=== PATIENT | female | born 1960 | race Caucasian/White ===

== ENCOUNTER 2022-07-21 14:28 | Outpatient (CLI) | payer BC, SELFPAY ==
--- NOTE | 2022-07-21 14:40 | CRLHL7_ITS ---
For Patients: As a result of the Century Cures Act, medical imaging exams and procedure reports are released immediately into your electronic medical record. You may view this report before your referring provider. If you have questions, please contact your health care provider. BILATERAL SCREENING MAMMOGRAM WITH COMPUTER-AIDED DETECTION AND TOMOSYNTHESIS TECHNIQUE: CC and MLO views were obtained. These mammographic images have been obtained using full-field digital technique. These mammographic images were interpreted with the benefit of computer-aided detection. Breast Tomosynthesis was used in this interpretation. COMPARISON FILM: 07/16/21, 07/16/20, 06/17/19. FINDINGS: There are scattered areas of fibroglandular density IMPRESSION: There is no radiographic evidence for malignancy. ASSESSMENT: BI-RADS Category 1: Negative RECOMMENDATION: Routine screening mammogram in 1 year. A lay language report of this examination will be provided to the patient. Stoney Morales M.D. Diagnostic Radiologist [email or web address] NIRALI/Dictated by: Stoney Morales MD @ 07/22/2022 1:13:00 PM (Electronically Signed)
== END 2022-07-21 14:29 | disposition home or self-care (01) ==
LOC: MAMMO 14:29
PROVIDERS: PCP Internal Medicine; Visit Provider Internal Medicine
DX: Z12.31 Encounter for screening mammogram for malignant neoplasm of breast (principal)
CPT/HCPCS: 77063; 77067

== ENCOUNTER 2022-08-19 08:04 | Outpatient (CLI) | payer BC, SELFPAY ==
--- OUTSIDE RECORDS SUMMARY | 2022-08-19 08:07 | XMS_ITS | Encounter Summary ---
:1960 Author Organization [facility] Address [address] [place] [address] Care Team Providers Name Role Phone Unavailable Primary Care Provider Unavailable Encounter Details Date Type Department Care Team Description 03/01/2021 Orders Only [facility] Sa pippa Luis M.D. [address] [place], [place] [phone] (Wo rk) Social History Tobacco Use Types Packs/Day Years Used Date Smoking Tobacco: Former Smokeless Tobacco: Never Alcohol Use Standard Drinks/Week Comments Yes 0 (1 standard drink = 0.6 oz pure alcoho l) Sex Assigned at Date Recorded Not on file documented as of this encounter Plan of Treatment Not on filedocumented as of this encounter Visit Diagnoses Not on filedocumented in this encounter
--- OUTSIDE RECORDS SUMMARY | 2022-08-19 08:07 | XMS_ITS | Encounter Summary ---
:1960 Author Organization [facility] Address [address] [place] [address] Care Team Providers Name Role Phone Unavailable Primary Care Provider Unavailable Reason for Visit Reason Comments Rapid Heart Rate Encounter Details Date Type Department Care Team Description 02/11/2019 Emergency [place] Wade Trevino Emergency Department Mickie EASON M.D. Supraventricular [id number] [address] [place] [address] Paroxysmal (HCC) (Primary [place], [place] Blvd Dx) [address] [place], [place] [phone] (Wo rk) Social History Tobacco Use Types Packs/Day Years Used Date Smoking Tobacco: Former Smokeless Tobacco: Never Alcohol Use Standard Drinks/Week Comments Yes 0 (1 standard drink = 0.6 oz pure alcoho l) Sex Assigned at Date Recorded Not on file documented as of this encounter Last Filed Vital Signs Vital Sign Reading Time Taken Comments Blood Pressure 120/84 02/11/2019 7:00 PM CDT Pulse 84 02/11/2019 7:00 PM CDT Temperature 36.9 ??C (98.4 ??F) 02/11/2019 5:22 PM CDT Respiratory Rate 17 02/11/2019 7:00 PM CDT Oxygen Saturation 94% 02/11/2019 7:00 PM CDT Inhaled Oxygen Concentration - - Weight - - Height - - Body Mass Index - - documented in this encounter Discharge Instructions AttachmentsThe following attachments cannot be sent through Care Everywhere. Supraventricular Tachycardia Adult (Trin[place])documented in this encounter Medications at Time of Discharge Medication Sig Dispensed Refills Start Date End Date aspirin [address] tablet Take 325 mg by mouth. 0 02/14/2013 fluticasone propionate 1 spray. 0 02/17/2013 (FLONASE) 50 mcg/actuation nasal spray multivitamin tablet Take 1 tablet by mouth. 0 gabapentin Take 200 mg by mouth at 0 (for_NEURONTIN) 100 mg bedtime. capsule gabapentin (NEURONTIN) gabapentin 100 mg capsule 0 100 mg capsule 2 tablets qhs levothyroxine Take 1 tablet by mouth 0 11/12/2011 (SYNTHROID) 75 mcg daily. Pt states she tablet takes 80mg levothyroxine levothyroxine 88 mcg tablet 0 (SYNTHROID, LEVOTHROID) once daily 88 mcg tablet documented as of this encounter ED Notes Wade Trevino III, M.D. - 02/11/2019 7:14 PM CDT SUBJECTIVE CHIEF COMPLAINT/REASON FOR VISIT Rapid Heart Rate HISTORY OF PRESENT ILLNESS History provided by: Patient Rapid Heart Rate Location: Chest Quality: Tachycardia Severity: Severe Onset quality: Sudden Duration: 25 minutes Timing: Constant Progression: Unchanged Chronicity: Recurrent Context: History of PSVT Relieved by: Nothing Worsened by: Nothing Ineffective treatments: Vagal maneuvers Associated symptoms: no abdominal pain, no chest pain, no congestion, no cough, no diarrhea, no ear pain, no fatigue, no fever, no nausea, no rash, no shortness of breath, no sore throat, no vomiting and no wheezing Associated symptoms comment: None Risk factors: Hx of PSVT REVIEW OF SYSTEMS Constitutional: Negative for chills, fatigue and fever. HENT: Negative for congestion, ear pain, sore throat and trouble swallowing. Eyes: Negative. Respiratory: Negative for cough, shortness of breath and wheezing. Cardiovascular: Positive for palpitations. Negative for chest pain and leg swelling. Gastrointestinal: Negative for abdominal pain, constipation, diarrhea, nausea and vomiting. Endocrine: Negative for cold intolerance and heat intolerance. Genitourinary: Negative for dysuria, frequency, urgency, vaginal bleeding, vaginal discharge and vaginal pain. Musculoskeletal: Negative. Skin: Negative for color change and rash. Allergic/Immunologic: Negative. Neurological: Negative. Hematological: Negative for adenopathy. Does not bruise/bleed easily. Psychiatric/Behavioral: Negative for depression. OBJECTIVE Initial Vitals Temperature Pulse Rate Heart Rate Resp Rate Blood Pressure SpO2 02/11/19 1722 02/11/19 1730 02/11/19 1722 02/11/19 1722 02/11/19 1722 02/11/19 1722 36.9 ??C (!) 216 (!) 217 20 (!) 149/113 96 % Pain Score -- PHYSICAL EXAMINATION Constitutional: She appears well-developed and well-nourished. She appears distressed. HENT: Head: Normocephalic and atraumatic. Mouth/Throat: Mucous membranes are moist. Eyes: Conjunctivae and EOM are normal. Pupils are equal, round, and reactive to light. Neck: Normal range of motion. Neck supple. No JVD present. No neck adenopathy. Cardiovascular: Regular rhythm, S1 normal, S2 normal and normal heart sounds. Tachycardia present. Pulses are strong and palpable. Capillary refill: takes less than 3 seconds, Pulmonary/Chest: Effort normal and breath sounds normal. There is normal air entry. Abdominal: Soft. Bowel sounds are normal. She exhibits no distension. There is no tenderness. Musculoskeletal: Normal range of motion. Neurological: She is alert and oriented to person, place, and time. She has normal reflexes. No cranial nerve deficit. Skin: Skin is warm, dry, intact and normal color. Psychiatric: She has a normal mood and affect. Nursing note and vitals reviewed. Differential diagnoses includes but is not limited to: Psycho-Social stress, thyroid abnormalities, CHF, SVT, atrial fibrillation, ventricular tachycardia and ventricular fibrillation. This includes the life threatening complications of heart failure, V-Tach and V-Fib. ASSESSMENT/PLAN Impression and Plan After a diagnosis of SVT was made the patient was placed in the seated position. The modified REVERTwas performed successfully x1. Patient's rate returned to normal. Our plan is to have her follow up with her primary medical provider. His been several years since she has had to deal with this. Follow-up will determine whether not she needs to have a more definitive intervention in the future Critical care time less than 30 min. Final Diagnoses: as of Feb 11 1914 Tachycardia Supraventricular Paroxysmal (HCC) Wade Trevino III, M.D. 02/15/192101 Anni Guzman R.N. - 02/11/2019 5:43 PM CDT Pt presents to ED with rapid heart rate accompanied by indigestion and SOB. States she has felt the rapid heart rate previously but it usually resolves on its own. She was concerned that it lasted longer than usual and with the other symptoms. Anni Guzman R.N. 02/11/19 1744 documented in this encounter Plan of Treatment Not on filedocumented as of this encounter Procedures Procedure Name Priority Date/Time Associated Comments Diagnosis TROPONIN T, BASELINE, STAT 02/11/2019 5:49 PM Results for this 5TH GEN, P CDT procedure are i n the results section. ACTIVATED PARTIAL STAT 02/11/2019 5:49 PM Resu lts for this THROMBOPLASTIN TIME CDT procedur e are in (APTT), P the results section. PROTHROMBIN TIME (PT), STAT 02/11/2019 5:49 PM Results for this P CDT procedure are i n the results section. CBC WITH DIFFERENTIAL, STAT 02/11/2019 5:49 PM Results for this B CDT procedure are i n the results section. THYROID-STIMULATING STAT 02/11/2019 5:49 PM Re sults for this HORMONE-SENSITIVE CDT procedure are in (S-TSH) the results section. MAGNESIUM, S STAT 02/11/2019 5:49 PM Results f or this CDT procedure are i n the results section. BASIC METABOLIC PANEL, STAT 02/11/2019 5:49 PM Results for this S/P CDT procedure are i n the results section. ECG STAT 02/11/2019 5:38 PM Results f or this CDT procedure are i n the results section. ECG Routine 02/11/2019 5:22 PM Results f or this CDT procedure are i n the results section. documented in this encounter Results APTT (Activated Partial Thromboplastin Time) (02/11/2019 5:49 PM CDT) P athologist Signature APTT, P 29.5 23.7 - 36.1 02/11/2019 [facility] sec 6:31 PM CDT [facility] Specimen Anatomical Collection Method Collection Time Receive d Time (Source) Location / / Volume Laterality Blood (Blood, 02/11/2019 5:49 PM 02/12/20 19 5:51 Venous) CDT PM CDT Wade Trevino III, M.D. LAB BLOOD ADD-ON Performing Organization Address [facility] Phon e Number [address] [address] [facility] PT (Prothrombin Time) with INR (02/11/2019 5:49 PM CDT) athologist Signature Prothrombin 9.5 8.8 - 11.9 02/11/2019 [facility] Time, P sec 6:29 PM CDT [facility] INR 1.0 0.9 - 1.2 02/11/2019 [facility] 6:29 PM CDT [facility] Comment: Standard intensity warfarin therapeutic range: 2.0 to 3.0 High intensity warfarin therapeutic rang e: 2.5 to 3.5 Specimen Anatomical Collection Method Collection Time Receive d Time (Source) Location / / Volume Laterality Blood (Blood, 02/11/2019 5:49 PM 02/12/20 19 5:51 Venous) CDT PM CDT Wade Trevino III, M.D. LAB BLOOD ADD-ON Performing Organization Address [facility] Phon e Number [address] [address] [facility] Troponin T, Baseline, 5th gen (02/11/2019 5:49 PM CDT) athologist Signature Troponin T, 7 <=10 ng/L 02/11/2019 [facility] Baseline, 5th 6:13 PM CDT [facility]- gen [facility] Comment: Biotin has been identified by the [employer] as a potential interfering substance. ??Higher concentr ations of biotin may be found in multivitamins, hair/nail supple ments, and workout supplements. ??If the result does not ma [facility] clinical observations, repeat testing after patient refrains fr om the use of supplements for at least 12 hours. Specimen Anatomical Collection Method Collection Time Receive d Time (Source) Location / / Volume Laterality Blood (Blood, 02/11/2019 5:49 PM 02/12/20 19 5:51 Venous) CDT PM CDT Wade Trevino III, M.D. LAB BLOOD TROPONIN Performing Organization Address City/[facility]/ZIP Code Phon e Number [address] [address] [facility] S-TSH (Thyroid-Stimulating Hormone - Sensitive) (02/11/2019 5:49 PM CDT) athologist Signature TSH, Sensitive 2.3 0.3 - 4.2 02/11/2019 [facility] mIU/L 6:20 PM CDT [facility] Comment: Biotin has been identified by the [employer] as a potential interfering substance. ??Higher concentr ations of biotin may be found in multivitamins, hair/nail supple ments, and workout supplements. ??If the result does not ma h clinical observations, repeat testing after patient refrains fr om the use of supplements for at least 12 hours. Specimen Anatomical Collection Method Collection Time Receive d Time (Source) Location / / Volume Laterality Blood (Blood, 02/11/2019 5:49 PM 02/12/20 19 5:51 Venous) CDT PM CDT Wade Trevino III, M.D. LAB BLOOD ADD-ON Performing Organization Address [facility]/ZIP Code Phon e Number [address] [address] [facility] Magnesium (02/11/2019 5:49 PM CDT) athologist Signature Magnesium, S 2.1 1.7 - 2.3 02/11/2019 [facility] mg/dL 6:06 PM CDT [facility] Specimen Anatomical Collection Method Collection Time Receive d Time (Source) Location / / Volume Laterality Blood (Blood, 02/11/2019 5:49 PM 02/12/20 19 5:51 Venous) CDT PM CDT Wade Trevino III, M.D. LAB BLOOD ADD-ON Performing Organization Address [facility]/ZIP [facility] Phon e Number [address] [address] [facility] (ABNORMAL) BMP (Basic Metabolic Panel) (02/11/2019 5:49 PM CDT) P athologist Signature Potassium, P 3.4 (L) 3.6 - 5.2 02/11/2019 [facility] mmol/L 6:11 PM T [facility] Sodium, P 141 135 - 145 02/11/2019 [facility] mmol/L 6:11 PM [facility] Chloride, P 102 98 - 107 02/11/2019 [facility] mmol/L 6:11 PM [facility] Bicarbonate, P 22 22 - 29 02/11/2019 [facility] mmol/L 6:11 PM [facility] Anion Gap, P 17 (H) 7 - 15 02/11/2019 [facility] 6:11 PM [facility] BUN (Blood Urea 13 6 - 21 02/11/2019 [facility] Nitrogen), P mg/dL 6:11 PM [facility] Creatinine 0.83 0.59 - 02/11/2019 [facility] 1.04 mg/dL 6:11 PM [facility] eGFR-Black/Afri >90 >=60 02/11/2019 [facility] can Danish mL/min/BSA 6:11 PM [facility] Comment: ----ADDITIONAL INFORMATION---- Estimated GFR calculated using the 2009 CKD_EPI creatinine equation. eGFR Non-Black/ 79 >=60 mL/min/BSA 02/11/2019 6:11 PM [facility] Danish [facility] Comment: ----ADDITIONAL INFORMATION---- Estimated GFR calculated using the 2009 CKD_EPI creatinine equation. Calcium, Total, P 9.1 8.6 - 10.0 mg/dL 02/11/2019 6 :11 PM T [facility] Glucose, P 138 70 - 140 mg/dL 02/11/2019 6:11 PM CDT [facility] Specimen Anatomical Collection Method Collection Time Receive d Time (Source) Location / / Volume Laterality Blood (Blood, 02/11/2019 5:49 PM 02/12/20 19 5:51 Venous) CDT PM CDT Wade Trevino III, M.D. LAB BLOOD ADD-ON Performing Organization Address City/State/ZIP Code Phon e Number [facility] [id number] [address] [facility] (ABNORMAL) CBC with Differential (02/11/2019 5:49 PM CDT) [facility] Method Time Signature Hemoglobin 12.0 11.6 - 02/11/2019 [facility] 15.0 g/dL 5:57 PM CDT [facility] Hematocrit 36.5 35.5 - 02/11/2019 [facility] 44.9 % 5:57 PM CDT [facility] Erythrocytes 4.17 3.92 - 02/11/2019 [facility] 5.13 5:57 PM CDT HEALTH x10(12)/L [facility] MCV 87.5 78.2 - 02/11/2019 [facility] 97.9 fL 5:57 PM CDT [facility] RBC Distrib Width 13.5 12.2 - 02/11/2019 [facility] 16.1 % 5:57 PM CDT [facility] Platelet Count 373 (H) 157 - 371 02/11/2019 [facility] x10(9)/L 5:57 PM CDT [facility] Leukocytes 9.6 3.4 - 9.6 02/11/2019 [facility] x10(9)/L 5:57 PM CDT [facility] Neutrophils 5.29 1.56 - 02/11/2019 [facility] 6.45 5:57 PM CDT HEALTH x10(9)/L [facility] Lymphocytes 3.66 (H) 0.95 - 02/11/2019 [facility] 3.07 5:57 PM CDT HEALTH x10(9)/L [facility] Monocytes 0.45 0.26 - 02/11/2019 [facility] 0.81 5:57 PM CDT HEALTH x10(9)/L [facility] Eosinophils 0.15 0.03 - 02/11/2019 [facility] 0.48 5:57 PM CDT HEALTH x10(9)/L [facility] Basophils 0.03 0.01 - 02/11/2019 [facility] 0.08 5:57 PM CDT HEALTH x10(9)/L [facility]- [facility] Specimen Anatomical Collection Method Collection Time Receive d Time (Source) Location / / Volume Laterality Blood (Blood, 02/11/2019 5:49 PM 02/12/20 19 5:51 Venous) CDT PM CDT Wade Trevino III, M.D. LAB BLOOD ADD-ON Performing Organization Address City/State/ZIP Code Phon e Number [facility]- [id number] [address] [facility] ECG 12 Lead (02/11/2019 5:38 PM CDT) P athologist Signature Ventricular Rate 112 BPM MUSE ECG/Min [place] Interval 184 ms MUSE QRSD Interval 86 ms MUSE QT Interval 328 ms MUSE QTC Interval 447 ms MUSE P [place] 1 degrees MUSE R [place] 21 degrees MUSE T Wave [place] 12 degrees MUSE Specimen Anatomical Collection Method Collection Time Receive d Time (Source) Location / / Volume Laterality 02/11/2019 5:38 PM 9 5:41 CDT PM CDT Impressions MUSE - 02/11/2019 5:41 PM CDT Sinus tachycardia Otherwise normal ECG When compared with ECG of 11-FEB-2019 17 :22, Significant changes have occurred Narrative This result has an attachment that is no t available. Procedure Note Moises Tovar Jr., M.D. - 02/11/2019For matting of this note might be different from the original. IMPRESSION: Sinus tachycardia Otherwise normal ECG When compared with ECG of 11-FEB-2019 17 :22, Significant changes have occurred Wade Trevino III, M.D. ECG ORDERABLES Performing Organization Address City/State/ZIP Code Phon e Number MUSE MUSE NA ECG 12 Lead (Routine) (02/11/2019 5:22 PM CDT) P athologist Signature Ventricular Rate 211 BPM MUSE ECG/Min QRSD Interval 86 ms MUSE QT Interval 210 ms MUSE QTC Interval 393 ms MUSE R [place] 22 degrees MUSE T Wave [place] 165 degrees MUSE Specimen Anatomical Collection Method Collection Time Receive d Time (Source) Location / / Volume Laterality 02/11/2019 5:22 PM 9 5:28 CDT PM CDT Impressions MUSE - 02/11/2019 5:28 PM CDT Supraventricular tachycardia ST and T wave abnormality, consider infe rolateral ischemia No previous ECGs available Narrative This result has an attachment that is no t available. Procedure Note Moises Tovar Jr., M.D. - 02/11/2019For matting of this note might be different from the original. IMPRESSION: Supraventricular tachycardia ST and T wave abnormality, consider infe rolateral ischemia No previous ECGs available Wade Trevino III, M.D. ECG ORDERABLES Performing Organization Address City/State/ZIP Code Phon e Number MUSE MUSE NA documented in this encounter Visit Diagnoses Diagnosis Tachycardia Supraventricular Paroxysmal (HCC) - Primary documented in this encounter Administered Medications Inactive Administered Medications - up to 3 most recent administrations Medication Order MAR Action Action Date Dose Rate Site sodium chloride 0.9 % injection 10 mL 10 mL, intravenous, As needed, line care, Starting on Thu02/11/19 at 1737, Peripheral Intravenous Catheter and Rapid Infusion Cat heter, prior to blood sampling, post blood transfusion or post blood samplin g sodium chloride 0.9 % injection 3 mL 3 mL, intravenous, As needed, line care, Starting on Thu02/11/19 at 1737, Prior to and following infusion and between multi ple consecutive infusions: sodium chloride 0.9 % injection sodium chloride 0.9 % injection 3 mL 3 mL, intravenous, Every 12 hours scheduled, First dos e on Thu02/11/19 at 2100, Peripheral Intravenous Catheter and Rapi d Infusion Catheter, when no infusion to maintain patency documented in this encounter Active and Recently Administered Medications Times are shown in CDT. Scheduled Medication Order 02/09/2019 02/10/2019 02/11/2019 sodium chloride 0.9 % injection 3 mL 3 mL, intravenous, Every 12 hours schedu led, First dose on Thu02/11/19 at 2100, Peripheral Intravenous Catheter and Rapid Infusion Catheter, when no infusion to maintain patency PRN Medication Order 02/09/2019 02/10/2019 02/11/2019 sodium chloride 0.9 % injection 10 mL 10 mL, intravenous, As needed, line care , Starting on Thu02/11/19 at 1737, Peripheral Intravenous Catheter and Rapid Infusion Catheter, prior to blood sampling, post blood transfusion or post blood sampling sodium chloride 0.9 % injection 3 mL 3 mL, intravenous, As needed, line care, Starting on Thu02/11/19 at 1737, Prior to and following infusion and between multiple consecutive infusions: sodium chloride 0.9 % injection documented in this encounter
--- OUTSIDE RECORDS SUMMARY | 2022-08-19 08:07 | XMS_ITS | Encounter Summary ---
:1960 Author Organization [facility] Address [address] [place] [address] Care Team Providers Name Role Phone Unavailable Primary Care Provider Unavailable Reason for Visit Reason Comments Finger Injury crushing thumb right hand ye sterday morning. unable to move it well Appointment Request (Routine) - Closed Specialty Diagnoses / Procedures Referred By Contact Refer red To Contact Family Medicine Referral ID Status Reason Start Date Expiration Date Visits Requ ested Visits Authorized [id number] Closed 11/12/2020 11/12/2021 1 1 Encounter Details Date Type Department Care Team Description 11/12/2020 Office Visit Urgent Care in [place] Simon Rodriguez, Pain [place], [place] P.A.-C., P.A. (Primary Dx) [address] [phone] Social History Tobacco Use Types Packs/Day Years Used Date Smoking Tobacco: Former Smokeless Tobacco: Never Alcohol Use Standard Drinks/Week Comments Yes 0 (1 standard drink = 0.6 oz pure alcoho l) Sex Assigned at Date Recorded Not on file documented as of this encounter Last Filed Vital Signs Vital Sign Reading Time Taken Comments Blood Pressure 156/95 11/12/2020 2:02 PM PICKLE MAKER Pulse 73 11/12/2020 2:02 PM PICKLE MAKER Temperature 36.3 ??C (97.3 ??F) 11/12/2020 2:02 PM PICKLE MAKER Respiratory Rate 20 11/12/2020 2:02 PM PICKLE MAKER Oxygen Saturation 100% 11/12/2020 2:02 PM PICKLE MAKER Inhaled Oxygen Concentration - - Weight 87.6 kg (193 lb 2 oz) 11/12/2020 2:02 PM PICKLE MAKER Height 159.4 cm (5' 2.76) 11/12/2020 2:02 PM PICKLE MAKER Body Mass Index 34.48 11/12/2020 2:02 PM PICKLE MAKER documented in this encounter Patient Instructions Patient InstructionsSimon Rodriguez P.A.-C., P.A. - 11/12/2020 2:00 PM PICKLE MAKER Thank you for allowing me to participate in your care. Please take medication as prescribed. Return to the clinic/ER if symptoms worsen or fail to improve; or if they change in any manner. Please complete your health maintenance, or discuss this with your primary care provider and receiveyour annual exam if not done so already! Ice, motrin and keep splint on for the next 5-7 days. LE MAKER documented in this encounter Progress Notes Simon Rodriguez P.A.-C., P.A. - 11/12/2020 2:00 PM CST SUBJECTIVE Patient ID: Ashleigh Acevedo is a 60 y.o. female. HISTORY OF PRESENT ILLNESS A pleasant 52-year-old female presents to clinic today after she smashed her thumb around 730 yesterday morning in a door open outdoor heater. She states that it did bleed a little bit locates the discomfort located on the right thumb. She is right-handed dominant. She states that she does have range of motion present to flexion extension of the thumb but does cause discomfort locates the pain right at the distal aspect of the thumb and describes it as throbbing. No history of injury to the thumb. She has tried [id number] medication without complete resolution of her symptoms. REVIEW OF SYSTEMS See HPI Patient Active Problem List Diagnosis ??? Hypothyroidism ??? Temporomandibular Joint Disorder ??? Menopausal And Female Climacteric States ??? Osteoarthritis ??? Palpitations ??? Polyp Colon Adenomatous ??? Rhinitis Allergic ??? Myofascial Pain Syndrome CURRENT MEDICATIONS Current Outpatient Medications: ??? aspirin [address] tablet, Take 325 mg by mouth., Disp: , Rfl: ??? fluticasone propionate (FLONASE) 50 mcg/actuation nasal spray, 1 spray., Disp: , Rfl: ??? gabapentin (for_NEURONTIN) 100 mg capsule, Take 200 mg by mouth at bedtime., Disp: , Rfl: ??? gabapentin (NEURONTIN) 100 mg capsule, gabapentin 100 mg capsule 2 tablets qhs, Disp: , Rfl: ??? levothyroxine (SYNTHROID) 75 mcg tablet, Take 1 tablet by mouth daily. Pt states she takes 80mg,Disp: , Rfl: ??? levothyroxine (SYNTHROID, LEVOTHROID) 88 mcg tablet, levothyroxine 88 mcg tablet once daily, Disp: , Rfl: ??? multivitamin tablet, Take 1 tablet by mouth., Disp: , Rfl: ??? omeprazole (PriLOSEC) [address] capsule, Take 20 mg by mouth daily., Disp: , Rfl: ??? traMADoL (ULTRAM) 50 mg tablet, Take 1 tablet (50 mg total) by mouth every 6 (six) hours as needed for pain for up to 3 days Indications: acute pain., Disp: 12 tablet, Rfl: 0 ALLERGIES/CONTRAINDICATIONS Allergies Allergen Reactions ??? No Known Allergies Other (see comments) OBJECTIVE VITAL SIGNS Vitals: 11/12/20 1402 BP: (!) 156/95 BP Location: Left arm Patient Position: Sitting Cuff Size: Large Pulse: 73 Resp: 20 Temp: 36.3 ??C SpO2: 100% Weight: 87.6 kg Height: 159.4 cm PHYSICAL EXAMINATION General: Patient sitting in exam room in no apparent distress, with appropriate mood and affect. Inspection the thumb does reveal edema as well as subungunal hematoma. She does have no anatomical snuffbox discomfort palpation good range of motion the thumb discomfort is more the distal aspect of the thumb but bracing the DIP she does still have flexion and extension. Dx Thumb Right Result Date: 11/12/2020 Impression: No acute fracture. Mild to moderate polyarticular degenerative change. DIAGNOSTICS No results found for this or any previous visit (from the past 24 hour(s)). ASSESSMENT / PLAN #1 Pain Thumb Right - DX Thumb Right; Future; Expected date: 11/12/2020 Other orders - traMADoL (ULTRAM) 50 mg tablet; Take 1 tablet (50 mg total) by mouth every 6 (six) hours as neededfor pain for up to 3 days Indications: acute pain., Starting 11/12/2020, Until Jackie 11/15/2020, Normal - Td (TENIVAC, DECAVAC) Vaccine PF (7 years and older) Plan: 1. Thumb contusion which we will treat with use of tramadol for breakthrough pain after anti-inflammatory medications have been updated. Tetanus shot has been updated and also place in a thumb brace toprotect that area. Good return sooner if symptoms worsen or fail to improve. The side effects of the medication were discussed and the patient/family member showed verbal understanding. They will return to the clinic * if symptoms worsen, fail to improve or change. Health maintenance reminded to complete if not already completed. LE MAKER documented in this encounter Plan of Treatment Not on filedocumented as of this encounter Results DX Thumb Right (11/12/2020 2:30 PM PICKLE MAKER) Anatomical Region Laterality Modality Upper Extremity, Fingers, Musculoskeletal RST LOS, Right Digital Radiography Musculoskeletal ARZ LOS, Muskuloskeletal FLA LOS Specimen (Source) Anatomical Collection Method Collection Time Re ceived Time Location / / Volume Laterality 11/12/2020 2:34 PM PICKLE MAKER Impressions 11/12/2020 2:37 PM PICKLE MAKER No acute fracture. Mild to moderate polyarticular degenerative change. Narrative 11/12/2020 2:37 PM PICKLE MAKER EXAM: DX THUMB RIGHT Procedure Note Oscar Loomis M.D. - 11/12/2020Formatt ing of this note might be different from the original. EXAM: DX THUMB RIGHT IMPRESSION: No acute fracture. Mild to moderate poly articular degenerative change. Simon Rodriguez P.A.-C., P.A. [facility] PROC EDURES documented in this encounter Visit Diagnoses Diagnosis Pain Thumb Right - Primary Pain Thumb Right documented in this encounter
--- OUTSIDE RECORDS SUMMARY | 2022-08-19 08:07 | XMS_ITS | Clinical Summary ---
:1960 Author Organization [facility] Address [address] [place] [address] Care Team Providers Name Role Phone Unavailable Primary Care Provider Unavailable Source Comments Patient records contain information from all sites at [facility]. For routine questions regarding patient records, call [phone] during business hours, M-F 8:00 AM - 5:00 PM Central Time. Record requests for emergency care only can be directed to [phone] at any time.[facility] Allergies Active Allergy Reactions Severity Noted Date Comments No Known Allergies Other (see comments) 11/12/2011 Medications Medication Sig Dispensed Refills Start Date End Date Status levothyroxine Take 1 tablet by 0 11/12/2011 Active (SYNTHROID) 75 mcg mouth daily. Pt tablet states she takes 80mg gabapentin Take 200 mg by mouth 0 Active (for_NEURONTIN) 100 at bedtime. mg capsule aspirin [address] Take 325 mg by 0 02/14/2013 Active tablet mouth. fluticasone 1 spray. 0 02/17/2013 Active propionate (FLONASE) 50 mcg/actuation nasal spray gabapentin gabapentin 100 mg capsule 0 Active (NEURONTIN) 100 mg 2 tablets qhs capsule levothyroxine levothyroxine 88 mcg tablet 0 Active (SYNTHROID, once daily LEVOTHROID) 88 mcg tablet multivitamin tablet Take 1 tablet by 0 05/27/2011 Active mouth. omeprazole Take 20 mg by mouth 0 10/17/2020 Active (PriLOSEC) [address] daily. capsule Active Problems Problem Noted Date Menopausal And Female Climacteric States 11/12/2020 Temporomandibular Joint Disorder 09/10/2018 Osteoarthritis 09/10/2018 Myofascial Pain Syndrome 09/10/2018 Hypothyroidism 02/25/2014 Overview: Hypothyroidism Polyp Colon Adenomatous 04/27/2013 Overview: Overview: Colonoscopy 03/2013 polyp repeat in 5 yea rs Palpitations 12/03/2011 Rhinitis Allergic 05/27/2011 Immunizations Name Administration Dates Next Due Influenza (IM) Preservative Free 10/15/2013, 10/06/2007 Influenza TIV (IM) 08/30/2018 Influenza, Seasonal, Injectable 10/09/2011 RZV (SHINGRIX) 01/26/2020 Td Preservative Free (TENIVAC, 11/12/2020 DECAVAC) Tdap 08/12/2010 influenza vaccine quad 08/03/2017, 08/23/2016, 08/26/2015, (FLUZONE/FLUARIX) (6 months and 08/26/2014 older)(PF) Family History Medical History Relation Name Comments Hyperlipidemia Mother Hypertension Mother Relation Name Status Comments Mother Social History Tobacco Use Types Packs/Day Years Used Date Smoking Tobacco: Former Smokeless Tobacco: Never Alcohol Use Standard Drinks/Week Comments Yes 0 (1 standard drink = 0.6 oz pure alcoho l) Sex Assigned at Date Recorded Not on file Last Filed Vital Signs Vital Sign Reading Time Taken Comments Blood Pressure 156/95 11/12/2020 2:02 PM BRANCH CONTROLLER Pulse 73 11/12/2020 2:02 PM BRANCH CONTROLLER Temperature 36.3 ??C (97.3 ??F) 11/12/2020 2:02 PM BRANCH CONTROLLER Respiratory Rate 20 11/12/2020 2:02 PM BRANCH CONTROLLER Oxygen Saturation 100% 11/12/2020 2:02 PM BRANCH CONTROLLER Inhaled Oxygen Concentration - - Weight 87.6 kg (193 lb 2 oz) 11/12/2020 2:02 PM BRANCH CONTROLLER Height 159.4 cm (5' 2.76) 11/12/2020 2:02 PM BRANCH CONTROLLER Body Mass Index 34.48 11/12/2020 2:02 PM BRANCH CONTROLLER Plan of Treatment Health Maintenance Due Date Last Done Comments CT Colonography 1960 Cologuard 1960 Colonoscopy 1960 Colorectal Cancer 1960 Surveillance HIV Screening 1960 Hepatitis B Vaccines (1 of 1962 3 - 3-dose series) Hepatitis C Screening 1960 Lipid (Cholesterol) 1960 Screening Mammogram 1960 COVID-19 Vaccine (#1) 1960 Thyroid Stimulating Hormone 02/12/2020 02/11/2019 (TSH) test for thyroid function Cervical Cancer Screening 06/08/2021 06/08/2018 Depression Screening 11/30/2021 (Annual PHQ-2) Fasting Glucose for 02/11/2022 02/11/2019 Diabetes Screening Influenza Vaccine (#1) 2022 09/01/2020, 10/25/2019, 08/30/2018, Additional history exists DTaP,Tdap,and Td Vaccines 11/12/2030 11/12/2020, 07/12/2020 , (4 - Td or Tdap) 08/12/2010 Zoster Vaccines Completed 01/26/2020, 09/02/2019 Pneumococcal vaccine (0-64 Aged Out No lo nger eligible years) based on patient 's age to complete this topic Insurance Payer Benefit Plan Subscriber ID Effective Phone Address Typ e / Group Dates STATE [facility] STATE FUND [id number] 2018-Pres [address] [place] [address] [facility] [id number] 2016-Prese [phone] [id number] PPO [facility] [address] [place] [address] [place] (Home) [place] [address] [address] [employer] [address] [employer] Workers Comp Employer 11/30/1900 [phone] ([place]) [place] [address]
--- OUTSIDE RECORDS SUMMARY | 2022-08-19 08:07 | XMS_ITS | Encounter Summary ---
:1960 Author Organization [facility] Address [address] [place] [address] Care Team Providers Name Role Phone Unavailable Primary Care Provider Unavailable Encounter Details Date Type Department Care Team Description 02/19/2018 Hospital Encounter Department of Korina Rahman, Pain Hand Right Radiology in [facility] C.N..[place], [place] D.N.P. [id number] [place] [phone] Social History Tobacco Use Types Packs/Day Years Used Date Smoking Tobacco: Former Smokeless Tobacco: Never Sex Assigned at Date Recorded Not on file documented as of this encounter Medications at Time of Discharge Medication Sig Dispensed Refills Start Date End Date aspirin [address] tablet Take 325 mg by 0 013 mouth. fluticasone propionate 1 spray. 0 02/17/2013 (FLONASE) 50 mcg/actuation nasal spray gabapentin (for_NEURONTIN) Take 200 mg by mouth 0 100 mg capsule at bedtime. levothyroxine (SYNTHROID) Take 1 tablet by 0 10/30 75 mcg tablet mouth daily. Pt states she takes 80mg multivitamin tablet Take 1 tablet by 0 05/27/2011 mouth. documented as of this encounter Plan of Treatment Not on filedocumented as of this encounter Procedures Procedure Name Priority Date/Time Associated Comments Diagnosis DX HAND RIGHT 3 RAD - Routine 02/19/2018 11:10 Pain Hand Right Resu lts for this VIEWS (most inpatients AM CDT procedure a re in and all the results outpatients) section. documented in this encounter Results DX Hand Right 3 Views (02/19/2018 11:10 AM CDT) Anatomical Region Laterality Modality Upper Extremity, Hand Right Digital Radiograph y Specimen (Source) Anatomical Collection Method Collection Time Re ceived Time Location / / Volume Laterality 02/19/2018 11:21 AM CDT Impressions 02/19/2018 11:22 AM CDT IMPRESSION: Comparison: 01/19/2018. Again noted is oblique fracture involvin g the mid fifth metacarpal shaft. Slight lateral displacement of the distal fract ure fragment is noted, new or slightly progressed from the previous exam. Other montes normal alignment. Fracture line remains evident with interval developmen t of callus formation about the fracture consistent with a component of interval healing. No other evidence of fracture. No dislocation. No bony erosive or osteo lytic changes. Narrative 02/19/2018 11:22 AM CDT EXAM: DX HAND RIGHT 3 VIEWS Procedure Note Arthur Croft M.D. - 02/19/2018Formatt ing of this note might be different from the original. EXAM: DX HAND RIGHT 3 VIEWS IMPRESSION: Comparison: 01/19/2018. Again noted is oblique fracture involvin g the mid fifth metacarpal shaft. Slight lateral displacement of the distal fract ure fragment is noted, new or slightly progressed from the previous exam. Other montes normal alignment. Fracture line remains evident with interval developmen t of callus formation about the fracture consistent with a component of interval healing. No other evidence of fracture. No dislocation. No bony erosive or osteo lytic changes. Korina Rahman APRN, C.N.P., D.N.P. IMG DIAGNOSTIC IMAG ING PROCEDURES documented in this encounter Visit Diagnoses Diagnosis Pain Hand Right documented in this encounter
--- OUTSIDE RECORDS SUMMARY | 2022-08-19 08:07 | XMS_ITS | Encounter Summary ---
:1960 Author Organization [facility] Address [address] [place] [address] Care Team Providers Name Role Phone Unavailable Primary Care Provider Unavailable Reason for Visit Reason Onset Date Comments Paper Work 05/26/2018 HCPR Encounter Details Date Type Department Care Team Description 05/26/2018 Clinical Communication Department of Korina Rahman Work (HCPR ) Orthopedic Surgery JAYDEN Lambert, in [place], C.N.P., D.N.P. [address] [phone] Social History Tobacco Use Types Packs/Day Years Used Date Smoking Tobacco: Former Smokeless Tobacco: Never Sex Assigned at Date Recorded Not on file documented as of this encounter Miscellaneous Notes Telephone Encounter - Irma Foss - 05/26/2018 2:27 PM CDT HCPR is with Korina Rahman for right hand fx ( doi 01/19/18) documented in this encounter Plan of Treatment Not on filedocumented as of this encounter Visit Diagnoses Not on filedocumented in this encounter
--- OUTSIDE RECORDS SUMMARY | 2022-08-19 08:07 | XMS_ITS | Encounter Summary ---
:1960 Author Organization [facility] Address [address] [place] [address] Care Team Providers Name Role Phone Unavailable Primary Care Provider Unavailable Encounter Details Date Type Department Care Team Description 11/12/2020 Hospital Encounter Department of Simon Rodriguez [facility] [phone] Social History Tobacco Use Types Packs/Day Years Used Date Smoking Tobacco: Former Smokeless Tobacco: Never Alcohol Use Standard Drinks/Week Comments Yes 0 (1 standard drink = 0.6 oz pure alcoho l) Sex Assigned at Date Recorded Not on file documented as of this encounter Medications at Time of Discharge Medication Sig Dispensed Refills Start Date End Date aspirin [address] Take 325 mg by mouth. 0 013 tablet fluticasone propionate 1 spray. 0 02/17/2013 (FLONASE) 50 mcg/actuation nasal spray gabapentin Take 200 mg by mouth 0 (for_NEURONTIN) 100 mg at bedtime. capsule gabapentin (NEURONTIN) gabapentin 100 mg capsule 0 100 mg capsule 2 tablets qhs levothyroxine Take 1 tablet by mouth 0 11/12/2011 (SYNTHROID) 75 mcg daily. Pt states she tablet takes 80mg levothyroxine levothyroxine 88 mcg tablet 0 (SYNTHROID, LEVOTHROID) once daily 88 mcg tablet multivitamin tablet Take 1 tablet by 0 05/27/2011 mouth. omeprazole (PriLOSEC) Take 20 mg by mouth 0 10/[address] capsule daily. traMADoL (ULTRAM) 50 mg Take 1 tablet (50 mg 12 tablet 0 11/15/2020 tabletIndications: total) by mouth every Acute Pain 6 (six) hours as needed for pain for up to 3 days Indications: acute pain. documented as of this encounter Plan of Treatment Not on filedocumented as of this encounter Procedures Procedure Name Priority Date/Time Associated Comments Diagnosis DX THUMB RIGHT RAD - Routine 11/12/2020 2:30 Pain Thumb Right Resul ts for this (most inpatients PM WAITER WAITRESS procedure a re in and all the results outpatients) section. documented in this encounter Results DX Thumb Right (11/12/2020 2:30 PM WAITER WAITRESS) Anatomical Region Laterality Modality Upper Extremity, Fingers, Musculoskeletal RST LOS, Right Digital Radiography Musculoskeletal ARZ LOS, Muskuloskeletal FLA LOS Specimen (Source) Anatomical Collection Method Collection Time Re ceived Time Location / / Volume Laterality 11/12/2020 2:34 PM WAITER WAITRESS Impressions 11/12/2020 2:37 PM WAITER WAITRESS No acute fracture. Mild to moderate polyarticular degenerative change. Narrative 11/12/2020 2:37 PM WAITER WAITRESS EXAM: DX THUMB RIGHT Procedure Note Oscar Loomis M.D. - 11/12/2020Formatt ing of this note might be different from the original. EXAM: DX THUMB RIGHT IMPRESSION: No acute fracture. Mild to moderate poly articular degenerative change. Simon Rodriguez P.A.-C., P.A. IMG DIAGNOSTIC IMAGING PROC EDURES documented in this encounter Visit Diagnoses Diagnosis Pain Thumb Right documented in this encounter
--- OUTSIDE RECORDS SUMMARY | 2022-08-19 08:07 | XMS_ITS | Encounter Summary ---
:1960 Author Organization [facility] Address [address] [place] [address] Care Team Providers Name Role Phone Unavailable Primary Care Provider Unavailable Reason for Visit Reason Onset Date Comments HCPR 06/29/2018 Paper Work Encounter Details Date Type Department Care Team Description 06/29/2018 Clinical Communication Department of Korina Rahman HCPR (Paper Work ) Orthopedic Surgery JAYDEN Lambert in [place], C.N.P., D.N.P. [address] [phone] Social History Tobacco Use Types Packs/Day Years Used Date Smoking Tobacco: Former Smokeless Tobacco: Never Sex Assigned at Date Recorded Not on file documented as of this encounter Miscellaneous Notes Telephone Encounter - Irma Foss - 06/29/2018 1:53 PM CDT HCPR for [facility] NO PPD. Copy to chart. Faxed to Dwayne Douglass [phone] documented in this encounter Plan of Treatment Not on filedocumented as of this encounter Visit Diagnoses Not on filedocumented in this encounter
--- OUTSIDE RECORDS SUMMARY | 2022-08-19 08:08 | XMS_ITS | Encounter Summary ---
:1960 Author Organization [facility] Address [address] [place] [address] Care Team Providers Name Role Phone Unavailable Primary Care Provider Unavailable Reason for Visit Reason Comments Cast Check Encounter Details Date Type Department Care Team Description 02/19/2018 Office Visit Department [facility] Korina Rahman, [facility] in [place].N.PMercedes, (Prim yanet Dx) Landry HensonN.P. [address] [phone] Social History Tobacco Use Types Packs/Day Years Used Date Smoking Tobacco: Former Smokeless Tobacco: Never Sex Assigned at Date Recorded Not on file documented as of this encounter Progress Notes Korina Rahman, Rosa M CARPENTERNSofia, D.N.P. - 02/19/2018 10:30 AM CDT Is a very pleasant 57-year-old female who comes in today for a recheck of her right hand 5th MCP fracture. Patient is now 4 weeks out from casting and is here today for follow-up care. She denies any numbness or tingling distal to her injury. Physical exam general patient appears nondistressed left hand 5th MCP with minimal tenderness there is some stiffness noted. Diagnostic studies healing oblique fracture noted at the mid right 5th metacarpal shaft. Impression plan 1. Is status post 5th metacarpal fracture. Patient is cast was removed. patient is doing quite well she will have her continue with motion flexion-extension to help with the stiffness. if she is unable to fully flex her finger within the next 2 weeks of working on it will then have hercontact us and we will send her to occupational therapy. she agrees and understands that plan. she also can sue tape to help support it. documented in this encounter Plan of Treatment Not on filedocumented as of this encounter Results DX Hand Right 3 [...] No bony erosive or osteo lytic changes. Aditi Fox APRN.N.Nadir., D.N.P. IMG DIAGNOSTIC IMAG ING PROCEDURES documented in this encounter Visit Diagnoses Diagnosis Pain Hand Right - Primary Pain Hand Right documented in this encounter
--- OUTSIDE RECORDS SUMMARY | 2022-08-19 08:08 | XMS_ITS | Encounter Summary ---
:[address] [facility] Address [address] [place] [address] Care Team Providers Name Role Phone Unavailable Primary Care Provider Unavailable Reason for Referral Outpatient (Routine) - Closed Specialty Diagnoses / Procedures Referred By Contact Refer red To Contact Orthopedic Surgery Diagnoses Fracture Fifth Metacarpal Base Nondisplaced Closed Initial Right Mariia Kaye (Behzad) [facility] [place] EASON, M.P.H. [address] [place] [address] Referral ID Status Reason Start Date Expiration Date Visits Requ ested Visits Authorized [id number] Closed 01/19/2018 07/18/2018 1 1 Scheduling Instructions Schedule after imaging orders [employer] Reason for Visit Reason Comments Pain In Limb Pt states she fell on the ic e and landed on hand . Has right lateral hand pain intop fifith didgi t Encounter Details Date Type Department Care Team Description 01/19/2018 Emergency [place] Mariia Kaye [facility] Fifth Department (Cindy EASON M.D., Metacarpal Base [id number] M[facility] Nondisplaced Closed [place], [place] [address] Initial Right (Primary [id number] [place], [place] Dx) [phone] [id number] Social History Tobacco Use Types Packs/Day Years Used Date Smoking Tobacco: Former Sex Assigned at Date Recorded Not on file documented as of this encounter Last Filed Vital Signs Vital Sign Reading Time Taken Comments Blood Pressure 148/82 01/19/2018 2:29 PM [employer] Pulse 63 01/19/2018 2:29 PM [employer] Temperature 37 ??C (98.6 ??F) 01/19/2018 2:29 PM [employer] Respiratory Rate 20 01/19/2018 2:29 PM [employer] Oxygen Saturation 97% 01/19/2018 2:29 PM [employer] Inhaled Oxygen Concentration - - Weight 95.6 kg (210 lb 12.2 oz) 01/19/2018 2:31 PM [employer] Height - - Body Mass Index - - documented in this encounter Discharge Instructions AttachmentsThe following attachments cannot be sent through Care Everywhere. Boxer's Fracture (Jamaican)documented in this encounter Medications at Time of Discharge Medication Sig Dispensed Refills Start Date End Date gabapentin (for_NEURONTIN) Take 200 mg by mouth 0 100 mg capsule at bedtime. levothyroxine (SYNTHROID) Take 1 tablet by 0 10/30 75 mcg tablet mouth daily. Pt states she takes 80mg aspirin [address] tablet Take 325 mg by 0 013 mouth. fluticasone propionate 1 spray. 0 02/17/2013 (FLONASE) 50 mcg/actuation nasal spray multivitamin tablet Take 1 tablet by 0 05/27/2011 mouth. documented as of this encounter Procedure Notes Mariia Kaey III, M.D. (Skip), M.P.H. - 01/19/2018 3:25 PM CSTAssociated Order(s): SPLINT APPLICATION Procedure Splint Application Date/Time: 01/19/2018 3:28 PM Performed by: MARIIA KAYE III) Authorized by: MARIIA KAYE III) Pre-procedure details: Procedure type: application Performed by: Physician Indication: fracture Location: Hand Hand: Right hand Circulation distal to injury: capillary refill < 2 sec Movement distal to injury: normal Sensation distal to injury: normal Sedation/Anesthesia (see MAR for exact dosages): Anesthesia method: None Procedure details: Immobilization: Sling and splint Splint type: Ulnar gutter Supplies used: Ortho-Glass, cotton padding and elastic bandage Post-procedure details: Procedure completed successfully: yes Pain: Unchanged Circulation distal to injury: capillary refill < 2 sec Movement distal to injury: normal Sensation distal to injury: normal Complications: no immediate complications Mariia Kaye III, M.D. (Skip), M.P.H. 01/19/18 1529 [employer] documented in this encounter ED Notes Mariia Kaye III, M.D. (Skip), M.P.H. - 01/19/2018 2:43 PM CST SUBJECTIVE CHIEF COMPLAINT/REASON FOR VISIT Pain In Limb (Pt states she fell on the ice and landed on hand . Has right lateral hand pain intop fifith didgit ) HISTORY OF PRESENT ILLNESS Patient was walking outside with her computer when she slipped on the ice and landed on her hands beckie closed fist position. She has tenderness on her 4th and 5th digits on her right hand with movement. She has 1/10 pain at rest. There is no obvious deformity. No lacerations. No numbness or weakness. She is right handed. REVIEW OF SYSTEMS Musculoskeletal: Positive for extremity pain. Neurological: Negative for weakness and numbness. OBJECTIVE Initial Vitals [01/19/18 1429] Temperature Pulse Rate Heart Rate Resp Rate Blood Pressure SpO2 37 ??C 63 -- 20 148/82 97 % Pain Score 2 PHYSICAL EXAMINATION Neck: Normal range of motion. Neck supple. Cardiovascular: Capillary refill: takes less than 3 seconds, Musculoskeletal: She exhibits tenderness. She exhibits no deformity. Right hand: She exhibits decreased range of motion and bony tenderness. She exhibits normal capillary refill, no deformity and no laceration. Hands: Neurological: She is alert. She is not disoriented. She exhibits normal muscle tone. Skin: Skin is skin not cool. No cyanosis. Nursing note and vitals reviewed. ASSESSMENT/PLAN Impression and Plan Ddx includes fracture, dislocation, tendon rupture. Xr showed mid shaft angulated 5th MC fracture. Hand splinted and she was given a sling. F/U ortho.. Reviewed and summarized previous medical records including: Radiology images/report. Radiology results: Personally reviewed the radiology image. Radiology interpretation: Abnormal ED Course Final Diagnoses: as of Jan 19 1530 Fracture Fifth Metacarpal Base Nondisplaced Closed Initial Right Mariia Kaye III, M.D. (Skip), M.P.H. 01/19/18 1531 [employer] documented in this encounter Plan of Treatment Scheduled Referrals Name Type Priority Associated Diagnoses Order [facility] Orthopedic Surgery Outpatient Routine Fracture Fifth 1 Occur rences - Trauma hand/wrist Referral Metacarpal Base start ing 01/19/2018 surgical consult Nondisplaced Closed unti l 01/19/2021 (clinic) Initial Right documented as of this encounter Procedures Procedure Name Priority Date/Time Associated Comments Diagnosis SPLINT APPLICATION Routine 01/19/2018 3:25 Result s for this PM [employer] procedure are i n the results section. DX HAND RIGHT 3 RAD - Semiurgent 01/19/2018 2:48 Resul ts for this VIEWS (Fast; most ED PM [employer] procedure are in patients; some the results inpatients) section. documented in this encounter Results Splint Application (01/19/2018 3:25 PM [employer]) Narrative Mariia Kaye III, M.D. (Skip), M.P.H. - 01/19/2018 3:25 PM [employer] Mariia Hess) Michael EASON M.D., M.P.H. ? 01/19/2018 ??3:29 PM Splint Application Date/Time: 01/19/2018 3:28 PM Performed by: MARIIA KAYE III) Authorized by: MARIIA KAYE III) Pre-procedure details: ??Procedure type: application ?Performed by: ??Physician ??Indication: fracture ?Location: ??Hand ??Hand: ??Right hand ??Circulation distal to injury: capilla ry refill < 2 sec ?Movement distal to injury: normal ?Sensation distal to injury: normal ?? Sedation/Anesthesia (see MAR for exact d osages): ??Anesthesia method: ??None Procedure details: ??Immobilization: ??Sling and splint ??Splint type: ??Ulnar gutter ??Supplies used: ??Ortho-Glass, cotton padding and elastic bandage Post-procedure details: ??Procedure completed successfully: yes ?Pain: ??Unchanged ??Circulation distal to injury: capilla ry refill < 2 sec ?Movement distal to injury: normal ?Sensation distal to injury: normal ?Complications: no immediate complicat ions ?? Mariia Hess) Michael EASON M.D., M.P.H. PROCEDURE/MINOR SURGICAL ORDERABLES DX Hand Right 3 Views (01/19/2018 2:48 PM [employer]) Anatomical Region Laterality Modality Upper Extremity, Hand Right Digital Radiograph y Specimen (Source) Anatomical Collection Method Collection Time Re ceived Time Location / / Volume Laterality 01/19/2018 3:05 PM [employer] Impressions 01/19/2018 3:06 PM [employer] IMPRESSION: Oblique fracture involving the mid left fifth metacarpal shaft. No appreciable angulation or displacement. Surrounding soft tissue swelling. No evidence of intra-articular extension. N o bony erosive or osteolytic changes or evidence of opaque foreign body. Scatter ed minimal interphalangeal joint arthritic changes involving the right henriquez nd. Early degenerative arthritic changes triscaphe and first CMC joints. Narrative 01/19/2018 3:06 PM [employer] EXAM: DX HAND RIGHT 3 VIEWS Procedure Note Arthur Croft M.D. - 01/19/2018Formatt ing of this note might be different from the original. EXAM: DX HAND RIGHT 3 VIEWS IMPRESSION: Oblique fracture involving t he mid left fifth metacarpal shaft. No appreciable angulation or displacement. Surrounding soft tissue swelling. No evidence of intra-articular extension. N o bony erosive or osteolytic changes or evidence of opaque foreign body. Scatter ed minimal interphalangeal joint arthritic changes involving the right henriquez nd. Early degenerative arthritic changes triscaphe and first CMC joints. Mariia Kaye III, M.D. (Skip), M.P.H. IMG DIAGNOSTIC I MAGING PROCEDURES documented in this encounter Visit Diagnoses Diagnosis Fracture Fifth Metacarpal Base Nondispla ly Closed Initial Right - Primary documented in this encounter
--- OUTSIDE RECORDS SUMMARY | 2022-08-19 08:08 | XMS_ITS ---
:1960 Author Care Team Providers Name Role Phone DR. AMY HARPER Primary Care Provider [phone] DR. NICHOLAS MASTERSON Referring Provider [phone] Allergies Code Code System Name Reaction Severity Status Onset NKDA ? Medications Name Status Start Date Stop Date ? ? Fluarix Quad [id number] (PF) 60 mcg (15 mcg x 4)/0.5 mL Completed ? 09/10/2018 IM syringe gabapentin 100 mg capsule Active ? Not av ailable 2 tablets qhs levothyroxine 88 mcg tablet Active ? Not available once daily Problems Name Status Onset Date Source ? 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 Osteoarthritis Active 09/10/2018 ? Myofascial Pain Active 09/10/2018 ? Arthralgia of Temporomandibular Joint Active 09/10/2018 ? Procedures Date Name Performed by ? 04/30/2015 Other Information not avai lable 09/12/1997 Card Writer Hand Surgery Information not avai lable ? [place] Teeth Extraction Information not available 09/10/2018 XR, Orthopantogram [place] [address] [facility] [address] [place] [address] (Work Place) Results Lab Results Date Name Specimen Result Interpretation Description Value Range Status Address ? ? XR, Orthopantogram ? No observation ? ? ? [place]: [address] [facility] [place] [address] ? Oral Appliance ? No observation ? ? ? [place]: [address] Preparation* recorded. N icollet [facility] [address] [place] Past Encounters None recorded. Social History Tobacco Smoking Status Former Smoker Vaccine List Vaccine Type influenza, seasonal, injectable 08/30/2018 Plan of Care Reminders Provider Appointments None recorded. ? ? Lab None recorded. ? ? Referral None recorded. ? ? Procedures None recorded. ? ? Surgeries None recorded. ? ? Imaging None recorded. ? ? Vitals 09/24/2018 02:00PM SPLINT INSERT Height Weight BMI 5 ft 2 in 200 lbs 36.6 kg/m2 09/10/2018 12:30PM NEW PATIENT 62 Height Weight BMI 5 ft 2 in 200 lbs 36.6 kg/m2
--- OUTSIDE RECORDS SUMMARY | 2022-08-19 08:08 | XMS_ITS | Encounter Summary ---
:1960 Author Organization [facility] Address [address] [place] [address] Care Team Providers Name Role Phone Unavailable Primary Care Provider Unavailable Encounter Details Date Type Department Care Team Description 11/12/2011 Hospital Encounter HX [facility] ED Hank Thompson , DaniellaARoger [address] [place] [address] [phone] (Wo rk) Social History Tobacco Use Types Packs/Day Years Used Date Smoking Tobacco: Never Assessed Sex Assigned at Date Recorded Not on file documented as of this encounter Discharge Summaries iLsa Maharaj R.N. - 11/13/2011 4:46 AM CST ED Discharge Instructions [address] [address] Name: ASHLEIGH ACEVEDO Date of : 1960 12:00 PM Visit Date: 11/12/2011 7:38 PM Address: [address] [place] [phone] Primary Care Provider: PCP, ELSEWHERE IMPORTANT: [facility] in [place] would like to thank you for allowing us to assist you with your healthcare needs. The following includes patient education materials and informationregarding your injury/illness. Follow-Up Instructions: With: Address: When: ELSEWHERE PCP Within Tomorrow Comments: Call tomorrow to schedule further evaluation with Cardiology. Patient Education Materials: [id number] HEART PALPITATIONS Palpitations refers to the feeling that your heart is beating hard, fast or irregular. Some people describe it as pounding or skipped beats. Palpitations may occur in persons with heart disease, but can also occur in healthy persons. Heart-related causes: ?? Arrhythmia (a change from the heart's normal rhythm) ?? Disease of the heart valves [id number]-[id number] causes: ?? Certain medicines (such as asthma inhalers and decongestants) ?? Some herbal supplements, energy drinks and pills, and weight loss pills ?? Illegal stimulant drugs (such as cocaine, crank, methamphetamine, PCP) ?? Caffeine, alcohol and tobacco ?? Medical conditions such as thyroid disease, anemia, anxiety and panic disorder Sometimes the cause cannot be found. HOME CARE: 1. Avoid excess caffeine, alcohol, tobacco and any stimulant drugs. 2. Tell your doctor about any prescription or ilpg-kbu-ccozket or herbal medicines you take. FOLLOW UP with your doctor or as advised by our staff. GET PROMPT MEDICAL ATTENTION if any of the following occur together with palpitations: ?? Weakness, dizziness, light-headed or fainting ?? Chest pain or shortness of breath ?? Rapid heart rate (over 120 beats per minute, at rest) ?? Palpitations that lasts over 20 minutes ?? Weakness of an arm or leg or one side of the face Difficulty with speech or vision ?? [id number] [employer], [address] [place] [address]. All rights reserved. This information is not intended as a substitute for professional medical care. Always follow your healthcare professional's instructions. Discharge Prescriptions & Home Medications: Medication/Strength Dose Route Frequency Indications/Special Instructions/Comments Misc Prescription (Misc Prescription) Pt states she takes Premarin and Progesterone every other day. levothyroxine (Synthroid 75 mcg (0.075 mg) oral tablet) 0.075 mg Oral once a day Attention: If you have any medications at home that are not on this list, please contact your provider for clarification. Medication Reconciliation: Reconciliation is a process of identifying the most accurate list of all medications a patient is taking - including name, dosage, frequency, and route - and using this list to provide to the patient information about how to take those medications. ASHLEIGH ACEVEDO or ida has reviewed the home medications you have listed with us. Review the following instructions: You have NOT received any prescriptions and you have told us you are not currently taking any home medications You have NOT received any prescriptions. You have been provided a discharge medications list and you may CONTINUE taking your medications as previously prescribed by your regular providers. You have received the listed prescriptions and BEGIN all listed prescriptions as directed. Since you have listed no home medications, please check with your family doctor if you are taking any other medications. You have received the listed prescriptions and BEGIN all listed prescriptions as directed. Youhave been provided a discharge medications list and you may CONTINUE all home medications as previously prescribed by your regular providers. You have received the listed prescriptions and BEGIN all listed prescriptions as directed. Youhave been provided a discharge medications list. The following CHANGES have been made to your medication list; Otherwise, CONTINUE all home medications as previously prescribed by your regular provider. IMPORTANT: We examined and treated you today on an emergency basis only. This was not a substitute for, or an effort to provide, complete medical care. In most cases, you must let your doctor check youagain. Tell your doctor about any new or lasting problems. We cannot recognize and treat all injuries or illnesses in one Emergency Department visit. If you had special tests, such as EKG's or X- rays, we will review them again within 24 hours. We will call you if there are any new suggestions. Please follow the instructions above carefully. If you are a patient that is being discharged from the Emergency Department after receiving narcotics or other medications that may impair your judgment you may be a risk to yourself or others if you operate a motor vehicle. We recommend that you arrange a ride home with a responsible libertarian. I, ASHLEIGH ACEVEDO , or responsible libertarian have received this information and my questions have been answered. I have discussed any challenges I see with this plan with the nurse or physician. Patient Signature or Responsible Democrat/Relationship Date/Time Provider Signature Date/Time Medication Reconciliation: Reconciliation is a process of identifying the most accurate list of all medications a patient is taking - including name, dosage, frequency, and route - and using this list to provide to the patient information about how to take those medications. ASHLEIGH ACEVEDO or ida has reviewed the home medications you have listed with us. Review the following instructions: You have NOT received any prescriptions and you have told us you are not currently taking any home medications You have NOT received any prescriptions. You have been provided a discharge medications list and you may CONTINUE taking your medications as previously prescribed by your regular providers. You have received the listed prescriptions and BEGIN all listed prescriptions as directed. Since you have listed no home medications, please check with your family doctor if you are taking any other medications. You have received the listed prescriptions and BEGIN all listed prescriptions as directed. Youhave been provided a discharge medications list and you may CONTINUE all home medications as previously prescribed by your regular providers. You have received the listed prescriptions and BEGIN all listed prescriptions as directed. Youhave been provided a discharge medications list. The following CHANGES have been made to your medication list; Otherwise, CONTINUE all home medications as previously prescribed by your regular provider. IMPORTANT: We examined and treated you today on an emergency basis only. This was not a substitute for, or an effort to provide, complete medical care. In most cases, you must let your doctor check youagain. Tell your doctor about any new or lasting problems. We cannot recognize and treat all injuries or illnesses in one Emergency Department visit. If you had special tests, such as EKG's or X- rays, we will review them again within 24 hours. We will call you if there are any new suggestions. Please follow the instructions above carefully. If you are a patient that is being discharged from the Emergency Department after receiving narcotics or other medications that may impair your judgment you may be a risk to yourself or others if you operate a motor vehicle. We recommend that you arrange a ride home with a responsible libertarian. I, ASHLEIGH ACEVEDO , or responsible libertarian have received this information and my questions have been answered. I have discussed any challenges I see with this plan with the nurse or physician. Patient Signature or Responsible Democrat/Relationship Date/Time Provider Signature Date/Time This document has images extracted. Please consider using [employer] for all your patient education needs. Source: [employer] Document Id: [id number] ER PAINTER Lisa Maharaj, Carolyn. - 11/13/2011 4:46 AM CST ED Depart Summary [facility] Emergency Department Clinical Discharge Summary PERSON INFORMATION Name ASHLEIGH ACEVEDO Age 51 Years 1960 12:00 PM Sex Female Language PCP PCP, ELSEWHERE Marital Status N [id number] Visit Id Visit Reason Rapid heart beat; HEART RACING Specialty Enc Type Emergency Med Service Emergency Medicine Referred by Track Group [facility] ED Discharge 11/12/2011 11:00 PM Tracking Id [id number] Checkout 11/12/2011 11:00 PM Checkin 11/12/2011 7:38 PM Acuity Dispo Type * Discharged to Home or Self Care Arrival 11/12/2011 7:38 PM Reg Status LOS 000 03:22 Address: [address] [place] [phone] Comment: PROVIDER INFORMATION Provider Role Assigned Unassigned HANK THOMPSON ED Provider 11/12/2011 8:07 PM DIAGNOSIS Palpitations Comment: PATIENT EDUCATION INFORMATION Instructions: PALPITATIONS Follow up: With: Address: When: ELSEWHERE PCP Within Tomorrow Comments: Call tomorrow to schedule further evaluation with Cardiology. Source: [facility] [employer] Document Id: [id number] ER PAINTER documented in this encounter Medications at Time of Discharge Medication Sig Dispensed Refills Start Date End Date levothyroxine (SYNTHROID) Take 1 tablet by 0 10/30 75 mcg tablet mouth daily. Pt states she takes 80mg multivitamin tablet Take 1 tablet by 0 05/27/2011 mouth. documented as of this encounter Nursing Notes Lisa Maharaj R.N. - 11/13/2011 4:45 AM CST ED Pain Assessment ED Pain Assessment Entered On: 11/13/2011 4:45 BANNER PAINTER Performed On: 11/13/2011 4:45 BANNER PAINTER by LISA MAHARAJ RN Pain Assessment Pain Symptoms : No LISA MAHARAJ RN - 11/13/2011 4:45 BANNER PAINTER Source: [facility] [employer] Document Id: [id number] BANNER PAINTER!3 ER PAINTER Lisa Maharaj R.N. - 11/12/2011 7:48 PM CST ED Primary Assessment ED Primary Assessment Entered On: 11/12/2011 19:51 BANNER PAINTER Performed On: 11/12/2011 19:48 BANNER PAINTER by LISA MAHARAJ RN Reason For Visit Diagnoses(Active) Rapid heart beat Date: 11/12/2011 ; Diagnosis Type: Reason For Visit ; Confirmation: Complaint of ; Clinical Dx: Rapid heart beat ; Classification: Medical ; Clinical Service: Emergency medicine ; Code: PNED ; Probability: 0 ; Diagnosis Code: [id number] Triage Chief Complaint Description : 51 year old female admits with complaints of racing heart. Pt states she was in the middle of [place]mas program and felt heart race Has hx of same episode last May wore aholiter moniter but was negative. Denies racing heart when arriving in ER Information Given By : Patient Mode of Arrival ED : Private vehicle Track : Medical LISA MAHARAJ RN - 11/12/2011 19:48 BANNER PAINTER Pain Assessment Pain Symptoms : No LISA MAHARAJ RN - 11/12/2011 19:48 BANNER PAINTER ED Physician Notification Time ED Physician Notification Time : 11/12/2011 19:50 BANNER PAINTER LISA MAHARAJ RN - 11/12/2011 19:48 BANNER PAINTER KHADAR KHADAR Level 1 : No KHADAR Level 2 : No KHADAR Level 3 : Many LISA MAHARAJ RN - 11/12/2011 19:48 BANNER PAINTER DCP GENERIC CODE Tracking Group : [facility] ED LISA MAHARAJ RN - 11/12/2011 19:48 BANNER PAINTER Allergy Allergies (Active) NKA Estimated Onset Date: Unspecified ; Created By: LISA MAHARAJ RN; Reaction Status: Active ; Category: Drug ; Substance: NKA ; Type: Allergy ; Updated By: LISA MAHARAJ RN; Reviewed Date: 11/12/2011 19:50 BANNER PAINTER Immunizations Influenza : This year LISA MAHARAJ RN - 11/12/2011 19:48 BANNER PAINTER Respiratory Airway : Patent Respirations : Unlabored Respiratory Pattern : Regular LISA MAHARAJ RN - 11/12/2011 19:48 BANNER PAINTER Cardiovascular Heart Rhythm : Regular Skin Color : Normal for ethnicity Skin Description : Dry Skin Temperature : Warm LISA MAHARAJ RN - 11/12/2011 19:48 BANNER PAINTER Neurological Level of Consciousness : Alert Orientation : Oriented x 3 Characteristics of Speech : Appropriate for age LISA MAHARAJ RN - 11/12/2011 19:48 BANNER PAINTER ED Psychosocial Affect/Behavior : Calm Domestic Abuse Concerns : None LISA MAHARAJ RN - 11/12/2011 19:48 BANNER PAINTER Gastrointestinal Nutrition ED : Adequate LISA MAHARAJ RN - 11/12/2011 19:48 BANNER PAINTER Musculoskeletal Fall Prevention Education Provided : Yes LISA MAHARAJ RN - 11/12/2011 19:48 BANNER PAINTER Social Habits Tobacco Use/Currently Using : No Smoking Status : Former smoker LISA MAHARAJ RN - 11/12/2011 19:48 BANNER PAINTER Alcohol Use Grid Alcohol Use : Yes LISA MAHARAJ RN - 11/12/2011 19:48 BANNER PAINTER Source: [employer] Document Id: [id number] BANNER PAINTER!44 ER PAINTER documented in this encounter ED Notes Lisa Maharaj R.N. - 11/13/2011 11:00 PM CST ED Treatments and Procedures ED Treatments and Procedures Entered On: 11/13/2011 4:12 BANNER PAINTER Performed On: 11/13/2011 23:00 BANNER PAINTER by LISA MAHARAJ RN Cardiac Monitoring Monitoring Lead Business Partner : Discontinued LISA MAHARAJ RN - 11/13/2011 4:10 BANNER PAINTER Peripheral IV Peripheral IV Assess/Intervention Grid Peripheral IV #1 IV Activity : Start, Discontinue Number of Attempts : 6 Date of Insertion : 11/13/2011 BANNER PAINTER IV Site : Antecubital Laterality : Right LISA MAHARAJ RN - 11/13/2011 4:10 BANNER PAINTER Source: [employer] Document Id: [id number] BANNER PAINTER!11 ER PAINTER Lisa Maharaj R.N. - 11/13/2011 4:45 AM CST ED Disposition Summary ED Disposition Summary Entered On: 11/13/2011 4:45 BANNER PAINTER Performed On: 11/13/2011 4:45 BANNER PAINTER by LISA MAHARAJ RN ED Disposition Summary Accompanied By : Spouse LISA MAHARAJ RN - 11/13/2011 4:45 BANNER PAINTER Source: [employer] Document Id: [id number] BANNER PAINTER!3 ER PAINTER Hank Thompson, P.A.-Rosa M - 11/12/2011 8:08 PM CST Palpitations-Dysrhythmia *ED Document Contains Addenda Addendum by MARLI TELLEZ MD on 21 December 2011 1:15 BANNER PAINTER Reviewed and Rodrigo, Rodolfo Tellez MD Electronically Signed By: HANK THOMPSON On: 11/12/2011 11:23 PM Modified by and Electronically Signed by: HANK THOMPSON On: 11/12/2011 09:16 PM Modified by and Electronically Signed by: MARLI TELLEZ MD On: 12/21/2011 01:15 AM Palpitations-Dysrhythmia *ED Patient: ASHLEIGH ACEVEDO Age: 51 years Sex: Female : 1960 Author: HANK THOMPSON Attachments: None Associated Diagnosis: Palpitations Basic Information Time seen: Immediately upon arrival. History source: Patient, significant other. Arrival mode: Private vehicle. History limitation: None. Additional information:: Chief Complaint from Nursing Triage Note : Chief Complaint Description. 11/12/2011 19:48 BANNER PAINTER Chief Complaint Description 51 year old female admits with complaints of racingheart. Pt states she was in the middle of [employer] program and felt heart race Has hx of same episode last May wore [employer] moniter but was negative. Denies racing heart when arriving in ER History of Present Illness The patient presents with heart racing and palpitations. The onset was 11/12/2011 19:10:00 . The course/duration of symptoms is resolved: lasted 20 minute(s). Character of symptoms fast pounding. Thedegree at onset was moderate. The degree at present is none. Exacerbating factors consist of none. There are relieving factors including lying down, bearing down andStates symptoms usually improve and resolve with coughing or lying down.. Risk factors consist of none. Prior episodes: occasional (Thirdepisode in a year. Last was in April 2011.). Therapy today: none. Associated symptoms: chest pain (tender. Denies sharp pains or pressure.), dizziness and nausea. 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 States she was not stressed at the time though her s.o. told her it was likely due to stress.. Pt was evaluated for similar episode in April and wore a holter monitor for 2 months. States she did not have any episodes while wearing monitor. Has not followed up since.. Review of Systems Constitutional symptoms: Negative except as documented in HPI. Skin symptoms: Negative except as documented in HPI. Eye symptoms: Negative except as documented in HPI. ENMT symptoms: Negative except as documented in HPI. Respiratory symptoms: Negative except as documented in HPI. Cardiovascular symptoms: Palpitations. Gastrointestinal symptoms: Nausea (first time that she felt nauseous but thinks it's because she became nervous about it happening.), no vomiting. Genitourinary symptoms: Negative except as documented in HPI. Musculoskeletal symptoms: Negative except as documented in HPI. Neurologic symptoms: [place] light headed with this episode. Improved with lying down.. Psychiatric symptoms: Negative except as documented in HPI. Endocrine symptoms: Negative except as documented in HPI. Hematologic/Lymphatic symptoms: Negative except as documented in HPI. Allergy/immunologic symptoms: Negative except as documented in HPI. Additional review of systems information:H/o hypothyroid. Last TSH check about 1 year ago.. Health Status Allergies: . Allergic Reactions (All) NKA Medications: . Prescriptions and Home Medications levothyroxine (Synthroid 75 mcg (0.075 mg) oral tablet), 0.075 mg, 1 tab(s), PO, Daily Misc Prescription, Pt states she takes Premarin and Progesterone every other day. Past Medical/ Family/ Social History Medical history: Medical history, No active or resolved past medical history items have been selected or recorded.Hypothyroid. Surgical history: Surgical history. No active procedure history items have been selected or recorded. Family history: Family history. No family history items have been selected or recorded. Social history: Alcohol use: Occasionally, Tobacco use: Quit 25 years ago, Drug use: Denies. Physical Examination Vital signs: Vital Signs. 11/12/2011 20:09 BANNER PAINTER Apical Heart Rate 88 /min SpO2 99 % Systolic Blood Pressure 139 mmHg Diastolic Blood Pressure 83 mmHg BP Location Right upper 11/12/2011 19:45 BANNER PAINTER Temperature Core 36.5 C Apical Heart Rate 84 /min Respiratory Rate 20 /min SpO2 93 % LOW Systolic Blood Pressure 136 mmHg Diastolic Blood Pressure 88 mmHg BP Location Left upper General: Alert. no acute distress. Skin: Warm. dry. Head: Normocephalic Eye: Pupils are equal, round and reactive to light. extraocular movements are intact. Cardiovascular: Regular rate and rhythm. Normal peripheral perfusion. No edema. no Tachycardia. Respiratory: Lungs are clear to auscultation. respirations are non-labored. Chest wall: No tenderness Musculoskeletal: Normal ROM. normal strength. Gastrointestinal: Soft. Nontender. Neurological: Alert and oriented to person, place, time, and situation Psychiatric: Cooperative Medical Decision Making Documents reviewed:None available. OrdersLaunch Orders, Laboratory: DDimer (Order Processing): Stat, 11/12/2011 20:09 BANNER PAINTER, Once, Blood Thyroid Stimulating Hormone (Order Processing): Stat, 11/12/2011 20:09 BANNER PAINTER, Once, Blood Troponin T (Order Processing): Stat, 11/12/2011 20:09 BANNER PAINTER, Once, Blood CPK-mb (Order Processing): Stat, 11/12/2011 20:09 BANNER PAINTER, Once, Blood Basic Metabolic Panel (Order Processing): Stat, 11/12/2011 20:09 BANNER PAINTER, Once, Blood CBC (includes Auto Differential) (Order Processing): Stat, 11/12/2011 20:09 BANNER PAINTER, Once, Blood Patient Care: EKG (Rad) (Order Processing): 11/12/2011 20:11 BANNER PAINTER, Once Radiology: XR Chest 1 view (Order Processing): 11/12/2011 20:08 BANNER PAINTER, palpitations, Stat, Patient Bed, Once, 24Launch Orders, Radiology: CT Chest w/contrast PE Protocol - ED (Order Processing): 11/12/2011 21:05 BANNER PAINTER, heart racing. elevated ddimer. marine engineering consultant 0.89, Stat, Patient Bed, Once, 24Launch Orders. Pharmacy: ondansetron (Order Processing): 4 mg, PO, Once air sampling and monitoring:Within normal limits. Electrocardiogram:Time 11/12/2011 20:05:00, rate 86, normal sinus rhythm, no ectopy. Results review:Lab results : Lab View. 11/12/2011 20:30 BANNER PAINTER Hgb 11.7 g/dL LOW Hct 35.9 % LOW WBC 8.4 x10(9)/L RBC 4.12 x10(9)/L LOW MCV 87 fL RDW 13.1 % Platelet 295 x10(9)/L Neutro % 57.7 % Lymph % 34.6 % [place] % 5.6 % Eos % 1.9 % Baso % 0.2 % Neutro Absolute 4.84 10(9)/L Lymph Absolute 2.90 x10(9)/L [place] Absolute 0.47 x10(9)/L Eos Absolute 0.16 x10(9)/L Baso Absolute 0.02 x10(9)/L Differential? Auto D-Dimer 0.55 mg/L FEU HI Sodium Lvl 138.6 mM/L Potassium Lvl 3.1 mM/L LOW Chloride 103 mM/L CO2 24.1 mmol/L AGAP 12 mmol/L Glucose Lvl 104 mg/dL Creatinine 0.89 mg/dL EGFR >60 mL/min/1.73m2 HI EGFR >60 mL/min NA BUN 16 mg/dL BUN/Creat Ratio 17.0 Calcium Lvl 9.3 mg/dL CK-MB 3.0 ng/mL Troponin-T <0.01 ng/mL TSH 3.26 mcIU/mL Chest X-Ray:No acute disease process. Radiology results:Computed tomography, discussed with radiologist (Radiologist called and reported negative PE study.). Reexamination/ Reevaluation Resting comfortably. Denies pain or nausea. No recurrence of palpitations or heart racing. Impression and Plan Palpitations (Discharge, Emergency medicine, Medical) Discharge plan Condition: Improved, Stable. Dispositioned: To home. Patient was given the following educational materials: PALPITATIONS, PALPITATIONS. Follow up with: ELSEWHERE PCP Within Tomorrow Call tomorrow to schedule further evaluation with Cardiology.. Counseled: Patient, Family. Notes: Potassium supplement and enriched diet discussed.. Electronically Signed By: HANK THOMPSON On: 11/12/2011 11:23 PM Modified by and Electronically Signed by: HANK THOMPSON On: 11/12/2011 09:16 PM Source: [employer] Document Id: [id number] ER PAINTER Lisa Maharaj, R.N. - 11/12/2011 7:51 PM CST ED Treatments and Procedures ED Treatments and Procedures Entered On: 11/12/2011 19:52 BANNER PAINTER Performed On: 11/12/2011 19:51 BANNER PAINTER by LISA MAHARAJ herd tester Monitoring Monitoring Lead : I Monitoring Lead Business Partner : Initiated Atrial Rate : 92bpm Atrial Rhythm : Regular [place] Consistency : Consistent LISA MAHARAJ RN - 11/12/2011 19:51 BANNER PAINTER Source: [employer] Document Id: [id number] BANNER PAINTER!7 ER PAINTER documented in this encounter Miscellaneous Notes Miscellaneous - Lisa Maharaj R.N. - 11/13/2011 4:45 AM CST Valuables/Belongings Valuables/Belongings Entered On: 11/13/2011 4:45 BANNER PAINTER Performed On: 11/13/2011 4:45 BANNER PAINTER by LISA MAHARAJ RN Valuables/Belongings Belongings Sent Home With : ALL SENT WITH PATIENT LISA MAHARAJ RN - 11/13/2011 4:45 BANNER PAINTER Source: [employer] Document Id: [id number] BANNER PAINTER!3 ER PAINTER Miscellaneous - Lisa Maharaj R.N. - 11/12/2011 7:38 PM CST Facility Charge Ticket Facility Charge Ticket Entered On: 11/13/2011 4:46 BANNER PAINTER Performed On: 11/12/2011 19:38 BANNER PAINTER by LISA MAHARAJ RN Facility Charge TVL Level for Facility Charge Ticket : Level 5 Mode of Arrival ED : Private vehicle [facility] Mode of Arrival Interpreted : Standard [facility] Process Management : None [facility] Order Management : CT/MRI/Ultrasound, Xray - plain films, Lab tests 30 Minutes Critical Care : No [facility] Nursing Assessment : Triage and 3-5 nursing assessments [facility] Disposition : Discharge [facility] Total Points with Diagnosis Control : 16 [facility] Visit Level : 12217 Level 5 LISA MAHARAJ RN - 11/13/2011 4:45 BANNER PAINTER Source: [employer] Document Id: [id number] BANNER PAINTER!12 ER PAINTER documented in this encounter Plan of Treatment Not on filedocumented as of this encounter Visit Diagnoses Not on filedocumented in this encounter
--- OUTSIDE RECORDS SUMMARY | 2022-08-19 08:08 | XMS_ITS | Encounter Summary ---
:1960 Author Organization [facility] Address [address] [place] [address] Care Team Providers Name Role Phone Unavailable Primary Care Provider Unavailable Encounter Details Date Type Department Care Team Description 11/17/2011 Hospital Encounter [facility] Bran Jones M.D. Social History Tobacco Use Types Packs/Day Years [...]
--- OUTSIDE RECORDS SUMMARY | 2022-08-19 08:08 | XMS_ITS | Encounter Summary ---
:1960 Author Organization [facility] Address [address] [place] [address] Care Team Providers Name Role Phone Unavailable Primary Care Provider Unavailable Encounter Details Date Type Department Care Team Description 04/18/2011 Hospital Encounter HX [facility] Provider, [facility] Social History Tobacco Use Types Packs/Day Years Used Date Smoking Tobacco: Never Assessed Sex Assigned at Date Recorded Not on file documented as of this encounter Progress Notes Conversion, Historical Provider Ser - 04/18/2011 9:00 AM CDT [id number] Ashleigh is a 51 year old female who presents today complaining of hormones. First symptoms in early 40s did well on pills. Bothered by hot flashes. Using premarin and prog QOD Also bothered by joint pain. R shoulder 7 years ago, Bothered R knee. Hard to walk several years ago. Feels in elbows. Moves around--both shoulders, elbows, Knee. No facial rash or sores. No diarrhea, SOB, or CP. Very occasional heart palpitation. Mother w/ arthritis. Has acromegaly, tumor removed from a pituitary. On pain meds for 15 years. No other family members w/ arthritis. MD never checked pain. No menses for the 2 past years. Compliant w/ thyroid--last checked 1 y ago. Wakes up at night due to pain. Better when moving. BP 118/70 Pulse 74 Temp(Src) 98.5 ??F (36.9 ??C) (Temporal) Ht 1.588 m (5' 2.5) Wt 94.802 kg (209 lb) BMI 37.62 kg/m2 General appearance: healthy, alert, no distress and over weight Conjuctiva: NORMAL - no injection no discharge, no periorbital swelling. Ears: R TM - normal, L TM - normal Nose: normal Oropharynx: normal Neck:normal, supple and no adenopathy Lungs: normal and clear to auscultation Heart: normal and regular rate and rhythm Abdomen: no HSM, no mass Skin:a few papules consistent w/ acne. MS: R shoulder tender ant rotator cuff, full ROM, catches at times. No joint swelling or redness: TMJ, shoulder, neck, elbows, wrists, hands, knees. Lat tendon tender in L elbow. Nml gait. 1. Myalgia (729.1B) Erythrocyte sedimentation rate auto, Vitamin D Deficiency, Antinuclear antibody screen by EIA, Rheumatoid factor, Comprehensive metabolic panel, CBC with platelets differential, CRPinflammation 2. Other screening mammogram (V76.12) MAMMO SCREENING DIGITAL (BILAT) 3. Arthralgia (719.40B) Erythrocyte sedimentation rate auto, Vitamin D Deficiency, Antinuclear antibody screen by EIA, Rheumatoid factor, Comprehensive metabolic panel, CBC with platelets differential,CRP inflammation Hypothyroid--check TSH. [place] and [place]og [place]. obtain old records and will Gricelda Carnes M.D Source: [facility] Document Id: [id number] documented in this encounter Miscellaneous Notes Miscellaneous - Conversion, Historical Provider Ser - 04/18/2011 9:00 AM CDT [id number] Ashleigh Acevedo [address] [facility] [address] [facility] November 17, 2011 Dear Ashleigh Acevedo APPOINTMENT REMINDER: Our records indicates that it is time for you to be seen for your mammogram. You may call our office at [phone] or [phone] to schedule an appointment for a Mammogram. For your convenience, [facility] is now offering digital mammograms at our clinic on the first Thursday of every month. Please disregard this notice if you have already made an appointment. Sincerely, [facility] Source: [facility] Document Id: [id number] Miscellaneous - Conversion, Historical Provider Ser - 04/18/2011 9:00 AM CDT [id number] Asheligh Acevedo [address] [address] [facility] March 17, 2012 Dear Ashleigh Acevedo APPOINTMENT REMINDER: Our records indicates that it is time for you to have your annual mammogram completed. You may call our office at [phone] or [phone] to schedule an appointment for a Mammogram. For your convenience, our [facility] now offers portable digital mammograms on the first Thursdayof every month. Please disregard this notice if you have already made an appointment. Sincerely, [facility] Source: [facility] Document Id: [id number] Miscellaneous - Conversion, Historical Provider Ser - 04/18/2011 9:00 AM CDT [id number] Ashleigh Acevedo [address] [address] August 10, 2012 Dear Ashleigh Acevedo, APPOINTMENT REMINDER: Our record indicates that you are overdue for your mammogram. You may call our office at [phone] to schedule an appointment for a follow- up mammogram. Please disregard this notice if you have already made an appointment. [facility] [place] Source: [facility] Document Id: [id number] documented in this encounter Plan of Treatment Not on filedocumented as of this encounter Visit Diagnoses Not on filedocumented in this encounter
--- OUTSIDE RECORDS SUMMARY | 2022-08-19 08:08 | XMS_ITS | Encounter Summary ---
:1960 Author Organization [facility] Address [address] [place] [address] Care Team Providers Name Role Phone Unavailable Primary Care Provider Unavailable Reason for Visit Reason Comments Fracture Patient here for consult, Ri ght 5th Metacarpal fracture, DOI-01-19-, states fell on ice. Denies any pain . Outpatient (Routine) - Closed Specialty Diagnoses / Procedures Referred By Contact Refer red To Contact Orthopedic Surgery Diagnoses Fracture Fifth Metacarpal Base Nondisplaced Closed Initial Right Wai Rodriguez (Skip) [facility] [address] [place] [address] Referral ID Status Reason Start Date Expiration Date Visits Requ ested Visits Authorized [id number] Closed 01/19/2018 07/18/2018 1 1 Encounter Details Date Type Department Care Team Description 01/26/2018 Comprehensive Visit Department of Yara Rodriguez (Behzad) [facility] [address] [place] [address] Fracture Fifth Orthopedic Surgery Korina Rahman, MEDICAL CASE WORKER, C.N.P., D.N.P. [address] [place] [id number] Metacarpal Base in [place], Nondisplace d Closed [place] Initial Right [id number] [place] [address] Social History Tobacco Use Types Packs/Day Years Used Date Smoking Tobacco: Former Sex Assigned at Date Recorded Not on file documented as of this encounter Consult Notes Korina Rahman APRN, C.N.P., D.N.P. - 01/26/2018 10:30 AM CST Ashleigh is a pleasant 57-year-old who comes in today for a consultation of right hand 5th MCP fracture. This occurred on 01/19/2018 she was placed in a gutter splint in is here today for further evaluation and definitive care. She reports of minimal pain at this time. She has excellent sensation distal to the injury. Physical exam general patient appears nondistressed left hand 5th MC with tenderness to palpation inthe mid shaft area. She does have significant bruising and a moderate amount of swelling identified.She has excellent sensation distal to the injury. Diagnostic studies x-ray reviewed: IMPRESSION: Oblique fracture involving the mid right 5th metacarpal shaft. No appreciable angulation or displacement. Surrounding soft tissue swelling. No evidence of intra-articular extension. No bony erosive or osteolytic changes or evidence of opaque foreign body. Scattered minimal interphalangeal joint arthritic changes involving the right hand. Early degenerative arthritic changes triscaphe and first CMC joints. Patient has a mid shaft right 5th metacarpal fracture. After discussion with patient on treatment options at this point we did place her in a gutter cast. We will have her return in 3 weeks we will remove the cast at that time and reassess. If patient has minimal discomfort no x-rays will need to be repeated however if she continues to have some discomfort we would re-x-ray at that time. She will letus know she has any concerns or difficulties or new symptoms. 22 minutes was spent with patient of which 18 minutes was counseling and treatment are options regarding her right hand 5th metacarpal fracture. 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
--- OUTSIDE RECORDS SUMMARY | 2022-08-19 08:08 | XMS_ITS | Clinical Summary ---
:1960 Author Organization [facility] [place] [place] [address] Care Team Providers Name Role Phone Gus Alanis MD Primary Care Provider [phone] Allergies No known active allergies Medications Medication Sig Dispensed Refills Start Date End Date Status multivitamin (MVI) Take 1 tablet by 0 05/27/2011 Active tablet mouth once daily. aspirin enteric coated Take 1 tablet by 0 02/14/2013 Active (ECOTRIN) 325 mg tablet mouth once daily with a meal. Potassium 75 mg tablet Take by mouth. 0 02/14/2013 Active fluticasone, 50 mcg per 1 [place] once 1 Bottle 5 02/17/2013 Active actuation, nasal daily. (FLONASE) sprayIndications: Allergic rhinitis, cause unspecified PREMARIN 0.625 mg TAKE ONE TABLET BY 90 Tab 1 03/02/2013 Active tabletIndications: MOUTH EVERY DAY Symptomatic states associated with artificial menopause medroxyPROGESTERone Take 1 tablet by 90 tablet 0 11/28/2013 Active (PROVERA) 2.5 mg mouth once daily. tabletIndications: Symptomatic states associated with artificial menopause levothyroxine Take 1 tablet by 90 tablet 0 03/20/2014 Active (SYNTHROID) 88 mcg mouth once daily. tabletIndications: Unspecified hypothyroidism HYDROcodone-acetaminophe Take 1-2 tablets 60 tablet 0 05/30/20 15 Active n, 5-325 mg, (NORCO) per by mouth every 4 tabletIndications: hours if needed Follow-up examination, for Pain. Max following unspecified acetaminophen surgery dose: 4000mg in 24 hrs. gabapentin (NEURONTIN) Take 1 capsule by 0 5 Active 100 mg capsule mouth 2 times daily. Takes 2 capsules at night Active Problems Problem Noted Date Adenomatous colon polyp 04/27/2013 Overview: Colonoscopy 03/2013 polyp repeat in 5 yea rs Allergic rhinitis, cause unspecified 05/27/2011 Menopausal Syndrome (Hot Flashes) Unspecified hypothyroidism Immunizations Name Administration Dates Next Due Tdap 08/12/2010 Family History Medical History Relation Name Comments Psychiatric illness Brother 2 schizophreni a, bipolar Psychiatric illness Father schizphrenia Diabetes Maternal Grandfather Cancer-breast Mother Hypertension Mother Other Mother Acromegaly Cancer Paternal Grandmother brain tumor Relation Name Status Comments Brother 1 Alive schizophrenia Brother 2 Father Alive Maternal Grandfather Mother Alive acromegaly, Paternal Grandmother Social History Tobacco Use Types Packs/Day Years Used Date Former Smoker Quit: 11/30/18 87 Smokeless Tobacco: Never Used Tobacco Cessation: Counseling Given: Yes Alcohol Use Standard Drinks/Week Comments Yes 0 (1 standard drink = 0.6 oz pure alcoho l) socially Sex Assigned at Date Recorded Not on file Obstetrics History Last Filed Vital Signs Vital Sign Reading Time Taken Comments Blood Pressure 124/87 11/07/2015 9:34 AM INSTRUMENTATION SUPERVISOR 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 Pulse 73 11/07/2015 9:34 AM INSTRUMENTATION SUPERVISOR Temperature 36.7 ??C (98.1 ??F) 07/04/2015 10:19 AM CDT Respiratory Rate 18 08/13/2015 3:08 PM CDT Oxygen Saturation 97% 11/07/2015 9:34 AM INSTRUMENTATION SUPERVISOR Inhaled Oxygen Concentration - - Weight 96.4 kg (212 lb 9.6 oz) 11/07/2015 9:34 AM INSTRUMENTATION SUPERVISOR Height 158.8 cm (5' 2.5) 02/14/2013 9:37 AM CDT Body Mass Index 38.27 02/14/2013 9:37 AM CDT Plan of Treatment Health Maintenance Due Date Last Done Comments COVID-19 vaccine series (#1) 1960 Depression screening for age 12+ 1974 BMI (ht and wt on same day) for 1980 age 18+ Hepatitis C screening for age 0504/14/1980 18-79 Zoster (shingles) series for age 0504/14/2012 50+ (1 of 2) Mammogram for age 45-75 09/13/2013 09/13/2012, 08/12/2010, 07/03/2009, Additional history exists Lipids for age 45-75 02/14/2018 02/14/2013, 01/27/2012, 08/12/2010, Additional history exists Colonoscopy through age 75 04/22/2018 04/22/2013, 3 Tetanus booster 08/12/2020 08/12/2010 Pap test for age 21-65 06/08/2021 06/08/2018, 06/08/2018, 06/09/2014, Additional history exists Influenza for age 50-64 07/31/2022 Tdap Completed 08/12/2010 Results Not on filefrom Last 3 Months Insurance Payer Benefit Plan / Subscriber ID Effective Dates Phone Addre ss Type Group BLUE [employer]OSS BL[employer] OF [id number] 2016-Present [address] [place] [address] Care Teams Director Of Field Sales Relationship Specialty Start Date End Date Votel, Gus Bosch MD PCP - General 02/17/07 [address] [facility] [place] [id number]
--- OUTSIDE RECORDS SUMMARY | 2022-08-19 08:08 | XMS_ITS | Encounter Summary ---
:1960 Author Organization [facility] Address [address] [place] [address] Care Team Providers Name Role Phone Unavailable Primary Care Provider Unavailable Encounter Details Date Type Department Care Team Description 04/25/2011 Hospital Encounter [facility] Provider, [facility] Social History Tobacco Use Types Packs/Day Years Used Date Smoking Tobacco: Never Assessed Sex Assigned at Date Recorded Not on file documented as of this encounter Progress Notes Conversion, Historical Provider Ser - 04/25/2011 9:00 AM CDT [id number] Ashleigh Acevedo 51 year old present today for follow-up Reviewed labs.--mild elevation ESR and C reactive protein. Had a lump under her left arm that is now resolving. Has had lumps before. Has had routine paps and mammograms who have been normal, a few abl paps in the past. Xrays done BP 120/80 Pulse 70 Temp(Src) 98.6 ??F (37 ??C) (Temporal) Wt 93.441 kg (206 lb) 1. Knee pain (719.46D) X-ray rt shoulder 2 view, X-RAY RT KNEE 1 OR 2 VIEW * (Common), PHYSICAL THERAPY (RW/ZU) REFERRAL 2. Pain in shoulder (719.41H) X-ray rt shoulder 2 view, X-RAY RT KNEE 1 OR 2 VIEW * (Common), PHYSICAL THERAPY (RW/ZU) REFERRAL Try PT, await records. Vit D in the winter. Gricelda Carnes M.D Source: [facility] Document Id: [id number] documented in this encounter Miscellaneous Notes Miscellaneous - Conversion, Historical Provider Ser - 04/25/2011 9:00 AM CDT [id number] April 25, 2011 Ashleigh Acevedo [address] [place] [address] [facility] [id number] Dear Ms. Acevedo: I am writing to inform you the results of the xray tests did show some mild arthritis. I think physical therapy is the right next step. The results of your recent lab(s) were: Results for orders placed in visit on 04/25/11 X-RAY RT SHOULDER 2 VIEW Component Value Range IMAGECAST RESULT Value: Two views right shoulder April 25, 2011 9:45:00 AM HISTORY: PAIN IN SHOULDER,Not ,pain, COMPARISON: None. FINDINGS: Mild degenerative changes acromioclavicular joint. No acute fractures or soft tissue abnormalities. IMPRESSION: Mild AC degenerative changes. X-RAY RT KNEE 1 TO 2 VIEW Component Value Range IMAGECAST RESULT Value: Two views right knee April 25, 2011 9:50:00 AM HISTORY: KNEE PAIN,Not ,Pertinent Clinical Information: pain. Knee Views: Routine (AP and Lateral) Include standing view, COMPARISON: None. FINDINGS: Mild tricompartmental degenerative changes. No acute fractures identified. No soft tissue abnormalities. IMPRESSION: Mild tricompartmental degenerative changes. It was a pleasure to see you in the clinic. If you have any further questions or problems, please contact our office at [phone]. Sincerely, Gricelda Carnes M.D [facility] Source: [facility] Document Id: [id number] documented in this encounter Plan of Treatment Not on filedocumented as of this encounter Visit Diagnoses Not on filedocumented in this encounter
--- OUTSIDE RECORDS SUMMARY | 2022-08-19 08:08 | XMS_ITS | Encounter Summary ---
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 Source: [facility] Document Id: [id number] Miscellaneous - Conversion, Historical Provider Ser - 11/30/2010 12:00 AM COATER BRAKE LININGS [id number] 04/18/2011 - Records requested from [facility]. Source: [facility] Document Id: [id number] documented in this encounter Plan of Treatment Not on filedocumented as of this encounter Visit Diagnoses Not on filedocumented in this encounter
--- OUTSIDE RECORDS SUMMARY | 2022-08-19 08:08 | XMS_ITS | Encounter Summary ---
:[address] [facility] Address [address] [place] [address] Care Team Providers Name Role Phone Unavailable Primary Care Provider Unavailable Encounter Details Date Type Department Care Team Description 11/17/2011 Hospital Encounter HX NO MAPPING Pineda Blanchard M .D. Social History Tobacco Use Types Packs/Day Years [...] 05/27/2011 mouth. documented as of this encounter Consult Notes Pineda Blanchard M.D. - 11/17/2011 12:00 AM CST CARDCONOS IMPRESSION/REPORT/PLAN 1. Palpitations. 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 I talked to her about the use of a medication versus ablation. She was quite interested in ablation rather than taking lifelong medication. I gave her a prescription for metoprolol tartrate 25 milligrams twice a day. If she should have no further palpitations on the metoprolol and does not have side effects, then it does seem reasonable to continue with the medication. Alternatively, if she has continued tachycardia despite an increase in metoprolol dose, or does not tolerate the medication, then she should have an appointment made with the electrophysiology department for consideration of ablation. I will review an echocardiogram which is being done today. MARGIN CODE: P4 CHIEF COMPLAINT/REASON FOR VISIT Consultation requested by Dr. Rasheed for evaluation of palpitations. HISTORY OF PRESENT ILLNESS 1. Palpitations. Charlie Acevedo is a 51-year-old woman from [place] who came to the Emergency Department November 12 from her jainism in [place] complaining of rapid heart beating. She was sitting watching her children prepare for a [employer] program when she developed the sudden onset of rapid heart beating. She has had previous episodes and on one occasion her pulse was taken and heart rate was approximately 160. She attempted to do a couple of Valsalva maneuvers without success. Her was also at the jainism so she got in the back seat of his pickup truck, laid on her side, and headed for [facility] in [facility]. She converted while driving to the clinic. On arrival at the Emergency Department, she was in regular rhythm with a heart rate of 86. Electrocardiogram was unremarkable per the report. I did not review it. D-dimer was elevated and CTA was done for pulmonary emboli and it was negative. TSH was normal at 3.26. She takes Synthroid 0.075 milligrams. She gives a history of two previous episodes, one of which occurred 14 months ago. The second episode occurred in April of 2011. Neither episode was associated with exertion. Both lasted about 20 minutes and were not captured on an electrocardiogram. She has no history of cardiac disease. She has no record of a previous echocardiogram. Potassium was 3.1 on admission to the [place] [facility] November 12. CURRENT MEDICATIONS Current cardiac medications: Synthroid 0.075 mg. Premarin. Progesterone. SYSTEM REVIEW Per history of present illness. PAST MEDICAL/SURGICAL HISTORY Hypothyroidism treated with thyroxine. SOCIAL HISTORY She is accompanied by her . She has seven children of her own. Her youngest child is 14. 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 VITAL SIGNS BLOOD PRESSURE: 126/74 PULSE: 80 HEIGHT: 158 WEIGHT: 98 PHYSICAL EXAM GENERAL: Normal Body habitus. Well groomed. PSYCHIATRIC: Normal mood and affect. Oriented to person, place, and time. MUSCULOSKELETAL: Gait normal. EXTREMITIES: No clubbing or cyanosis. EYES: No xanthelasma or conjunctivitis. ENT: No oral mucosa pallor or cyanosis. HEART: Normal cardiac palpation. Normal first and second heart sounds. No murmurs, gallops, or rubs. Jugular venous pressure and pulsation normal. No lower extremity edema. VESSELS: No carotid bruits. Normal pedal pulses. LUNGS: Normal respiratory effort and air movement. Clear to auscultation. ABDOMEN: Normal sized liver and spleen. No abdominal masses or tenderness. SKIN: No stasis dermatitis or ulceration. Pineda Blanchard M.D. /nievse CC: Marley Rasheed M.D. Electronically Signed By: PINEDA BLANCHARD MD On: 12/03/2011 03:23 PM Modified by and Electronically Signed by: PINEDA BLANCHARD MD On: 12/03/2011 03:23 PM Source: [facility] MHSDOLBEYNONRADSYS Document Id: [id number] PRESIDENT SAFETY documented in this encounter Nursing Notes Charlie Neumann R.N. - 11/18/2011 10:39 AM CST echo results Patient telephoned with results of echocardiogram done yesterday. Email sent to Dr. Blanchard via [facility] that report is available for him to review. Electronically Signed By: CHARLIE NEUMANN RN On: 11/18/2011 10:40 AM Source: [facility] POWERCHART Document Id: [id number] PRESIDENT SAFETY documented in this encounter Miscellaneous Notes Miscellaneous - Charlie Neumann R.N. - 11/17/2011 11:40 AM CST Adult Flight Kitchen Manager Intake/History Adult Flight Kitchen Manager Intake/History Entered On: 11/17/2011 11:50 VICE PRESIDENT SAFETY Performed On: 11/17/2011 11:40 VICE PRESIDENT SAFETY by CHARLIE NEUMANN gas meter installer Chief Complaint : Referred from ER visit on 11-12. Had palpitations. Onset of Symptoms : 3'rd episode of tachycardia.within past year. Lasts 20 minutes Had a holter May2011. Apical Heart Rate : 80/min Systolic Blood Pressure : 126mmHg Diastolic Blood Pressure : 74mmHg NIBP Mean : 91mmHg Blood Pressure Cuff Size : Large Height : 158cm(Converted to: 5ft 2inch(es), 62.20inch(es)) Actual Weight : 98kg(Converted to: 216lb 1oz) Dosing Weight Clinic : 98.00kg Clinic BSA : 2.07 Body Mass Index : 39.26kg/m2 CHARLIE NEUMANN RN - 11/17/2011 11:40 VICE PRESIDENT SAFETY General Info Information Given By : Patient, Spouse Preferred Communication Mode : Verbal Languages : Icelandic CHARLIE NEUMANN RN - 11/17/2011 11:40 VICE PRESIDENT SAFETY Subjective Pain Symptoms : No CHARLIE NEUMANN RN - 11/17/2011 11:40 VICE PRESIDENT SAFETY Dependent Habits Tobacco Use/Currently Using : No Smoking Status : Former smoker CHARLIE NEUMANN RN - 11/17/2011 11:40 VICE PRESIDENT SAFETY Allergy Allergies (Active) NKA Estimated Onset Date: Unspecified ; Created By: ELIER MAHARAJ RN; Reaction Status: Active ; Category: Drug ; Substance: NKA ; Type: Allergy ; Updated By: ELIER MAHARAJ RN; Reviewed Date: 11/17/2011 11:40 VICE PRESIDENT SAFETY Health History I Ocular Past Medical History Grid Cataract : no Glaucoma : no CHARLIE NEUMANN RN - 11/17/2011 11:40 VICE PRESIDENT SAFETY Cardiovascular Past Medical History Grid Aortic Aneurysm : no Chest Pain/Angina : Self, after episodes of tachycardia Dizziness : Self, with nausea Fainting : no Heart Attack : no Heart Disease : no Heart Failure : no High Blood Pressure : no High Cholesterol : no Irregular Heartbeat/Palpitations : Self CHARLIE NEUMANN RN - 11/17/2011 11:40 VICE PRESIDENT SAFETY Respiratory Past Medical History Grid Asthma : no Sleep Apnea : no CHARLIE NEUMANN RN - 11/17/2011 11:40 VICE PRESIDENT SAFETY Gastrointestinal Past Medical Hx Grid Reflux Disease : Self CHARLIE NEUMANN RN - 11/17/2011 11:40 VICE PRESIDENT SAFETY Health History II Endocrine/Metabolic Past Med Hx Grid Diabetes : no Thyroid Disease : Self CHARLIE NEUMANN RN - 11/17/2011 11:40 VICE PRESIDENT SAFETY Neurological Past Medical History Grid Stroke : Grandparents CHARLIE NEUMANN RN - 11/17/2011 11:40 VICE PRESIDENT SAFETY [facility] Document Id: [id number] VICE PRESIDENT SAFETY!51 PRESIDENT SAFETY documented in this encounter Plan of Treatment Not on filedocumented as of this encounter Visit Diagnoses Not on filedocumented in this encounter
[2022-08-19 10:59] LABS: Cholesterol* 208 mg/dL (90-199); Glucose* 102 mg/dL (60-115); HDL Cholesterol* 71 mg/dL (>=50); LDL Cholesterol Calculated 124 mg/dL (<100); Triglycerides* 66 mg/dL (40-149)
== END 2022-08-19 08:05 | disposition home or self-care (01) ==
PROVIDERS: PCP Internal Medicine; Visit Provider Internal Medicine
DX: Z01.419 Encounter for gynecological examination (general) (routine) without abnormal findings (principal); R53.83 Other fatigue; E03.9 Hypothyroidism, unspecified; E78.5 Hyperlipidemia, unspecified; Z13.1 Encounter for screening for diabetes mellitus
CPT/HCPCS: 80061; 82728; 82947; 84443

== ENCOUNTER 2023-06-25 10:01 | Outpatient (CLI) | payer BC, SELFPAY ==
--- NOTE | 2023-06-25 08:43 | W.ANESCHARGE ---
Anesthesia Charges Start Date/Time Anesthesia Start Date: 06/25/23 Anesthesia Start Time: 10:38 Stop Date/Time Anesthesia Stop Date: 06/25/23 Anesthesia Stop Time: 11:30
--- NOTE | 2023-06-25 11:31 | W.ANESCHARGE ---
Anesthesia Charges Start Date/Time Anesthesia Start Date: 06/25/23 Anesthesia Start Time: 10:38 Stop Date/Time Anesthesia Stop Date: 06/25/23 Anesthesia Stop Time: 11:30
== END 2023-06-25 10:02 | disposition home or self-care (01) ==
LOC: OP CLINIC 10:02
PROVIDERS: PCP Internal Medicine; Visit Provider Surgery
DX: Z86.010 Personal history of colon polyps (principal); Z12.11 Encounter for screening for malignant neoplasm of colon; K63.5 Polyp of colon
CPT/HCPCS: 45385; 811; 88305; J2704

== ENCOUNTER 2023-09-01 11:51 | Outpatient (CLI) | payer BC, SELFPAY | END 2023-09-01 11:52 | disposition home or self-care (01) | PROVIDERS: PCP Internal Medicine; Visit Provider Internal Medicine | DX: Z00.00 Encounter for general adult medical examination without abnormal findings (principal); E03.9 Hypothyroidism, unspecified; E66.9 Obesity, unspecified; E78.5 Hyperlipidemia, unspecified | CPT/HCPCS: 80061; 84443 ==

== ENCOUNTER 2023-09-21 12:51 | Outpatient (CLI) | payer BC, SELFPAY ==
--- NOTE | 2023-09-21 13:40 | CRLHL7_ITS ---
For Patients: As a result of the Cures Act, medical imaging exams and procedure reports are released immediately into your electronic medical record. You may view this report before your referring provider. If you have questions, please contact your health care provider. BILATERAL SCREENING MAMMOGRAM WITH COMPUTER-AIDED DETECTION AND TOMOSYNTHESIS TECHNIQUE: CC and MLO views were obtained. These mammographic images have been obtained using full-field digital technique. These mammographic images were interpreted with the benefit of computer-aided detection. Breast Tomosynthesis was used in this interpretation. COMPARISON FILM: 07/21/22, 07/16/21, 07/16/20. FINDINGS: There are scattered areas of fibroglandular density IMPRESSION: There is no radiographic evidence for malignancy. ASSESSMENT: BI-RADS Category 1: Negative RECOMMENDATION: Routine screening mammogram in 1 year. A lay language report of this examination will be provided to the patient. Stoney Morales M.D. Diagnostic Radiologist [email or web address] VALERIO/oral R: 09/22/2023: Transcribed: 1:40 p.m. NIRALI/Dictated by: Stoney Morales MD @ 09/22/2023 12:29:00 PM (Electronically Signed)
== END 2023-09-21 12:52 | disposition home or self-care (01) ==
LOC: MAMMO 12:53
PROVIDERS: PCP Internal Medicine; Visit Provider Internal Medicine
DX: Z12.31 Encounter for screening mammogram for malignant neoplasm of breast (principal)
CPT/HCPCS: 77063; 77067

== ENCOUNTER 2024-04-30 13:54 | Emergency (ER) | payer OTHER, SELFPAY ==
[2024-04-30 14:05] VITALS: BP 145/80; PULSE 68; RESP 18; TEMP 36.7; O2SAT 96; BMI 36.6
--- NOTE | 2024-04-30 14:16 | CRLHL7_ITS ---
For Patients: As a result of the Century Cures Act, medical imaging exams and procedure reports are released immediately into your electronic medical record. You may view this report before your referring provider. If you have questions, please contact your health care provider. CLINICAL HISTORY: Swelling right lower extremity TECHNIQUE: A compression venous ultrasound exam was performed of the right lower extremity using johns-scale imaging, color Doppler and spectral Doppler analysis. FINDINGS: Sonographic imaging of the right lower extremity demonstrates normal compressibility and color Doppler venous blood flow within the common femoral vein, deep femoral vein, and the proximal greater saphenous vein. Within the thigh, the femoral vein is patent and compressible. At a lower level, the popliteal and posterior tibial veins also show normal compressibility and color Doppler venous blood flow. Limited imaging of the contralateral groin demonstrates a normal spectral waveform and color Doppler venous blood flow within the left common femoral vein. A 4.4 x 4.1 x 0.9 centimeter complex fluid collection in the right posterior calf [id number]; rule out dissecting popliteal cyst. IMPRESSION: Normal venous ultrasound exam. No evidence of deep vein thrombosis within the right lower extremity. Rule out popliteal cyst with dissection into the upper calf Dictated by Leonardo Espinal MD @ 04/30/2024 4:04:55 PM (Electronically Signed)
--- OUTSIDE RECORDS SUMMARY | 2024-04-30 15:48 | XMS_ITS | Clinical Summary ---
Author Organization [facility] Address [place], [place] [address] Care Team Providers Care Matte Cutter Name Role Phone VotelGus MD Primary Care Provider + Allergies No known active allergies Medications Medication Sig Dispensed Refills Start Date End Date Status multivitamin (MVI) tablet Take 1 tablet by mouth once daily. 0 05/27/2011 Active aspirin enteric coated (ECOTRIN) 325 mg tablet Take 1 tablet by mouth once daily with a meal. 0 02/14/2013 Active Potassium 75 mg tablet Take by mouth. 0 02/14/2013 Active fluticasone, 50 mcg per actuation, nasal (FLONASE) sprayIndications:All ergic rhinitis, cause unspecified 1 Abell once daily. 1 Bottle 5 02/17/2013 Active PREMARIN 0.625 mg tabletIndications:Sy mptomatic states associated with artificial menopause TAKE ONE TABLET BY MOUTH EVERY DAY 90 Tab 1 03/02/2013 Active medroxyPROGESTERone (PROVERA) 2.5 mg tabletIndications:Sy mptomatic states associated with artificial menopause Take 1 tablet by mouth once daily. 90 tablet 0 11/28/2013 Active levothyroxine (SYNTHROID) 88 mcg tabletIndications:Un specified hypothyroidism Take 1 tablet by mouth once daily. 90 tablet 0 03/20/2014 Active HYDROcodone-acetamin ophen, 5-325 mg, (NORCO) per tabletIndications:Fo llow-up examination, following unspecified surgery Take 1-2 tablets by mouth every 4 hours if needed for Pain. Max acetaminophen dose: 4000mg in 24 hrs. 60 tablet 0 05/30/2015 Active gabapentin (NEURONTIN) 100 mg capsule Take 1 capsule by mouth 2 times daily. Takes 2 capsules at night 0 07/04/2015 Active Active Problems Problem Noted Date Diagnosed Date Adenomatous colon polyp 04/27/2013 Overview: Colonoscopy 03/2013 polyp repeat in 5 years Allergic rhinitis, cause unspecified 05/27/2011 Menopausal Syndrome (Hot Flashes) Unspecified hypothyroidism Immunizations Name Administration Dates Next Due Tdap 08/12/2010 Family History Medical History Relation Name Comments Psychiatric illness Brother 2 schizoph bernabe, bipolar Psychiatric illness Father schizphr enia Diabetes Maternal Grandfather Cancer-breast Mother Hypertension Mother Other Mother Acromegaly Cancer Paternal Grandmother brain t umor Relation Name Status Comments Brother 1 Alive schizophrenia Brother 2 Father Alive Maternal Grandfather Mother Alive acromegaly, Paternal Grandmother Social History Tobacco Use Types Packs/Day Years Used Date Smoking Tobacco: Former Cigarettes Q uit: 11/30/1986 Smokeless Tobacco: Never Tobacco Cessation:Counseling Given: Yes Alcohol Use Standard Drinks/Week Comments Yes 0 (1 standard drink = 0.6 oz pur e alcohol) socially Sex and Gender Information Value Date Recorded Sex Assigned at Not on file Gender Identity Not on file Sexual Orientation Not on file Obstetrics History Last Filed Vital Signs Vital Sign Reading Time Taken Comments Blood Pressure 124/87 11/07/2015 9:34 AM KELP GATHERER tow er Pulse 73 11/07/2015 9:34 AM KELP GATHERER Temperature 36.7 ??C (98.1 ??F) 07/04/2015 10:19 AM C DT Respiratory Rate 18 08/13/2015 3:08 PM CDT Oxygen Saturation 97% 11/07/2015 9:34 AM KELP GATHERER Inhaled Oxygen Concentration - - Weight 96.4 kg (212 lb 9.6 oz) 11/07/2015 9:34 A M KELP GATHERER Height 158.8 cm (5' 2.5) 02/14/2013 9:37 AM CDT Body Mass Index 38.27 02/14/2013 9:37 AM CDT Plan of Treatment Health Maintenance Due Date Last Done Comments Depression screening for age 12+ 1974 HIV for age 15-65 1977 BMI (ht and wt on same day) for age 18+ 1980 Hepatitis C screening for age 18-79 1980 Zoster (shingles) series for age 50+ (1 of 2) 2012 Mammogram for age 45-75 09/13/2013 09/13/20 12, 08/12/2010, 07/03/2009, Additional history exists Lipids for age 45-75 02/14/2018 02/14/2013, 01/27/2012, 08/12/2010, Additional history exists Colonoscopy through age 75 04/22/2018 04/22/2013, Tetanus booster 08/12/2020 08/12/2010 COVID-19 vaccine series ( season) 2023 Influenza for age 50-64 07/31/2024 Pap test for age 21-65 09/01/2026 3, 09/01/2023, 06/08/2018, Additional history exists Tdap Completed 08/12/2010 Pneumococcal series for age 6-64 Aged Out No longer eligible based on patient's age to complete this topic Procedures Procedure Name Priority Date/Time Associated Diagnosis Comments HPV THIN PREP Routine 09/01/2023 8:30 AM CDT LIPID PANEL W REFLEX MEASURED LDL Routine 02/14/2013 9:21 AM CDT Routine physical examination XR MAMMO BILAT SCREEN FFDM (IA) Routine 09/13/2012 2:53 PM CDT Other screening mammogram from Last 3 Months or Most Recently Relevant to Health Maintenance Results * HPV HIGH RISK (09/01/2023 8:30 AM CDT) TYPE 16 Negative Negative 09/04/2023 1:16 PM CDT [facility] TYPE 18 Negative Negative 09/04/2023 1:16 PM CDT [facility] OTHER HIGH RISK TYPES Negative Negative 09/04/2023 1:16 PM CDT [facility] Other (Cervical) 09/01/2023 8:30 AM CDT 09/01/2023 5:21 PM CDT Narrative [facility] - 09/04/2023 1:16 PM CDT HPV types 16, 18, 31, 33, 35, 39, 45, 51, 52, 56, 58, 59, 66 and 68 DNA were undetectable or below the pre-set threshold. Methodology: Zayda Cruzito 4800 HPV Test Alie Maya MD MICROBIOLOGY [facility] [address] [place] [address], * (ABNORMAL) LIPID PANEL W REFLEX MEASURED LDL (02/14/2013 9:21 AM CDT) CHOLESTEROL,TOTAL 209(H) 100 - 199 mg/dL 02/14/2013 9:47 AM CDT [facility] TRIGLYCERIDES 76 <150 mg/dL 02/14/2013 9:47 AM CDT [facility] HDL CHOLESTEROL 68 >40 mg/dL 3 9:47 AM CDT [facility] NON-HDL CHOLESTEROL 141 <145 mg/dl 02/14/2013 9:47 AM T [facility] CHOL/HDL RATIO 3.07 <4.50 02/14/2013 9:47 AM T [facility] LDL CHOLESTEROL 126 <=130 mg/dL 02/14/2013 9:47 AM T [facility] PATIENT STATUS FASTING 02/14/2013 9:47 AM T [facility] Blood specimen (specimen) BLOOD SPECIMEN / Unknown 02/14/2013 9:21 AM CDT 02/14/2013 9:21 AM CDT Gus Alanis MD CHEMISTRY Performing Organization Address City/[facility]/ZIP Co de Phone Number [facility] [address] [place] [address] * XR MAMMO BILAT SCREEN FFDM (09/13/2012 2:53 PM CDT) Anatomical Region Laterality Modality BREASTS, Breast Left, Breast Right Bilateral Mammography Impressions 09/14/2012 12:15 PM CDT ??There is no radiographic evidence for malignancy. ??Recommend annual mammograms. A lay language report of this examination will be provided to the patient. MAMMOGRAM ASSESSMENT: ??ACR 1 Negative Narrative 09/14/2012 12:15 PM CDT XR MAMMO BILAT SCREEN FFDM [G0202.0] CLINICAL HISTORY: ??This is an asymptomatic 52 y.o. patient. INDICATION FOR EXAM: Mammogram Screening. TECHNIQUE: CC & MLO views were obtained. ??This digital study was evaluated with the assistance of Computer-Aided Detection. ?? COMPARISON FILM: Yes 08/12/10 [facility] 07/03/09 [facility] FINDINGS: ??Mammographically, the breast tissue has scattered fibroglandular densities (approximately 25% - 50% glandular). ??There are no dominant masses, suspicious micro calcifications or areas of architectural distortion. Procedure Note Rl Samuels MD - 09/14/2012 XR MAMMO BILAT SCREEN FFDM [G0202.0] CLINICAL HISTORY: This is an asymptomatic 52 y.o. patient. INDICATION FOR EXAM: Mammogram Screening. TECHNIQUE: CC & MLO views were obtained. This digital study was evaluatedwith the assistance of Computer-Aided Detection. COMPARISON FILM: Yes 08/12/10 [facility] 07/03/09 [facility] FINDINGS: Mammographically, the breast tissue has scatteredfibroglandular densities (approximately 25% - 50% glandular). There areno dominant masses, suspicious micro calcifications or areas ofarchitectural distortion. IMPRESSION: There is no radiographic evidence for malignancy. Recommendannual mammograms. A lay language report of this examination will be provided to the patient. MAMMOGRAM ASSESSMENT: ACR 1 Negative Gus Alanis MD MAMMO from Last 3 Months or Most Recently Relevant to Health Maintenance Care Teams Matte Cutter Relationship Specialty Start Date End Date Gus Alanis MD [address] [place] [address] PCP - General 02/17/07
--- OUTSIDE RECORDS SUMMARY | 2024-04-30 15:48 | XMS_ITS | Clinical Summary ---
Author Organization [facility] Address [address] [place] [address] Care Team Providers Care Admissions Officer Name Role Phone Unavailable Primary Care Provider Unavailabl e Source Comments Patient records contain information from all sites at [facility]. For routine questions regarding patient records, call [phone] during business hours, M-F 8:00 AM - 5:00 PM Central Time. Record requests for emergency care only can be directed to [phone] at any time.[facility] Allergies Active Allergy Reactions Criticality Noted Date Comments No Known Allergies Other (see comments) 011 Medications Medication Sig Dispensed Refills Start Date End Date Status levothyroxine (SYNTHROID) 75 mcg tablet Take 1 tablet by mouth daily. Pt states she takes 80mg 11/12/2011 Active gabapentin (for_NEURONTIN) 100 mg capsule Take 200 mg by mouth at bedtime. Active aspirin [address] tablet Take 325 mg by mouth. 02/14/2013 Act ismael fluticasone propionate (FLONASE) 50 mcg/actuation nasal spray 1 spray. 02/17/2013 Active gabapentin (NEURONTIN) 100 mg capsule gabapentin 100 mg capsule 2 tablets qhs Active levothyroxine (SYNTHROID, LEVOTHROID) 88 mcg tablet levothyroxine 88 mcg tablet once daily Active multivitamin tablet Take 1 tablet by mouth. 05/27/2011 Active omeprazole (PriLOSEC) [address] capsule Take 20 mg by mouth daily. 10/17/202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 Osteoarthritis 09/10/2018 Myofascial Pain Syndrome 09/10/2018 Hypothyroidism 02/25/2014 Overview: Hypothyroidism Polyp Colon Adenomatous 04/27/2013 Overview: Overview: Colonoscopy 03/2013 polyp repeat in 5 years Palpitations 12/03/2011 Rhinitis Allergic 05/27/2011 Immunizations Name Administration Dates Next Due Influenza (IM) Preservative Free 10/15/2013,05/2007 Influenza TIV (IM) 08/30/2018 Influenza, Seasonal, Injectable 10/09/2011 RZV (SHINGRIX) 01/26/2020 Td Preservative Free (TENIVA C, DECAVAC) 11/12/2020 Tdap 08/12/2010 influenza vaccine quad (FLUZONE/FLUARIX) (6 months and older)(PF) 08/03/2017,08/23/2016,08/26/2015,2013 Family History Medical History Relation Name Comments Hyperlipidemia Mother Hypertension Mother Relation Name Status Comments Mother Social History Tobacco Use Types Packs/Day Years Used Date Smoking Tobacco: Former Smokeless Tobacco: Never Alcohol Use Standard Drinks/Week Comments Yes 0 (1 standard drink = 0.6 oz pur e alcohol) Nutrition Answer Date Recorded Nutrition: EVOO Fat Source Unknown 01/31 Nutrition: Servings of Fruits/Vegetables per Day Not on file 01/31/2021 Dental Answer Date Recorded Dental: Regular Dentist Unknown 02/01/20 21 Sex and Gender Information Value Date Recorded Sex Assigned at Not on file Gender Identity Not on file Sexual Orientation Not on file Last Filed Vital Signs Vital Sign Reading Time Taken Comments Blood Pressure 156/95 11/12/2020 2:02 PM TRAFFIC LAW ATTORNEY Pulse 73 11/12/2020 2:02 PM TRAFFIC LAW ATTORNEY Temperature 36.3 ??C (97.3 ??F) 11/12/2020 2:02 PM CS T Respiratory Rate 20 11/12/2020 2:02 PM TRAFFIC LAW ATTORNEY Oxygen Saturation 100% 11/12/2020 2:02 PM TRAFFIC LAW ATTORNEY Inhaled Oxygen Concentration - - Weight 93.4 kg (205 lb 14.6 oz) 024 10:06 AM TRAFFIC LAW ATTORNEY Height 159 cm (5' 2.6) 12/23/2023 10:0 6 AM TRAFFIC LAW ATTORNEY Body Mass Index 36.95 12/23/2023 10:06 AM TRAFFIC LAW ATTORNEY Plan of Treatment Health Maintenance Due Date Last Done Comments CT Colonography 1962 Cologuard 1962 Colonoscopy 1962 Colorectal Cancer Surveillance 1962 HIV Screening 1962 Hepatitis C Screening 1962 Lipid (Cholesterol) Screening 1962 Mammogram 1962 Thyroid Stimulating Hormone (TSH) test for thyroid function 02/12/2020 02/11/2019 Fasting Glucose for Diabetes Screening 02/11/2022 02/11/2019 COVID-19 Vaccine (2022-24 season) 2023 Influenza Vaccine (#1) 2023 0, 10/25/2019, 08/30/2018, Additional history exists Depression Screening (Annual PHQ-2) 11/30/2023 Cervical Cancer Screening 09/01/2026 09/01/2023, 08/2018 DTaP,Tdap,and Td Vaccines (4 - Td or Tdap) 11/12/2030 11/12/2020, 07/12/2020, 08/12/2010 Zoster Vaccines Completed 01/26/2020, 09/02/2019 Pneumococcal vaccine (0-64 years) Aged Out No longer eligible based on patient's age to complete this topic Procedures Procedure Name Priority Date/Time Associated Diagnosis Comments BASIC METABOLIC PANEL, S/P STAT 02/11/2019 5:49 PM CDT THYROID-STIMULATING HORMONE-SENSITIVE (S-TSH) STAT 02/11/2019 5:49 PM CDT from Last 3 Months or Most Recently Relevant to Health Maintenance Results * S-TSH (Thyroid-Stimulating Hormone - Sensitive) (02/11/2019 5:49 PM CDT) TSH, Sensitive 2.3 0.3 - 4.2 mIU/L 02/11/2019 6:20 PM CDT [facility] [employer] [facility] Comment: Biotin has been identified by the public health doctor as a potential interfering substance. ??Higher concentrations of biotin may be found in multivitamins, hair/nail supplements, and workout supplements. ??If the result does not match clinical observations, repeat testing after patient refrains from the use of supplements for at least 12 hours. Blood (Blood, Venous) 02/11/2019 5:49 PM CDT 02/11/2019 5:51 PM CDT Wade Trevino III, M.D. LAB BLOOD ADD-ON [facility] [address] [id number] * (ABNORMAL) BMP (Basic Metabolic Panel) (02/11/2019 5:49 PM CDT) Potassium, P 3.4(L) 3.6 - 5.2 mmol/L 02/11/2019 6:11 PM CDT [facility] Sodium, P 141 135 - 145 mmol/L 02/11/2019 6:11 PM CDT [facility] Chloride, P 102 98 - 107 mmol/L 02/11/2019 6:11 PM CDT [facility] Bicarbonate, P 22 22 - 29 mmol/L 02/11/2019 6:11 PM CDT [facility] Anion Gap, P 17(H) 7 - 15 02/11/2019 6:11 PM CDT [facility] BUN (Blood Urea Nitrogen), P 13 6 - 21 mg/dL 02/11/2019 6:11 PM CDT [facility] Creatinine 0.83 0.59 - 1.04 mg/dL 02/11/2019 6:11 PM CDT [facility] eGFR-Black/Afri can [place] Citizen >90 >=60 mL/min/BSA 02/11/2019 6:11 PM CDT [facility] Comment: ----ADDITIONAL INFORMATION---- Estimated GFR calculated using the 2009 CKD_EPI creatinine equation. eGFR Non-Black/Afric an [place] Citizen 79 >=60 mL/min/BSA 02/11/2019 6:11 PM CDT [facility] Comment: ----ADDITIONAL INFORMATION---- Estimated GFR calculated using the 2009 CKD_EPI creatinine equation. Calcium, Total, P 9.1 8.6 - 10.0 mg/dL 02/11/2019 6:11 PM CDT [facility] Glucose, P 138 70 - 140 mg/dL 02/11/2019 6:11 PM CDT [facility] Blood (Blood, Venous) 02/11/2019 5:49 PM CDT 02/11/2019 5:51 PM CDT Wade Trevino III, M.D. LAB BLOOD ADD-ON [facility] [address] [place] [address], [facility] from Last 3 Months or Most Recently Relevant to Health Maintenance [employer] [address] [phone]
--- OUTSIDE RECORDS SUMMARY | 2024-04-30 15:48 | XMS_ITS | Data Portability ---
Author Organization [place] [facility] Address [address] [place] [address] Care Team Providers Care Formula Clerk Name Role Phone LILIAN HARPER Primary Care Provider NICHOLAS MASTERSON Referring Provider Assessment Encounter Date Assessment Date Assessment LastModified by Organization Details LastModified Time 09/10/2018 09/10/2018 I spent a considerable amount of time discussing the diagnoses, treatment options, risks and benefits of various treatment options, prognosis and the need for compliance. I also reviewed patients systemic health history, social and personal history and current medications and the complete documentation of the same is available for review in the patient's electronic health record. Based on the evaluation today, I do consider patient's symptoms to be consistent for a Temporomandibular joint disorder diagnosis with restricted translation of the right side TMJ. Contributing factors identified and discussed include oral parafunctional habits, postural factors. A panoramic radiograph was obtained in the office today and finding on the radiograph was discussed with the patient. This screening imaging revealed Right-side TMJ advanced osteoarthritic changes and Left-side TMJ WNL. Overall, the dento-alveolar tissue appeared WNL. I reviewed some self care strategies with the patient today. This included the use of moist-heat therapy on a regular basis, eating a soft diet and chewing bilaterally simultaneously. the technique in keeping the jaw relaxed at all times with the teeth apart and tongue resting on the roof of the mouth was demonstrated and discussed. Patient was also educated on the significance of compliance to self-care today. I recommended evaluation and treatment with a physical therapist to improve pain-free range of motion and function. Physical therapy strategies of exercises and modalities and the value of those were discussed with the patient. Iontophoresis with 4mg/ml dexamethasone twice a week for three weeks is recommended in the painful joint to address inflammatory pain. Fabrication of a Maxillary viho-eezlrldbls-sej l appliance to address patient's diagnoses would be considered as a part of the treatment plan. The goals with the use of an intra-oral appliance was discussed with the patient today. Given the risk for chronicity and recurrent need for medication management in acute pain flare-ups, I consider the above outlined interdisciplinary treatments medically necessary. I recommended NSAID intake of Ibuprofen 600 mg TID for 10 days concurrent to beginnning care with PT and splint therapy. Total visit time 60 minutes. I spent 45 minutes on counselling and co-ordination of care. Not available 09/10/2018 17:02:14 09/24/2018 09/24/2018 The oral-applian ce fit and occlusion was adjusted today. The risks and benefits of using the appliance was reviewed with the patient. The patient was asked to not use the splint unless it is routinely checked by a dentist specialist. Splint care instructions were reviewed with the patient. Not available 09/27/2018 10:27:06 Plan of Treatment Reminders Order Date Submit Date Provider Last Modified By Organization Details Last Modified Time Details Appointments None recorded. Lab None recorded. Referral physical therapist referral 2017 018 [email or web address] [place], [address], [place], [place], [address], 8 09:02:48 Procedures None recorded. Surgeries None recorded. Imaging XR, orthopantog vince 2017 018 [email or web address] Edgar, [address], [place], [place], [address], 8 09:02:48 Medication Orders None recorded. Patient TargetsNo targets recorded. Patient Instructions Encounter Date Encounter Id Patient Instructions Last Modified By Organization Details Last Modified Time 09/10/2018 [id number] oral appliance preparation* Not available 09/10/2018 17:01:01 Self Care for TMD Not availabl e 09/10/2018 17:01:01 Reason for Referral Physical Therapist Referral for Articular disc disorder of temporomandibular joint Referring Physician: Mariah Jones, Pain Management, [phone] Encounter Date: 09/10/2018 Results Created Date Observation Date Name Description Value Unit Range Abnormal Flag LastModifiedBy Organization Detail LastModifiedTime 09/10/20 18 XR, ortho panto gram No observ ation record ed. Not Available 09/23/2018 16:29:19 Result Notes None recorded. 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 Medical Equipment None Reported. Allergies No known drug allergies Medications Name Sig Start Date Stop Date Status Note LastModified by Organization Details LastModified Time levothyroxin e 88 mcg tablet once daily active Not Available Not Available No t Available gabapentin 100 mg capsule 2 tablets qhs active Not Available Not Available No t Available Fluarix Quad [id number] (PF) 60 mcg (15 mcg x 4)/0.5 mL IM syringe 09/10 completed Not Available Not Available Not Available Vitals Date Recorded Body height Body mass index (BMI) Body weight Provider Name and Address Organization Details Last Updated DateTime 09/10/2018 157.48 cm 36.6 kg/m2 04509.47 g Lizz Rivera [facility] 09/10/2018 13:40:05 Date Recorded Body height Body mass index (BMI) Body weight Provider Name and Address Organization Details Last Updated DateTime 09/24/2018 157.48 cm 36.6 kg/m2 58703.47 g Lizz Rivera [facility] 09/24/2018 15:06:58 Social History Question Answer Notes LastModified by Organizat ion Details LastModified Time Tobacco Smoking Status Former Smoker Lizz Rivera [facility] 09/10/2018 13:31:42 What Is Your Level Of Alcohol Consumption? Occasional Information not available 09/10/2018 Auto Related Injury? No Information not available 09/10/2018 What Is Your Level Of Caffeine Consumption? Moderate Information not available 09/10/2018 Are You Currently Employed? Yes Information not available 09/10/2018 Currently No Information not available 09/10/2018 What Type Of Diet Are You Following? REGULAR Information not available 09/10/2018 Do You Reside In Or Have You Traveled To An Area Where Ebola Virus Transmission Is Active? 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 (0=no Pain, 10=pain As Bad As You Can Imagine) 8 Information not available 09/10/2018 What Number Best Describes How, During The Past Week, Pain Has Interfered With Your Enjoyment Of Life? (0=does Not Interfere, 10= Completely Interferes) 6 Information not available 09/10/2018 What Number Best Describes How, During The Past Week, Pain Has Interfered With Your General Activity? (0=does Not Interfere, 10=completely Interferes) 5 Information not available 09/10/2018 How Did Primary Problem Begin? Eating Information not available 09/10/2018 What Was The Date Of Your Most Recent Tobacco Screening? 09/24/2018 Information not available 06/23/2019 How Many Children Do You Have? 7 Information not available 09/10/2018 Relationship Status Information not available 09/10/2018 General Stress Level Low Information not available 09/24/2018 Do You Use Any Illicit Or Recreational Drugs? No Information not available 09/10/2018 How Many Years Have You Smoked Tobacco? 5 Information not available 09/10/2018 Work Related Injury? No Information not available 09/10/2018 Sex: Female Functional Status Question Answer Note LastModified by Organizat ion Details LastModified Time What is your exercise level? Occasional Information not available 09/10/2018 Mental Status None recorded. Family History Relationship Description Onset Age of this Age Resolved Age Notes Mother Family history of cancer Breast Mother Arthritis Medical History Condition Response Coronary Artery Disease N Other N Gout N MRSA N Head Trauma/Injury N Lung Disease N Glaucoma N Depression N COPD N Pneumonia N Pacemaker N Obstructive Sleep Apnea N Anxiety Disorder N Muscle, Joint, or Bone Problems N Autoimmune disease N Vision or Eye Problems N Arthritis N Acid Reflux (GERD) N Cancer N Stroke N Back Injury N High Cholesterol N Liver Disease N Organ Transplant N Rheumatoid Arthritis N Headaches N Fibromyalgia N Kidney Disease N Allergies/Hayfever N Post traumatic stress disorder (PTSD) N Parkinson's Disease N Migraines N Brain Tumors N Anemia N Multiple Sclerosis N Heart Attack ([place]) N Stomach Ulcers N Diabetes N Bleeding Disorder N Seizures/Epilepsy N Tuberculosis N AIDS/HIV N Dementia N Asthma N Substance Abuse N Vertigo N Sleep Disorder N Hepatitis N Neuropathy N Heart Disease N Pulmonary Embolism N Hypertension N Osteoporosis N Gynecological HistoryNo gynecological history recorded. Obstetrics History GPAL:G 0 P 0 0 0 0 Immunizations Vaccine Type Date Status Provider Name and Address Organization Details Recorded Time Influenza, seasonal, injectable 08/30/2018 completed JANIE Fish [facility] 09/10/2018 13:31:54 Past Encounters Encounter ID Performer Location Encounter Start Date Encounter Closed Date Diagnosis/Indication Diagnosis SNOMED-CT Code [id number] [place] [place] [address] 09/10/2018 12:59:35 09/13/2018 09:02:47 Arthralgia of temporomandibular joint 56671936 Articular disc disorder of temporomandibular joint 41834757 Myofascial pain 01093948 9 Osteoarthritis [id number] [place] [address] 09/24/2018 14:57:52 09/24/2018 15:22:00 Myofascial pain 016159877 Arthralgia of temporomandibular joint 21353584 Articular disc disorder of temporomandibular joint 52261984 Health Concerns Section Related Observation LastModified by Organization Detai ls LastModified Time None Recorded Concern Status LastModified by Organization Details LastModified Time None Recorded Advance Directives Directive None Recorded Payers Encounter Date Sequence Insurance Name Policy Number Policy Ramos Covered Member ID Ramos Member ID Guarantor Name 09/24/2018 1 [facility] [id number] Ashleigh Acevedo [id number] Ashleigh Acevedo 09/10/2018 1 [facility] [id number] Ashleigh Acevedo [id number] Ashleigh Sens Notes Date Note Type Note Provider Name and Address Organization Details Recorded Time 09/10/2018 text/html HPI Notes: Cesar early reports jaw pain on the right-side , which startedyear ago. The pain is located in the inside her right ear region. Patient reports the severity of pain as 0-8 on a scale of 0-10 and describes the quality of the pain assharp. The pain is recurrent. Associated symptoms include history of locking, bite changes, limited mouth opening, jaw joint noises, ear pain. Contextual factors include trauma (patient locked her jaw about 1 year ago), stress, muscle tension. Aggravating factors include chewing / eating, biting down and using her teeth to open something, opening mouth wide, yawning, active jaw movement . Patient has tried softer foods, self adjustment, avoids chewing gum, OTC medication (Ibuprofen), heat therapy to alleviate symptoms, which has not been effective. Past treatment includes ENT consult / evaluation, DDS consult . JANIE Parrish DDS [facility] 09/10/2018 17:03:12 09/24/2018 text/html HPI Notes: Cesar nt presents today for insertion of a maxillary stabilization oral appliance. They note no changes in symptoms which are documented in the patient history of present illness. (S)he describes compliance with home self care as previously recommended. Patient had 1 PT appointment so far. JANIE [facility] 09/27/2018 10:27:27 OBGyn Episode No OBEpisode recorded.
--- OUTSIDE RECORDS SUMMARY | 2024-04-30 15:48 | XMS_ITS ---
Author Organization [facility] Address [address] [place] [address] Care Team Providers Care Wiping Rag Washer Name Role Phone Unavailable Unavailable Unavailable Surgery Details Not on file Complications Check Surgery Details section. Procedure Estimated Blood Loss Check Surgery Details section. Procedure Findings Check Surgery Details section. Procedure Specimens Taken Check Surgery Details section.
--- OUTSIDE RECORDS SUMMARY | 2024-04-30 15:48 | XMS_ITS | Referral Summary ---
Author Organization [facility] Address [address] [place] [address] Care Team Providers Care Project Analyst Name Role Phone Unavailable Primary Care Provider Unavailabl e Source Comments Patient records contain information from all sites at [facility]. For routine questions regarding patient records, call [phone] during business hours, M-F 8:00 AM - 5:00 PM Central Time. Record requests for emergency care only can be directed to [phone] at any time.[facility] Allergies Active Allergy Reactions Criticality Noted Date [...] quad (FLUZONE/FLUARIX) (6 months and older)(PF) 08/03/2017,08/23/2016,08/26/2015,2013 Social History Tobacco Use Types Packs/Day Years [...] Comments Blood Pressure 156/95 11/12/2020 2:02 PM GUITAR MAKER Pulse 73 11/12/2020 2:02 PM GUITAR MAKER Temperature 36.3 ??C (97.3 ??F) 11/12/2020 2:02 PM CS T Respiratory Rate 20 11/12/2020 2:02 PM GUITAR MAKER Oxygen Saturation 100% 11/12/2020 2:02 PM GUITAR MAKER Inhaled Oxygen Concentration - - Weight 93.4 kg (205 lb 14.6 oz) 024 10:06 AM GUITAR MAKER Height 159 cm (5' 2.6) 12/23/2023 10:0 6 AM GUITAR MAKER Body Mass Index 36.95 12/23/2023 10:06 AM GUITAR MAKER Plan of Treatment Not on file Procedures Procedure Name Priority Date/Time Associated Diagnosis Comments BASIC METABOLIC PANEL, S/P STAT 02/11/2019 5:49 PM CDT THYROID-STIMULATING HORMONE-SENSITIVE (S-TSH) STAT 02/11/2019 5:49 PM CDT from Last 3 Months or Most Recently Relevant to Health Maintenance Results * S-TSH (Thyroid-Stimulating Hormone - Sensitive) (02/11/2019 5:49 PM CDT) TSH, Sensitive 2.3 0.3 - 4.2 mIU/L 02/11/2019 6:20 PM CDT [facility] Comment: Biotin has been identified by the drawer in plain loom as a potential interfering substance. ??Higher concentrations of biotin may be found in multivitamins, hair/nail supplements, and workout supplements. ??If the result does not match clinical observations, repeat testing after patient refrains from the use of supplements for at least 12 hours. Blood (Blood, Venous) 02/11/2019 5:49 PM CDT 02/11/2019 5:51 PM CDT Wade Trevino III, M.D. LAB BLOOD ADD-ON Performing Organization Address City/State/[facility] Co de Phone Number [facility] [address] [place] [address], [facility] * (ABNORMAL) BMP (Basic Metabolic Panel) (02/11/2019 5:49 PM CDT) Potassium, P 3.4(L) 3.6 - 5.2 mmol/L 02/11/2019 6:11 PM CDT [facility] Sodium, P 141 135 - 145 mmol/L 02/11/2019 6:11 PM CDT [facility] Chloride, P 102 98 - 107 mmol/L 02/11/2019 6:11 PM CDT [facility] Bicarbonate, P 22 22 - 29 mmol/L 02/11/2019 6:11 PM CDT [facility] Anion Gap, P 17(H) 7 - 15 02/11/2019 6:11 PM CDT [facility] BUN (Blood Urea Nitrogen), P 13 6 - 21 mg/dL 02/11/2019 6:11 PM CDT [facility] Creatinine 0.83 0.59 - 1.04 mg/dL 02/11/2019 6:11 PM CDT [facility] eGFR-Black/Afri can Lithuanian >90 >=60 mL/min/BSA 02/11/2019 6:11 PM CDT [facility] Comment: ----ADDITIONAL INFORMATION---- Estimated GFR calculated using the 2009 CKD_EPI creatinine equation. eGFR Non-Black/Afric an Lithuanian 79 >=60 mL/min/BSA 02/11/2019 6:11 PM CDT [facility] Comment: ----ADDITIONAL INFORMATION---- Estimated GFR calculated using the 2009 CKD_EPI creatinine equation. Calcium, Total, P 9.1 8.6 - 10.0 mg/dL 02/11/2019 6:11 PM CDT [facility] Glucose, P 138 70 - 140 mg/dL 02/11/2019 6:11 PM CDT [facility] Blood (Blood, Venous) 02/11/2019 5:49 PM CDT 02/11/2019 5:51 PM CDT Wade Trevino III, M.D. LAB BLOOD ADD-ON [facility] [address] [address], [facility] from Last 3 Months or Most Recently Relevant to Health Maintenance
--- NOTE | 2024-04-30 16:42 | ED_ITS ---
HPI - Extremity Injury (Lower) General Date Seen: 04/30/24 Chief Complaint: Extremity Pain/Injury, Lower Stated Complaint: R leg pain Time Seen by Provider: 04/30/24 13:57 Source: patient and family Mode of arrival: ambulatory Limitations: no limitations History of Present Illness HPI Narrative: Patient is a very nice 64-year-old female presents here with right calf discomfort fullness and swelling. She has had this now for 2 days, she does remember injuring herself for stepping off. She has no past history of DVTs pulmonary emboli or other issues, she has no history of being anticoagulated, she did talk to her daughter who is a pharmacist in her other doctor who is RN who told her to get her butt to the emergency room to be seen. Denies any numbness tingling weakness, there is no knee swelling. Related Data Home Medications ?Medication ?Instructions ?Recorded ?Confirmed aspirin 325 mg tablet 325 mg PO QDAY 08/19/22 04/30/24 multivitamin 1 tab PO QAM 08/19/22 04/30/24 ferrous sulfate 325 mg (65 mg 325 mg PO 2XW 09/01/23 04/30/24 iron) tablet (Feosol) Previous Rx's ?Medication ?Instructions ?Recorded levothyroxine 88 mcg tablet 88 mcg PO DAILY #90 tabs 09/03/23 gabapentin 100 mg capsule 200 mg (2 x 100 mg) PO .HS #180 12/31/23 caps Allergies Allergy/AdvReac Type Severity Reaction Status Date / Time No Known Drug Allergies Allergy Verified 09/01/23 07:45 Review of Systems Status of ROS: Reports: 10 or more systems reviewed and unremarkable except as noted in History and below PFSH PFS Surgical History History of tubal ligation ?Z98.51 - Tubal ligation status (ICD-10) History of hernia repair ?Z98.890 - Other specified postprocedural states (ICD-10) ?Z87.19 - Personal history of other diseases of the digestive system (ICD-10) Social History What is your current living situation?: declined to answer Problems where you live: declined to answer In the past 12 months, utilities in danger of being shut off: declined to answer In past 12 months, lack of transportation kept you from medical appts, meetings, work, or getting things needed for daily living: no In the past 12 mos, have been you worried that your food would run out before you had money to buy more?: declined to answer In the past 12 mos, the food you bought just didn't last and you didn't have money to buy more?: declined to answer Smoking Status: Former smoker How often do you have a drink containing alcohol: never AUDIT-C Alcohol total score: 0 Non-prescribed substance use: denies use How often does anyone, including family, friends and others, physically hurt you : decline to answer How often does anyone, including family, friends and others, insult or talk down to you: decline to answer How often does anyone, including family, friends and others, threaten you with harm: decline to answer How often does anyone, including family, friends and others, scream or curse at you: decline to answer Little interest or pleasure in doing things: not at all Feeling down, depressed, or hopeless: not at all Exam Narrative: Exam Narrative: On examination she is in no apparent distress he is pleasant alert, examination shows the fit healthy female with an elevated BMI her chest is good air entry bilaterally no wheezing crackles noted heart sounds are normal. Her right calf is a little bit more swollen than the left, with the upper calf being more sore, her knee has good range of motion. Her popliteal pop fossa feels a little bit full also. DP and posterior tibial pulses are normal her sensations normal she is able to bear weight walk, her range of motion is from 0 through to 100? of her right knee. Const: Vital Signs, click to edit/add: Vital Signs - 24 hr 04/30/24 14:05 Temperature 98.1 F Pulse Rate [Pulse Oximeter] 68 Respiratory Rate 18 Blood Pressure [Ri ght Upper Arm] 145/80 H Pulse Oximetry 96 Oxygen Delivery Me thod Room Air Course Vital Signs Vital signs: Initial Vital Signs Temperature 98.1 F 04/30/24 14:05 Temperature Source Temporal Artery Scan 04/30/24 14:05 Pulse Rate 68 04/30/24 14:05 Respiratory Rate 18 04/30/24 14:05 Blood Pressure 145/80 H 04/30/24 14:05 Blood Pressure Mean 101 04/30/24 14:05 Blood Pressure Position Sitting 04/30/24 14:05 Pulse Oximetry 96 04/30/24 14:05 Oxygen Delivery Method Room Air 04/30/24 14:05 Vital Signs Temperature 98.1 F 04/30/24 14:05 Pulse Rate 68 04/30/24 14:05 Respiratory Rate 18 04/30/24 14:05 Blood Pressure 145/80 H 04/30/24 14:05 Pulse Oximetry 96 04/30/24 14:05 Oxygen Delivery Method Room Air 04/30/24 14:05 Temperature 98.1 F 04/30/24 14:05 Pulse Rate 68 04/30/24 14:05 Respiratory Rate 18 04/30/24 14:05 Blood Pressure 145/80 H 04/30/24 14:05 Pulse Oximetry 96 04/30/24 14:05 Oxygen Delivery Method Room Air 04/30/24 14:05 MDM - Extremity Injury (Lower) MDM Narrative Medical decision making narrative: DVT versus Vega cyst verses a soleus or gastrocnemius tear, verses an Achilles rupture versus sciatica, or acute order arterial occlusion. I do think this is likely either a DVT or possible Vega cyst. Medical Records Attestation: I reviewed the patient's medical records. Imaging Data Right leg ultrasound: Radiologist's impression: Patient: CHARLIE CRUZ Facility:?[facility] Patient ID:?[id number] Site Patient ID:?[id number]. Site :?[id number] Study:?US-Extremity Right lower leg venous-04/30/2024 3:17:24 PM Ordering Physician:Chace Forte Final Report: CLINICAL HISTORY: Swelling right lower extremity TECHNIQUE: A compression venous ultrasound exam was performed of the right lower extremity using johns-scale imaging, color Doppler and spectral Doppler analysis. FINDINGS: Sonographic imaging of the right lower extremity demonstrates normal compre ssibility and color Doppler venous blood flow within the common femoral vein, deep femoral vein, and the proximal greater saphenous vein. Within the thigh, the femoral vein is patent and compressible. At a lower level, the popliteal and posterior tibial veins also show normal compressibility and color Doppler venous blood flow. Limited imaging of the contralateral groin demonstrates a normal spectral waveform and color Doppler venous blood flow within the left common femoral vein. A 4.4 x 4.1 x 0.9 centimeter complex fluid collection in the right posterior calf [id number]; rule out dissecting popliteal cyst. IMPRESSION: Normal venous ultrasound exam. No evidence of deep vein thrombosis within the right lower extremity. Rule out popliteal cyst with dissection into the upper calf Dictated by Leonardo Espinal MD @ 04/30/2024 4:04:55 PM (Electronic Signature) Discharge Plan Discharge Clinical Impression: Vega's cyst, ruptured Patient Disposition: Home w/ Parent or Adult Condition: Stable Additional Instructions: Home rest nonweightbearing, follow up with Orthopedics, I would recommend use of Tylenol and or ibuprofen for discomfort ice, return as needed Please teach crutch care to them. She has her own crutches at home Activity Level: Light activity Prescriptions: No Action aspirin 325 mg tablet 325 mg PO QDAY multivitamin Tablet 1 tab PO QAM ferrous sulfate [Feosol] 325 mg (65 mg iron) tablet 325 mg PO 2XW levothyroxine 88 mcg tablet 88 mcg PO DAILY Qty: 90 3RF gabapentin 100 mg capsule 200 mg PO .HS Qty: 180 2RF Follow Up/Referrals: Alie Maya MD [Primary Care Provider] - Wayne Chong MD [Staff Physician] - Stand Alone Forms: [employer] (P) Info Instructions
== END 2024-04-30 16:45 | disposition home or self-care (01) ==
PROVIDERS: Emergency Provider Family Medicine; PCP Internal Medicine
DX: M66.0 Rupture of popliteal cyst (principal)
CPT/HCPCS: 93971; 99283

== ENCOUNTER 2024-05-06 08:38 | Outpatient (RCR) | payer OTHER, SELFPAY | END 2024-09-03 23:59 | disposition home or self-care (01) | PROVIDERS: PCP Internal Medicine; Visit Provider Physician Assistant Surgical | DX: M62.89 Other specified disorders of muscle (principal); M66.0 Rupture of popliteal cyst; Z51.89 Encounter for other specified aftercare | CPT/HCPCS: 97110; 97140; 97162 ==

== ENCOUNTER 2024-09-23 14:40 | Outpatient (CLI) | payer OTHER, SELFPAY ==
--- OUTSIDE RECORDS SUMMARY | 2024-09-23 14:42 | XMS_ITS | Clinical Summary ---
Author Organization [facility] Address [place], [place] [address] Care Team Providers Care Monitor Worker Name Role Phone VotelGus MD Primary Care [...] (FLONASE) sprayIndications:All ergic rhinitis, cause unspecified 1 [place] once daily. 1 Bottle 5 02/17/2013 Active [...] Date Diagnosed Date Adenomatous colon polyp 04/27/2013 Overview (04/27/2013): Colonoscopy 03/2013 polyp repeat in 5 years [...] Comments Blood Pressure 124/87 11/07/2015 9:34 AM BUFFING MACHINE TENDER tow er Pulse 73 11/07/2015 9:34 AM BUFFING MACHINE TENDER Temperature 36.7 ??C (98.1 ??F) 07/04/2015 10:19 AM C DT Respiratory Rate 18 08/13/2015 3:08 PM CDT Oxygen Saturation 97% 11/07/2015 9:34 AM BUFFING MACHINE TENDER Inhaled Oxygen Concentration - - Weight 96.4 kg (212 lb 9.6 oz) 11/07/2015 9:34 A M BUFFING MACHINE TENDER Height 158.8 cm (5' 2.5) 02/14/2013 9:37 [...] 08/12/2020 08/12/2010 COVID-19 vaccine series ( season) 2024 Influenza for age 50-64 07/31/2024 Pap test for age 21-65 09/01/2026 3, 09/01/2023, 06/08/2018, Additional history exists Tdap Completed 08/12/2010 Pneumococcal series for age 6-64 Aged Out No longer eligible based on patient's age to complete this topic Procedures Procedure Name Priority Date/Time Associated Diagnosis Comments HPV HIGH RISK Routine 09/01/2023 8:30 AM CDT LIPID PANEL W REFLEX MEASURED LDL Routine 02/14/2013 9:21 AM CDT Routine physical examination XR MAMMO BILAT SCREEN FFDM (IA) Routine 09/13/2012 2:53 PM CDT Other screening mammogram from Last 3 Months or Most Recently Relevant to Health Maintenance Results * HPV HIGH RISK (09/01/2023 8:30 AM CDT) TYPE 16 Negative Negative 09/04/2023 1:16 PM CDT [facility] TYPE 18 Negative Negative 09/04/2023 1:16 PM CDT [facility] OTHER HIGH RISK TYPES Negative Negative 09/04/2023 1:16 PM CDT [facility] Other (Cervical) 09/01/2023 8:30 AM CDT 09/01/2023 5:21 PM CDT Narrative [facility] - 09/04/2023 1:16 PM CDT HPV types 16, 18, 31, 33, 35, 39, 45, 51, 52, 56, 58, 59, 66 and 68 DNA were undetectable or below the pre-set threshold. Methodology: Zayda Cruzito 4800 HPV Test Alie Maya MD MICROBIOLOGY Performing Organization Address City/[facility]/ZIP Co de Phone Number [facility] [address] [place] [address], * (ABNORMAL) LIPID PANEL W REFLEX MEASURED [...] Gus Alanis MD CHEMISTRY Performing Organization Address City/[facility]/ZIP Co de Phone Number [facility] [address] [place] [address] * XR MAMMO BILAT SCREEN FFDM (09/13/2012 [...] Recently Relevant to Health Maintenance Care Teams Monitor Worker Relationship Specialty Start Date End Date StephenteGus webber MD [address] [place] [address] [facility] - General 02/17/07
--- OUTSIDE RECORDS SUMMARY | 2024-09-23 14:42 | XMS_ITS | Referral Summary ---
Author Organization [facility] Address [address] [place] [address] Care Team Providers Care Reel Film Inspector Name Role Phone Unavailable Primary Care Provider Unavailabl e Source Comments Patient records contain information from all sites at [facility]. For routine questions regarding patient records, call [phone] during business hours, M-F 8:00 AM - 5:00 PM Central Time. Record requests for emergency care only can be directed to [phone] at any time.[facility] Allergies Active Allergy Reactions Criticality Noted Date Comments No Known Allergies Other (see comments) 011 Medications levothyroxine (SYNTHROID) 75 mcg tablet Take 1 tablet by mouth daily. Pt states she takes 80mg 1 Active gabapentin (for_NEURONTIN ) 100 mg capsule Take 200 mg by mouth at bedtime. Active aspirin [address] tablet Take 325 mg by mouth. 3 Active fluticasone propionate (FLONASE) 50 mcg/actuation nasal spray 1 spray. 3 Active gabapentin (NEURONTIN) 100 mg capsule gabapentin 100 mg capsule 2 tablets qhs Active levothyroxine (SYNTHROID, LEVOTHROID) 88 mcg tablet levothyroxine 88 mcg tablet once daily Active multivitamin tablet Take 1 tablet by mouth. 1 Active omeprazole (PriLOSEC) [address] capsule Take 20 mg by mouth daily. 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 Osteoarthritis 09/10/2018 Myofascial Pain Syndrome 09/10/2018 Hypothyroidism 02/25/2014 Overview (11/12/2020): Hypothyroidism Polyp Colon Adenomatous 04/27/2013 Overview (11/12/2020): Overview: Colonoscopy 03/2013 polyp repeat in 5 years Palpitations 12/03/2011 Rhinitis Allergic 05/27/2011 Immunizations Name Administration Dates Next Due Influenza TIV (IM) 08/30/2018 Influenza, Seasonal, Injectable 10/09/2011 RZV (SHINGRIX) 01/26/2020 Td Preservative Free (TENIVA C, DECAVAC) 11/12/2020 Tdap 08/12/2010 influenza trivalent vaccine (6 months and older)(PF) 10/15/2013,10/06/2007 influenza vaccine quad (FLUZONE/FLUARIX) (6 months and [...] Recorded Dental: Regular Dentist Unknown 02/01/20 21 Comments No Sex and Gender Information Value Date Recorded Sex Assigned at Not on file Legal Sex Female 10:25 AM TOASTER ELEMENT REPAIRER Gender Identity Not on file Sexual Orientation Not on file Last Filed Vital Signs Vital Sign Reading Time Taken Comments Blood Pressure 156/95 11/12/2020 2:02 PM TOASTER ELEMENT REPAIRER Pulse 73 11/12/2020 2:02 PM TOASTER ELEMENT REPAIRER Temperature 36.3 ??C (97.3 ??F) 11/12/2020 2:02 PM CS T Respiratory Rate 20 11/12/2020 2:02 PM TOASTER ELEMENT REPAIRER Oxygen Saturation 100% 11/12/2020 2:02 PM TOASTER ELEMENT REPAIRER Inhaled Oxygen Concentration - - Weight 93.4 kg (205 lb 14.6 oz) 024 10:06 AM TOASTER ELEMENT REPAIRER Height 159 cm (5' 2.6) 12/23/2023 10:0 6 AM TOASTER ELEMENT REPAIRER Body Mass Index 36.95 12/23/2023 10:06 AM TOASTER ELEMENT REPAIRER Plan of Treatment Not on file Procedures [...] - 4.2 mIU/L 02/11/2019 6:20 PM CDT [facility] Comment: Biotin has been identified by the armature winder repair helper as a potential interfering substance. ??Higher concentrations of biotin may be found in multivitamins, hair/nail supplements, and workout supplements. ??If the result does not match clinical observations, repeat testing after patient refrains from the use of supplements for at least 12 hours. Blood (Blood, Venous) 02/11/2019 5:49 PM CDT 02/11/2019 5:51 PM CDT Wade Trevino III, M.D. LAB BLOOD ADD-ON Final Result [facility] [address] [id number] * (ABNORMAL) BMP (Basic Metabolic Panel) (02/11/2019 5:49 PM CDT) Pathologist [facility] Potassium, P 3.4(L) 3.6 - 5.2 mmol/L 02/11/2019 6:11 PM CDT [facility] Sodium, P 141 135 - 145 mmol/L 02/11/2019 6:11 PM CDT [facility] Chloride, P 102 98 - 107 mmol/L 02/11/2019 6:11 PM CDT [facility] Bicarbonate, P 22 22 - 29 mmol/L 02/11/2019 6:11 PM CDT [facility] Anion Gap, P 17(H) 7 - 15 02/11/2019 6:11 PM CDT [facility] BUN (Blood Urea Nitrogen), P 13 6 - 21 mg/dL 02/11/2019 6:11 PM CDT [facility] Creatinine 0.83 0.59 - 1.04 mg/dL 02/11/2019 6:11 PM CDT [facility] eGFR-Black/Afri can Monegasque >90 >=60 mL/min/BSA 02/11/2019 6:11 PM CDT [facility] Comment: ----ADDITIONAL INFORMATION---- Estimated GFR calculated using the 2009 CKD_EPI creatinine equation. eGFR Non-Black/Afric an Monegasque 79 >=60 mL/min/BSA 02/11/2019 6:11 PM CDT [facility] Comment: ----ADDITIONAL INFORMATION---- Estimated GFR calculated using the 2009 CKD_EPI creatinine equation. Calcium, Total, P 9.1 8.6 - 10.0 mg/dL 02/11/2019 6:11 PM CDT [facility] Glucose, P 138 70 - 140 mg/dL 02/11/2019 6:11 PM CDT [facility] Blood (Blood, Venous) 02/11/2019 5:49 PM CDT 02/11/2019 5:51 PM CDT us Wade Trevino III, M.D. LAB BLOOD ADD-ON Final Result [facility] [address] [id number], [facility] from Last 3 Months or Most Recently Relevant to Health Maintenance Insurance [facility]
--- OUTSIDE RECORDS SUMMARY | 2024-09-23 14:42 | XMS_ITS | Clinical Summary ---
Author Organization [facility] Address [address] [place] [address] Care Team Providers Care Procedures Tech Name Role Phone Unavailable Primary Care Provider Unavailabl e Source Comments Patient records contain information from all sites at [facility]. For routine questions regarding patient records, call [phone] during business hours, M-F 8:00 AM - 5:00 PM Central Time. Record requests for emergency care only can be directed to [phone] at any time.[facility] Allergies Active Allergy Reactions Criticality Noted [...] on file Legal Sex Female 10:25 AM DRAW OPERATOR Gender Identity Not on file Sexual Orientation Not on file Last Filed Vital Signs Vital Sign Reading Time Taken Comments Blood Pressure 156/95 11/12/2020 2:02 PM DRAW OPERATOR Pulse 73 11/12/2020 2:02 PM DRAW OPERATOR Temperature 36.3 ??C (97.3 ??F) 11/12/2020 2:02 PM CS T Respiratory Rate 20 11/12/2020 2:02 PM DRAW OPERATOR Oxygen Saturation 100% 11/12/2020 2:02 PM DRAW OPERATOR Inhaled Oxygen Concentration - - Weight 93.4 kg (205 lb 14.6 oz) 024 10:06 AM DRAW OPERATOR Height 159 cm (5' 2.6) 12/23/2023 10:0 6 AM DRAW OPERATOR Body Mass Index 36.95 12/23/2023 10:06 AM DRAW OPERATOR Plan of Treatment Health Maintenance Due Date Last Done Comments CT Colonography 1962 Cologuard 1962 Colonoscopy 1962 Colorectal Cancer Surveillance 1962 HIV Screening 1962 Hepatitis C Screening 1962 Lipid (Cholesterol) Screening 1962 Mammogram 1962 Thyroid Stimulating Hormone (TSH) test for thyroid function 02/12/2020 02/11/2019 Fasting Glucose for Diabetes Screening 02/11/2022 02/11/2019 Depression Screening (Annual PHQ-2) 11/30/2023 COVID-19 Vaccine ( season) 2024 Influenza Vaccine (#1) 2024 , 10/25/2019, 08/30/2018, Additional history exists Cervical Cancer Screening 09/01/2026 09/01/2023, 08/2018 DTaP,Tdap,and [...] - 4.2 mIU/L 02/11/2019 6:20 PM CDT [facility] Comment: Biotin has been identified by the order manager as a potential interfering substance. ??Higher concentrations of biotin may be found in multivitamins, hair/nail supplements, and workout supplements. ??If the result does not match clinical observations, repeat testing after patient refrains from the use of supplements for at least 12 hours. Blood (Blood, Venous) 02/11/2019 5:49 PM CDT 02/11/2019 5:51 PM CDT us Wade Trevino III, M.D. LAB BLOOD ADD-ON Final Result [facility] [address] * (ABNORMAL) BMP (Basic Metabolic Panel) (02/11/2019 5:49 PM CDT) Potassium, P 3.4(L) 3.6 - 5.2 mmol/L 02/11/2019 6:11 PM CDT [facility] Sodium, P 141 135 - 145 mmol/L 02/11/2019 6:11 PM CDT [facility] Chloride, P 102 98 - 107 mmol/L 02/11/2019 6:11 PM CDT [facility] Bicarbonate, P 22 22 - 29 mmol/L 02/11/2019 6:11 PM CDT [facility] Anion Gap, P 17(H) 7 - 15 02/11/2019 6:11 PM CDT [facility] BUN (Blood Urea Nitrogen), P 13 6 - 21 mg/dL 02/11/2019 6:11 PM CDT [facility] Creatinine 0.83 0.59 - 1.04 mg/dL 02/11/2019 6:11 PM CDT [facility] eGFR-Black/Afri can [place] >90 >=60 mL/min/BSA 02/11/2019 6:11 PM CDT [facility] Comment: ----ADDITIONAL INFORMATION---- Estimated GFR calculated using the 2009 CKD_EPI creatinine equation. eGFR Non-Black/Afric an [place] 79 >=60 mL/min/BSA 02/11/2019 6:11 PM CDT [facility] Comment: ----ADDITIONAL INFORMATION---- Estimated GFR calculated using the 2009 CKD_EPI creatinine equation. Calcium, Total, P 9.1 8.6 - 10.0 mg/dL 02/11/2019 6:11 PM CDT [facility] Glucose, P 138 70 - 140 mg/dL 02/11/2019 6:11 PM CDT [facility] Blood (Blood, Venous) 02/11/2019 5:49 PM CDT 02/11/2019 5:51 PM CDT us Wade Trevino III, M.D. LAB BLOOD ADD-ON Final Result [facility] [address] [place] [address], [facility] from Last 3 Months or Most Recently Relevant to Health Maintenance Insurance [facility]
--- OUTSIDE RECORDS SUMMARY | 2024-09-23 14:42 | XMS_ITS ---
Author Organization [facility] Address [address] [place] [address] Care Team Providers Care Cigar Head Puncher Name Role Phone Unavailable Unavailable Unavailable Surgery Details Not on file Complications Check Surgery Details section. Procedure Estimated Blood Loss Check Surgery Details section. Procedure Findings Check Surgery Details section. Procedure Specimens Taken Check Surgery Details section.
--- OUTSIDE RECORDS SUMMARY | 2024-09-23 14:42 | XMS_ITS | Data Portability ---
Author Organization [place] [facility] Address [address] [address] Care Team Providers Care Communications Station Manager Name Role Phone LILIAN HARPER Primary Care Provider NICHOLAS MASTERSON Referring Provider [phone] Assessment Encounter Date Assessment Date Assessment LastModified [...] address inflammatory pain. Fabrication of a Maxillary gcdi-[id number]-fmu l appliance to address patient's diagnoses would [...] physical therapist referral 2017 018 [address] [place], [address], [place], [address], 8 09:02:48 Procedures None recorded. Surgeries None recorded. Imaging XR, orthopantog vince 2017 018 [address] [place], [address], [place], [place], [address], 8 09:02:48 Medication Orders None recorded. Patient TargetsNo targets recorded. Patient Instructions Encounter Date Encounter Id Patient Instructions Last Modified By Organization Details Last Modified Time 09/10/2018 [id number] oral appliance preparation* Not available 09/10/2018 17:01:01 Self Care for TMD Not availabl e 09/10/2018 17:01:01 Reason for Referral Physical Therapist Referral for Articular disc disorder of temporomandibular joint Referring Physician: Mariah Jones, Pain Management, Encounter Date: 09/10/2018 Results Created Date Observation Date Name Description Value Unit Range Abnormal Flag Note LastModifiedBy Organization Detail LastModifiedTime 09/10/20 18 XR, ortho panto gram No observ ation record ed. Not Available 2017 16:29:19 Result Notes None recorded. Problems Name Problem SNOMED Code Status Onset Date Resolution Date Notes Provider Name and Address Organization Details Recorded Time Arthralgia of temporomandibu lar joint 23469125 Active 2017 [facility] 8 17:00:20 Myofascial pain 710306201 Active 2017 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 8 17:01:47 Problem Notes None recorded. Procedures Surgical History Date Name Laterality Status Provider Name and Address Organization Details Recorded Time 8 [facility] 09/27/2018 10:26:58 5 Other [facility] 09/10/2018 13:31:47 7 Material Control Manager Surgery completed Lizz Rivera [facility] 09/10/2018 13:31:47 [place] Teeth Extraction [facility] 09/10/2018 [...] Not Available No t Available Fluarix Quad [id number] (PF) 60 mcg (15 mcg x 4)/0.5 mL IM syringe 09/10 completed Not Available Not Available Not Available Vitals Date Recorded Body height Body mass index (BMI) Body weight Provider Name and Address Organization Details Last Updated DateTime 09/10/2018 157.48 cm 36.6 kg/m2 86955.47 g Lizz Rivera [facility] 09/10/2018 13:40:05 Date Recorded Body height Body mass index (BMI) Body weight Provider Name and Address Organization Details Last Updated DateTime 09/24/2018 157.48 cm 36.6 kg/m2 54439.47 g Lizz Rivera [facility] 09/24/2018 15:06:58 Social History Question Answer Notes LastModified by Organizat ion Details LastModified Time Tobacco Smoking Status Former Smoker Lizz Rivera [facility] [...] Injury? No Information not available 09/10/2018 Sex: Unknown Functional Status Question Answer Note LastModified by Organizat ion Details LastModified Time What is your exercise level? Occasional Information not available 09/10/2018 Mental Status None recorded. Family History Relationship Description Onset Age of this Age Resolved Age Notes LastModified by Organization Details LastModified Time Mother Family history of malignant neoplasm Breast jstreeter Not available 2017 15:01:24 Mother Arthritis jstreeter Not availab le 09/10/2018 13:41:20 Medical History Condition Response Coronary Artery Disease N Other N Gout N MRSA N Head Trauma/Injury N Glaucoma N Lung Disease N Depression N COPD N Pneumonia N Pacemaker N Obstructive Sleep Apnea N Anxiety Disorder N Muscle, Joint, or Bone Problems N Autoimmune disease N Vision or Eye Problems N Arthritis N Acid Reflux (GERD) N Cancer N Stroke N Back Injury N High Cholesterol N Liver Disease N Organ Transplant N Rheumatoid Arthritis N Fibromyalgia N Headaches N Kidney Disease N Allergies/Hayfever N Parkinson's Disease N Post traumatic stress disorder (PTSD) N Migraines N Brain Tumors N Anemia N Multiple Sclerosis N Heart Attack (SD) N Stomach Ulcers N Diabetes N Bleeding Disorder N Seizures/Epilepsy N Tuberculosis N AIDS/HIV N Dementia N Asthma N Substance Abuse N Vertigo N Sleep Disorder N Hepatitis N Heart Disease N Neuropathy N Pulmonary Embolism N Hypertension N Osteoporosis N Gynecological HistoryNo gynecological history recorded. Obstetrics History GPAL:G 0 P 0 0 0 0 Immunizations Vaccine Type Date Status Provider Name and Address Organization Details Recorded Time Influenza, split virus, trivalent, preservative 08/30/2018 completed JANIE Fish - [facility] 09/10/2018 13:31:54 Past Encounters Encounter ID Performer Location Encounter Start Date Encounter Closed Date Diagnosis/Indication Diagnosis SNOMED-CT Code Diagnosis ICD10 Code [id number] Ansley Reza DDS [facility] [address] [place] [id number] 09/10/2018 12:59:35 09/13/2018 09:02:47 Arthralgia of temporomandibular joint 11012150 M26.621 Articular disc disorder of temporomandibular joint 71838982 M26.631 Myofascial pain 49400345 9 M79.11 Osteoarthritis 316655665 M19.90 [id number] Ansley Reza MAISHAS Susana alvarado [address] [place] [id number] 09/24/2018 14:57:52 09/24/2018 15:22:00 Myofascial pain 615635293 M79.11 Arthralgia of temporomandibular joint 27245572 M26.621 Articular disc disorder of temporomandibular joint 98714283 M26.631 Health Concerns Section Related Observation LastModified by Organization Detai ls LastModified Time None Recorded Concern Status LastModified by Organization Details LastModified Time None Recorded Advance Directives Directive None Recorded Payers Encounter Date Sequence Insurance Name Policy Number Policy Ramos Covered Member ID Ramos Member ID Guarantor Name 09/10/2018 1 [id number] [id number] Ashleigh Acevedo [id number] Ashleigh Acevedo 09/24/2018 1 [id number] Ashleigh Acevedo [id number] Ashleigh Acevedo Notes Date Note Type Note Provider Name [...] evaluation, DDS consult . JANIE Parrish DDS - [facility] 09/10/2018 17:03:12 09/24/2018 text/html HPI Notes: Cesar early presents today for insertion of a maxillary stabilization oral appliance. They note no changes in symptoms which are documented in the patient history of present illness. (S)he describes compliance with home self care as previously recommended. Patient had 1 PT appointment so far. JANIE Parrish DDS [facility] 09/27/2018 10:27:27 OBGyn Episode No OBEpisode recorded.
--- NOTE | 2024-09-23 15:00 | CRLHL7_ITS ---
For Patients: As a result of the Century Cures Act, medical imaging exams and procedure reports are released immediately into your electronic medical record. You may view this report before your referring provider. If you have questions, please contact your health care provider. BILATERAL SCREENING MAMMOGRAM WITH COMPUTER-AIDED DETECTION AND TOMOSYNTHESIS TECHNIQUE: CC and MLO views were obtained. These mammographic images have been obtained using full-field digital technique. These mammographic images were interpreted with the benefit of computer-aided detection. Breast Tomosynthesis was used in this interpretation. COMPARISON FILM: 09/21/23, 07/21/22, 07/16/21. FINDINGS: There are scattered areas of fibroglandular density. IMPRESSION: There is no radiographic evidence for malignancy. ASSESSMENT: BI-RADS Category 1: Negative RECOMMENDATION: Routine screening mammogram in 1 year. A lay language report of this examination will be provided to the patient. Stoney Morales M.D. Diagnostic Radiologist [email or web address] SP/Dictated by: Stoney Morales MD @ 09/26/2024 8:54:00 AM (Electronically Signed)
== END 2024-09-23 14:41 | disposition home or self-care (01) ==
LOC: MAMMO 14:40
PROVIDERS: PCP Internal Medicine; Visit Provider Internal Medicine
DX: Z12.31 Encounter for screening mammogram for malignant neoplasm of breast (principal)
CPT/HCPCS: 77063; 77067

== ENCOUNTER 2024-10-11 08:11 | Outpatient (CLI) | payer OTHER, SELFPAY ==
--- OUTSIDE RECORDS SUMMARY | 2024-10-11 08:21 | XMS_ITS | Clinical Summary ---
Author Organization [facility] Address [address] [place] [address] Care Team Providers Care Brick Catcher Name Role Phone Unavailable Primary Care Provider Unavailabl e Source Comments Patient records contain information from all sites at [facility]. For routine questions regarding patient records, call [phone] during business hours, M-F 8:00 AM - 5:00 PM Central Time. Record requests for emergency care only can be directed to [phone] at any time.[facility] Allergies Active Allergy Reactions Criticality Noted [...] on file Legal Sex Female 10:25 AM MOLDING LINE OPERATOR Gender Identity Not on file Sexual Orientation Not on file Last Filed Vital Signs Vital Sign Reading Time Taken Comments Blood Pressure 156/95 11/12/2020 2:02 PM MOLDING LINE OPERATOR Pulse 73 11/12/2020 2:02 PM MOLDING LINE OPERATOR Temperature 36.3 ??C (97.3 ??F) 11/12/2020 2:02 PM MOLDING LINE OPERATOR Respiratory Rate 20 11/12/2020 2:02 PM MOLDING LINE OPERATOR Oxygen Saturation 100% 11/12/2020 2:02 PM MOLDING LINE OPERATOR Inhaled Oxygen Concentration - - Weight 93.4 kg (205 lb 14.6 oz) 024 10:06 AM MOLDING LINE OPERATOR Height 159 cm (5' 2.6) 12/23/2023 10:0 6 AM MOLDING LINE OPERATOR Body Mass Index 36.95 12/23/2023 10:06 AM MOLDING LINE OPERATOR Plan of Treatment Health Maintenance Due [...] ( season) 2024 Influenza Vaccine (#1) 2024 0, 10/25/2019, 08/30/2018, Additional history exists Cervical/Vaginal Cancer Screening 09/01/2026 09/01/2023, 06/08/2018 DTaP,Tdap,and Td Vaccines (4 - Td or Tdap) 11/12/2030 11/12/2020, 07/12/2020, 08/12/2010 Zoster Vaccines Completed 01/26/2020, 09/02/2019 IPV Vaccines Aged Out No longer eligi ble based on patient's age to complete this topic Pneumococcal vaccine (0-64 years) Aged Out No [...] - 4.2 mIU/L 02/11/2019 6:[address] [facility] Comment: Biotin has been identified by the trim line worker as a potential interfering substance. ??Higher concentrations of biotin may be found in multivitamins, hair/nail supplements, and workout supplements. ??If the result does not match clinical observations, repeat testing after patient refrains from the use of supplements for at least 12 hours. Blood (Blood, Venous) 02/11/2019 5:49 PM CDT 02/11/2019 5:51 PM CDT us Wade Trevino III, M.D. LAB BLOOD ADD-ON Final Result [facility] [address] [place] [address], [facility] * (ABNORMAL) BMP (Basic Metabolic Panel) (02/11/2019 5:49 PM CDT) Potassium, P 3.4(L) 3.6 - 5.2 mmol/L 02/11/2019 6:[address] [facility] Sodium, P 141 135 - 145 mmol/L 02/11/2019 6:[address] [facility] Chloride, P 102 98 - 107 mmol/L 02/11/2019 6:[address] [facility] Bicarbonate, P 22 22 - 29 mmol/L 02/11/2019 6:[address] [facility] Anion Gap, P 17(H) 7 - 15 02/11/2019 6:[address] [facility] BUN (Blood Urea Nitrogen), P 13 6 - 21 mg/dL 02/11/2019 6:[address] [facility] Creatinine 0.83 0.59 - 1.04 mg/dL 02/11/2019 6:[address] [facility] eGFR-Black/Afri can [place]er >90 >=60 mL/min/BSA 02/11/2019 6:[address] [facility] Comment: ----ADDITIONAL INFORMATION---- Estimated GFR calculated using the 2009 CKD_EPI creatinine equation. eGFR Non-Black/Afric an [place]er 79 >=60 mL/min/BSA 02/11/2019 6:[address] [facility] Comment: ----ADDITIONAL INFORMATION---- Estimated GFR calculated using the 2009 CKD_EPI creatinine equation. Calcium, Total, P 9.1 8.6 - 10.0 mg/dL 02/11/2019 6:[address] [facility] Glucose, P 138 70 - 140 mg/dL 02/11/2019 6:[address] [facility] Blood (Blood, Venous) 02/11/2019 5:49 PM CDT 02/11/2019 5:51 PM CDT Wade Trevino III, M.D. LAB BLOOD ADD-ON Final Result Performing Organization Address City/State/[facility] Co de Phone Number [facility] [address] [place] [address], [facility] from Last 3 Months or Most Recently Relevant to Health Maintenance Insurance [facility] [employer]
--- OUTSIDE RECORDS SUMMARY | 2024-10-11 08:21 | XMS_ITS ---
Author Organization [facility] Address [address] [place] [address] Care Team Providers Care Concrete Boom Pump Operator Name Role Phone Unavailable Unavailable Unavailable Surgery Details Not on file Complications Check Surgery Details section. Procedure Estimated Blood Loss Check Surgery Details section. Procedure Findings Check Surgery Details section. Procedure Specimens Taken Check Surgery Details section.
--- OUTSIDE RECORDS SUMMARY | 2024-10-11 08:21 | XMS_ITS | Referral Summary ---
Author Organization [facility] Address [address] [place] [address] Care Team Providers Care Teacher Tutor Name Role Phone Unavailable Primary Care Provider Unavailabl e Source Comments Patient records contain information from all sites at [facility]. For routine questions regarding patient records, call [phone] during business hours, M-F 8:00 AM - 5:00 PM Central Time. 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 Gender Identity Not on file Sexual Orientation Not on file Last Filed Vital Signs Vital Sign Reading Time Taken Comments Blood Pressure 156/95 11/12/2020 2:02 PM FIRMWARE ENGINEER Pulse 73 11/12/2020 2:02 PM FIRMWARE ENGINEER Temperature 36.3 ??C (97.3 ??F) 11/12/2020 2:02 PM CS T Respiratory Rate 20 11/12/2020 2:02 PM FIRMWARE ENGINEER Oxygen Saturation 100% 11/12/2020 2:02 PM FIRMWARE ENGINEER Inhaled Oxygen Concentration - - Weight 93.4 kg (205 lb 14.6 oz) 024 10:06 AM FIRMWARE ENGINEER Height 159 cm (5' 2.6) 12/23/2023 10:0 6 AM FIRMWARE ENGINEER Body Mass Index 36.95 12/23/2023 10:06 AM FIRMWARE ENGINEER Plan of Treatment Not on file Procedures [...] - 4.2 mIU/L 02/11/2019 6:20 PM CDT [facility] Comment: Biotin has been identified by the nuclear fuel enrichment technician as a potential interfering substance. ??Higher concentrations of biotin may be found in multivitamins, hair/nail supplements, and workout supplements. ??If the result does not match clinical observations, repeat testing after patient refrains from the use of supplements for at least 12 hours. Blood (Blood, Venous) 02/11/2019 5:49 PM CDT 02/11/2019 5:51 PM CDT Wade Trevino III, M.D. LAB BLOOD ADD-ON Final Result [facility] [address] [id number] * (ABNORMAL) BMP (Basic Metabolic Panel) (02/11/2019 5:49 PM CDT) Pathologist [facility] Potassium, P 3.4(L) 3.6 - 5.2 mmol/L 02/11/2019 6:11 PM CDT [facility] Sodium, P 141 135 - 145 mmol/L 02/11/2019 6:11 PM CDT [facility] Chloride, P 102 98 - 107 mmol/L 02/11/2019 6:11 PM CDT [facility] Bicarbonate, P 22 22 - 29 mmol/L 02/11/2019 6:11 PM CDT [facility] Anion Gap, P 17(H) 7 - 15 02/11/2019 6:11 PM CDT [facility] BUN (Blood Urea Nitrogen), P 13 6 - 21 mg/dL 02/11/2019 6:11 PM CDT [facility] Creatinine 0.83 0.59 - 1.04 mg/dL 02/11/2019 6:11 PM CDT [facility] eGFR-Black/Afri can [place]ger >90 >=60 mL/min/BSA 02/11/2019 6:11 PM CDT [facility] Comment: ----ADDITIONAL INFORMATION---- Estimated GFR calculated using the 2009 CKD_EPI creatinine equation. eGFR Non-Black/Afric an [place] 79 >=60 mL/min/BSA 02/11/2019 6:11 PM CDT [facility] Comment: ----ADDITIONAL INFORMATION---- Estimated GFR calculated using the 2009 CKD_EPI creatinine equation. Calcium, Total, P 9.1 8.6 - 10.0 mg/dL 02/11/2019 6:11 PM CDT [facility] Glucose, P 138 70 - 140 mg/dL 02/11/2019 6:11 PM CDT [facility] Blood (Blood, Venous) 02/11/2019 5:49 PM CDT 02/11/2019 5:51 PM CDT us Wade Trevino III, M.D. LAB BLOOD ADD-ON Final Result [facility] [address] [id number], [facility] from Last 3 Months or Most Recently Relevant to Health Maintenance Insurance [facility]
--- OUTSIDE RECORDS SUMMARY | 2024-10-11 08:21 | XMS_ITS | Clinical Summary ---
Author Organization [employer] [facility] Address [place], [place] [address] Care Team Providers Care Spot Facer Name Role Phone VotelGus MD Primary Care [...] (FLONASE) sprayIndications:All ergic rhinitis, cause unspecified 1 [place] once daily. 1 Bottle 5 02/17/2013 Active [...] Comments Blood Pressure 124/87 11/07/2015 9:34 AM [employer]OM[employer]BILE [employer] COUNSELOR tow er Pulse 73 11/07/2015 9:34 AM [employer] COUNSELOR Temperature 36.7 ??C (98.1 ??F) 07/04/2015 10:19 AM C DT Respiratory Rate 18 08/13/2015 3:08 PM CDT Oxygen Saturation 97% 11/07/2015 9:34 AM [employer] COUNSELOR Inhaled Oxygen Concentration - - Weight 96.4 kg (212 lb 9.6 oz) 11/07/2015 9:34 A M [employer] COUNSELOR Height 158.8 cm (5' 2.5) 02/14/2013 9:37 [...] 16 Negative Negative 09/04/2023 1:16 PM CDT [facility] [employer] [facility] TYPE 18 Negative Negative 09/04/2023 1:16 PM CDT [facility] OTHER HIGH RISK TYPES Negative Negative 09/04/2023 1:16 PM CDT [facility] Other (Cervical) 09/01/2023 8:30 AM CDT 09/01/2023 5:21 PM CDT Narrative [facility] - 09/04/2023 1:16 PM CDT HPV types 16, 18, 31, 33, 35, 39, 45, 51, 52, 56, 58, 59, 66 and 68 DNA were undetectable or below the pre-set threshold. Methodology: Zayda Cruzito 4800 HPV Test Alie Maya MD MICROBIOLOGY Performing Organization Address City/[facility]/ZIP Co de Phone Number [facility]ORY [address] [place] [address], * (ABNORMAL) LIPID PANEL W REFLEX MEASURED LDL (02/14/2013 9:21 AM CDT) CHOLESTEROL,TOTAL 209(H) 100 - 199 mg/dL 02/14/2013 9:47 AM CDT [facility] TRIGLYCERIDES 76 <150 mg/dL 02/14/2013 9:47 AM CDT [facility] HDL CHOLESTEROL 68 >40 mg/dL 3 9:47 AM CDT [facility] NON-HDL CHOLESTEROL 141 <145 mg/dl 02/14/2013 9:47 AM T [facility] CHOL/HDL RATIO 3.07 <4.50 02/14/2013 9:47 AM T [facility] LDL CHOLESTEROL 126 <=130 mg/dL 02/14/2013 9:47 AM T [facility] PATIENT STATUS FASTING 02/14/2013 9:47 AM T [facility] Blood specimen (specimen) BLOOD SPECIMEN / Unknown 02/14/2013 9:21 AM CDT 02/14/2013 9:21 AM CDT Gus Alanis MD CHEMISTRY Performing Organization Address City/[facility]/ZIP Co de Phone Number [facility] [address] [place] [address] * XR MAMMO BILAT SCREEN FFDM (09/13/2012 [...] Computer-Aided Detection. ?? COMPARISON FILM: Yes 08/12/10 [facility] 07/03/09 [facility] FINDINGS: ??Mammographically, the breast [...] of Computer-Aided Detection. COMPARISON FILM: Yes 08/12/10 [facility] 07/03/09 [facility] FINDINGS: Mammographically, the breast [...] Recently Relevant to Health Maintenance Care Teams Spot Facer Relationship Specialty Start Date End Date StephenteGus webber MD [address] [place] [address] [facility] - General 02/17/07
== END 2024-10-11 08:12 | disposition home or self-care (01) ==
PROVIDERS: PCP Internal Medicine; Visit Provider Internal Medicine
DX: Z00.00 Encounter for general adult medical examination without abnormal findings (principal); E03.9 Hypothyroidism, unspecified; E78.5 Hyperlipidemia, unspecified
CPT/HCPCS: 80061; 84443

== ENCOUNTER 2025-09-04 08:14 | Emergency (ER) | payer BC, SELFPAY ==
[2025-09-04 08:17] VITALS: BP 146/85; PULSE 72; RESP 16; TEMP 36.8; O2SAT 97; BMI 36.6
--- OUTSIDE RECORDS SUMMARY | 2025-09-04 08:18 | XMS_ITS | Clinical Summary ---
Author Organization [facility] Address [address] [place] [address] Care Team Providers Care Soda Fountain Clerk Name Role Phone Unavailable Primary Care Provider Unavailabl e Source Comments Patient records contain information from all sites at [facility]. For routine questions regarding patient records, call [phone] during business hours, M-F 8:00 AM - 5:00 PM Central Time. Record requests for emergency care only can be directed to [phone] at any time.[facility] Allergies Active Allergy Reactions Criticality Noted Date [...] years Palpitations 12/03/2011 Rhinitis Allergic 05/27/2011 Immunizations Immunization Administration Dates Next Due Influenza TIV (IM) 08/30/2018 Influenza, Seasonal, Injectable 10/09/2011 RZV (SHINGRIX) 01/26/2020 Td Preservative Free (TENIVA C, DECAVAC) 11/12/2020 Tdap 08/12/2010 influenza trivalent vaccine (6 months and older)(PF) 10/15/2013,10/06/2007 influenza vaccine quad (FLUZONE/FLUARIX) (6 months and older)(PF) 08/03/2017,08/23/2016,08/26/2015,2013 Family History Medical History Relation Name Comments Hyperlipidemia (high cholesterol) Mother Hypertension Mother Relation Name Status Comments Mother Social History Tobacco Use Types Packs/Day Years Used Date Smoking Tobacco: Former Smokeless Tobacco: Never Alcohol Use Standard Drinks/Week Comments Yes 0 (1 standard drink = 0.6 oz pur e alcohol) Comments No Sex and Gender Information Value Date Recorded Sex Assigned at Not on file Legal Sex Female 10:25 AM PAVER Gender Identity Not on file Sexual Orientation Not on file Last Filed Vital Signs Vital Sign Reading Time Taken Comments Blood Pressure 156/95 11/12/2020 2:02 PM PAVER Pulse 73 11/12/2020 2:02 PM PAVER Temperature 36.3 C (97.3 F) 11/12/2020 2:02 PM PAVER Respiratory Rate 20 11/12/2020 2:02 PM PAVER Oxygen Saturation 100% 11/12/2020 2:02 PM PAVER Inhaled Oxygen Concentration - - Weight 93.4 kg (205 lb 14.6 oz) 024 10:06 AM PAVER Height 159 cm (5' 2.6) 12/23/2023 10:0 6 AM PAVER Body Mass Index 36.95 12/23/2023 10:06 AM PAVER Plan of Treatment Health Maintenance Due Date Last Done Comments CT Colonography 1962 Cologuard 1962 Colonoscopy 1962 Colorectal Cancer Surveillance 1962 HIV Screening 1962 Hepatitis C Screening 1962 Lipid (Cholesterol) Screening 1962 Mammogram 1962 Pneumococcal vaccine (50+ years) (1 of 1 - PCV) 2012 Thyroid Stimulating Hormone (TSH) test for thyroid function 02/12/2020 02/11/2019 Fasting Glucose for Diabetes Screening 02/11/2022 02/11/2019 Depression Screening (Annual PHQ-2) 11/30/2024 COVID-19 Vaccine ( - 2024- season) 2025 Influenza Vaccine (#1) 2025 , 10/25/2019, 08/30/2018, Additional history exists Cervical/Vaginal Cancer [...] - 4.2 mIU/L 02/11/2019 6:20 PM CDT [facility] Comment: Biotin has been identified by the management specialist as a potential interfering substance. Higher concentrations of biotin may be found in multivitamins, hair/nail supplements, and workout supplements. If the result does not match clinical observations, repeat testing after patient refrains from the use of supplements for at least 12 hours. Blood (Blood, Venous) 02/11/2019 5:49 PM CDT 02/11/2019 5:51 PM CDT us Wade Trevino III, M.D. LAB BLOOD ADD-ON Final Result [facility] [address] [address] * (ABNORMAL) BMP (Basic Metabolic Panel) (02/11/2019 5:49 PM CDT) Potassium, P 3.4(L) 3.6 - 5.2 mmol/L 02/11/2019 6:11 PM CDT [facility] Sodium, P 141 135 - 145 mmol/L 02/11/2019 6:11 PM CDT [facility] Chloride, P 102 98 - 107 mmol/L 02/11/2019 6:11 PM CDT [facility] Bicarbonate, P 22 22 - 29 mmol/L 02/11/2019 6:11 PM CDT [facility] Anion Gap, P 17(H) 7 - 15 02/11/2019 6:11 PM CDT [facility] BUN (Blood Urea Nitrogen), P 13 6 - 21 mg/dL 02/11/2019 6:11 PM CDT [facility] Creatinine 0.83 0.59 - 1.04 mg/dL 02/11/2019 6:11 PM CDT [facility] eGFR-Black/Afri can South Korean >90 >=60 mL/min/BSA 02/11/2019 6:11 PM CDT [facility] Comment: ----ADDITIONAL INFORMATION---- Estimated GFR calculated using the 2009 CKD_EPI creatinine equation. eGFR Non-Black/Afric an South Korean 79 >=60 mL/min/BSA 02/11/2019 6:11 PM CDT [facility] Comment: ----ADDITIONAL INFORMATION---- Estimated GFR calculated using the 2009 CKD_EPI creatinine equation. Calcium, Total, P 9.1 8.6 - 10.0 mg/dL 02/11/2019 6:11 PM CDT [facility] Glucose, P 138 70 - 140 mg/dL 02/11/2019 6:11 PM CDT [facility] Blood (Blood, Venous) 02/11/2019 5:49 PM CDT 02/11/2019 5:51 PM CDT us Wade Trevino III, M.D. LAB BLOOD ADD-ON Final Result Performing Organization Address City/State/[facility] Co de Phone Number [facility] [address] [place] [address], [facility] from Last 3 Months or Most Recently Relevant to Health Maintenance Insurance [facility]
--- OUTSIDE RECORDS SUMMARY | 2025-09-04 08:18 | XMS_ITS | Clinical Summary ---
Author Organization [employer] [facility] Address [address] [place] [id number] Care Team Providers Care Helpdesk Specialist Name Role Phone Votel, Gus Bosch MD Primary Care Provider + Allergies No known active allergies Medications multivitamin (MVI) tablet Take 1 tablet by mouth once daily. 0 05/27/20 11 Active aspirin enteric coated (ECOTRIN) 325 mg tablet Take 1 tablet by mouth once daily with a meal. 0 02/15/20 13 Active Potassium 75 mg tablet Take by mouth. 0 02/15/20 13 Active fluticasone, 50 mcg per actuation, nasal (FLONASE) sprayIndications:A llergic rhinitis, cause unspecified 1 [place] once daily. 1 Bottle 5 02/18/20 13 Active PREMARIN 0.625 mg tabletIndications: Symptomatic states associated with artificial menopause TAKE ONE TABLET BY MOUTH EVERY DAY 90 Tab 1 03/02/20 13 Active medroxyPROGESTERon e (PROVERA) 2.5 mg tabletIndications: Symptomatic states associated with artificial menopause Take 1 tablet by mouth once daily. 90 tablet 0 11/28/20 13 Active levothyroxine (SYNTHROID) 88 mcg tabletIndications: Unspecified hypothyroidism Take 1 tablet by mouth once daily. 90 tablet 0 03/20/20 14 Active HYDROcodone-acetam inophen, 5-325 mg, (NORCO) per tabletIndications: Follow-up examination, following unspecified surgery Take 1-2 tablets by mouth every 4 hours if needed for Pain. Max acetaminophen dose: 4000mg in 24 hrs. 60 tablet 0 05/30/20 15 Active gabapentin (NEURONTIN) 100 mg capsule Take 1 capsule by mouth 2 times daily. 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 Gender Identity Not on file Sexual Orientation Not on file 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 file Not on file Not on file Obstetrics History Last Filed Vital Signs Vital Sign Reading Time Taken Comments Blood Pressure 124/87 11/07/2015 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 Pulse 73 11/07/2015 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 Temperature 36.7 C (98.1 F) 07/04/2015 10:19 AM CDT Respiratory Rate 18 08/13/2015 3:08 PM CDT Oxygen Saturation 97% 11/07/2015 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 Inhaled Oxygen Concentration - - Weight 96.4 kg (212 lb 9.6 oz) 11/07/2015 9:34 A M BOTTLE LINE WORKER Height 158.8 cm (5' 2.5) 02/14/2013 9:37 AM CDT Body Mass Index 38.27 02/14/2013 9:37 AM CDT Plan of Treatment Health Maintenance Due Date Last Done Comments Depression screening for age 12+ 1974 HIV for age 15-65 1977 BMI (ht and wt on same day) for age 18+ 1980 Hepatitis C screening for age 18-79 1980 Pneumococcal series for age 50+ (1 of 1 - PCV) 2012 Zoster (shingles) series for age 50+ (1 of 2) 2012 Mammogram for age 45-75 09/13/2013 09/13/20 12, 08/12/2010, 07/03/2009, Additional history exists Lipids for age 45-75 02/14/2018 02/14/2013, 01/27/2012, 08/12/2010, Additional history exists Colonoscopy through age 75 04/22/2018 04/22/2013, Tetanus booster 08/12/2020 08/12/2010 COVID-19 vaccine series ( - 2023- season) 2025 Influenza Vaccine (#1) 2025 Pap test for age 21-65 09/01/2026 3, 09/01/2023, 06/08/2018, Additional history exists RSV vaccine for adults or (1 - 1-dose 75+ series) 2037 Hepatitis B series for 19+ Aged Out N o longer eligible based on patient's age to [...] 16 Negative Negative 09/04/2023 1:16 PM CDT [facility] TYPE 18 Negative Negative 09/04/2023 1:16 PM CDT [facility] OTHER HIGH RISK TYPES Negative Negative 09/04/2023 1:16 PM CDT [facility] Other (Cervical) 09/01/2023 8:30 AM CDT 09/01/2023 5:21 PM CDT Narrative [facility] - 09/04/2023 1:16 PM CDT HPV types 16, 18, 31, 33, 35, 39, 45, 51, 52, 56, 58, 59, 66 and 68 DNA were undetectable or below the pre-set threshold. Methodology: Zayda Cruzito 4800 HPV Test us Alie Maya MD MICROBIOLOGY Final Resu lt [facility] [address] [place] [address], * (ABNORMAL) LIPID PANEL W REFLEX MEASURED LDL (02/14/2013 9:21 AM CDT) CHOLESTEROL,TOTAL 209(H) 100 - 199 mg/dL 02/14/2013 9:47 AM T [facility] TRIGLYCERIDES 76 <150 mg/dL 02/14/2013 9:47 AM T [facility] HDL CHOLESTEROL 68 >40 mg/dL 3 9:47 AM T [facility] NON-HDL CHOLESTEROL 141 <145 mg/dl 02/14/2013 9:47 AM T [facility] CHOL/HDL RATIO 3.07 <4.50 02/14/2013 9:47 AM T [facility] LDL CHOLESTEROL 126 <=130 mg/dL 02/14/2013 9:47 AM T [facility] PATIENT STATUS FASTING 02/14/2013 9:47 AM CDT [facility] Blood specimen (specimen) BLOOD SPECIMEN / Unknown 02/14/2013 9:21 AM CDT 02/14/2013 9:21 AM CDT us Gus Alanis MD CHEMISTRY Final Re sult [facility] [address] [place] [address] * XR MAMMO BILAT SCREEN FFDM (09/13/2012 2:53 PM CDT) Anatomical Region Laterality Modality BREASTS, Breast Left, Breast Right Bilateral Mammography Impressions 09/14/2012 12:15 PM CDT There is no radiographic evidence for malignancy. Recommend annual mammograms. A lay language report of this examination will be provided to the patient. MAMMOGRAM ASSESSMENT: ACR 1 Negative Narrative 09/14/2012 12:15 PM CDT XR MAMMO BILAT SCREEN FFDM [G0202.0] CLINICAL HISTORY: This is an asymptomatic 52 y.o. patient. INDICATION FOR EXAM: Mammogram Screening. TECHNIQUE: CC & MLO views were obtained. This digital study was evaluated with the assistance of Computer-Aided Detection. COMPARISON FILM: Yes 08/12/10 [facility] 07/03/09 [facility] FINDINGS: Mammographically, the breast tissue has scattered fibroglandular densities (approximately 25% - 50% glandular). There are no dominant masses, suspicious micro calcifications or areas of architectural distortion. Procedure Note Rl Samuels MD - 09/14/2012 XR MAMMO BILAT SCREEN FFDM [G0202.0] CLINICAL HISTORY: This is an asymptomatic 52 y.o. patient. INDICATION FOR EXAM: Mammogram Screening. TECHNIQUE: CC & MLO views were obtained. This digital study was evaluatedwith the assistance of Computer-Aided Detection. COMPARISON FILM: Yes 08/12/10 [facility] 07/03/09 [facility] FINDINGS: Mammographically, the breast tissue has scatteredfibroglandular densities (approximately 25% - 50% glandular). There areno dominant masses, suspicious micro calcifications or areas ofarchitectural distortion. IMPRESSION: There is no radiographic evidence for malignancy. Recommendannual mammograms. A lay language report of this examination will be provided to the patient. MAMMOGRAM ASSESSMENT: ACR 1 Negative us Gus Alanis MD MAMMO Final Re sult from Last 3 Months or Most Recently Relevant to Health Maintenance Insurance [facility] Care Teams Helpdesk Specialist Relationship Specialty Start Date End Date Votel, Gus Bosch MD [address] [place] [address] PCP - General 02/17/07
--- NOTE | 2025-09-04 08:26 | CRLHL7_ITS ---
For Patients: As a result of the Century Cures Act, medical imaging exams and procedure reports are released immediately into your electronic medical record. You may view this report before your referring provider. If you have questions, please contact your health care provider. Indication: Fall, pain Technique: Three views right foot Comparison: None Findings/Impression: Status post 1st tarsometatarsal fixation with screw and plate and screw fixation. Status post either prior fracture or osteotomy with screw fixation of the distal 5th metatarsal. No clear acute foot fracture. Please see ankle report for comments about the acute medial malleolar fracture. Hammertoe deformities of the 2nd through 5th digits noted. Dorsal midfoot osteophytes. Soft tissue swelling at the level of the ankle. Dictated by Richard Delacruz MD @ 09/04/2025 10:10:05 AM (Electronically Signed)
--- NOTE | 2025-09-04 09:33 | ED_ITS ---
HPI - General Adult General Date Seen: 09/04/25 Chief complaint: Extremity Pain/Injury, Lower Stated complaint: R ankle and heel injury from fall Time Seen by Provider: 09/04/25 09:25 History of Present Illness HPI narrative: Very pleasant 65-year-old female presenting to the ER this morning with her . She has a past medical history of previous right foot surgery, elevated BMI, hypothyroidism. She injured her right ankle yesterday at about 4:00 p.m.. She was doing laundry. She had thrown her blankets sheets down the steps to the laundry room. As she was coming down the steps she saw that the combat her head not quite gone all the way to the bottom so she tried to kick it to get down the steps so that she had enough to step on it. When she kicked it her foot got caught in the comforter and then she fell. She tried to fall backwards on the steps rather than forward onto her face. She thinks she got her right foot caught underneath her body and she forcefully plantar flex her ankle. She started having pain in that right ankle immediately. She had to crawl on her knees to get back up the steps and then used a chair and her left leg to get around. She started icing her ankle because it got bruised and swollen yesterday and has been taking Tylenol. She was able to sleep last night but this morning it was more painful (but less swollen after icing). She was not really able to bear weight again so decided to come here to the ER to get checked out. She is not having any pain in her knee. No other injury from the fall. No hip pain. She did not hit her head. No left lower extremity injury. Related Data Home Medications ?Medication ?Instructions ?Recorded ?Confirmed aspirin 325 mg tablet 325 mg PO QDAY 08/19/2205/24 multivitamin 1 tab PO QAM 08/19/22 ferrous sulfate 325 mg (65 mg 325 mg PO 2XW 09/01/23 1 iron) tablet (Feosol) Previous Rx's ?Medication ?Instructions ?Recorded gabapentin 100 mg capsule 200 mg (2 x 100 mg) PO .HS # 180 10/11/24 caps levothyroxine 88 mcg tablet 88 mcg PO DAILY #90 tabs 1 12/11/23 Allergies Allergy/AdvReac Type Severity Reaction Status Date / Time No Known Drug Allergies Allergy Verified 09/04/25 08:25 [facility] Surgical History History of tubal ligation ?Z98.51 - Tubal ligation status (ICD-10) History of hernia repair ?Z98.890 - Other specified postprocedural states (ICD-10) ?Z87.19 - Personal history of other diseases of the digestive system (ICD-10) Social History What is your current living situation?: declined to answer Problems where you live: declined to answer In the past 12 months, utilities in danger of being shut off: declined to answer In past 12 months, lack of transportation kept you from medical appts, meetings, work, or getting things needed for daily living: no In the past 12 mos, have been you worried that your food would run out before you had money to buy more?: declined to answer In the past 12 mos, the food you bought just didn't last and you didn't have money to buy more?: declined to answer Smoking Status: Former smoker Do you use any of these nicotine containing products: None Second hand tobacco smoke exposure: No How often do you have a drink containing alcohol: never AUDIT-C Alcohol total score: 0 Non-prescribed substance use: denies use How often does anyone, including family, friends and others, physically hurt you : decline to answer How often does anyone, including family, friends and others, insult or talk down to you: decline to answer How often does anyone, including family, friends and others, threaten you with harm: decline to answer How often does anyone, including family, friends and others, scream or curse at you: decline to answer Health Related Social Needs: unsheltered homelessness (Z59.02) Exam Narrative: Exam Narrative: Constitutional: Appears well-developed and well-nourished. Active. Non-toxic appearing. Very polite. attentively at her side HENT: Head: Atraumatic. No signs of injury. Nose: No nasal discharge. Mouth/Throat: Mucous membranes are moist. No trismus. Mucous membranes moist. Eyes: Conjunctivae normal and EOM are normal. Pupils are equal, round, and reactive to light. Right eye exhibits no discharge. Left eye exhibits no discharge. No icterus. Neck: Normal range of motion. Neck supple. No adenopathy. No stridor. Cardiovascular: Normal rate and regular rhythm. No murmur heard. No murmurs, rubs, or gallops. Brisk capillary refill. strong symmetric DP artery pulses. Pulmonary/Chest: Effort normal. No stridor. No respiratory distress. Musculoskeletal: Normal except for her right ankle- range of motion. No edema. No tenderness. No deformity. Right lower extremity: Hip, thigh, quad, hamstring are normal. Knee normal. No tenderness over the proximal fibula or tibia. Normal range of motion the knee. No tenderness over the tibial spine, gastrocs, Achilles. She does have ecchymosis and swelling of the lateral and medial malleoli of the right ankle. She is more tender over the medial malleolus and is not really tender over the lateral malleolus. No definite bony crepitus or deformity. No tenderness of the calcaneus. Mild tenderness of the midfoot, proximal to the lateral malleolus. Forefoot and toes nontender. Intact distal sensory function to light touch on the sole of the foot and the dorsal 1st webspace. Normal distal cap refill. Normal toe wiggling. Ankle plantar flexion and dorsiflexion are limited by pain but she is able to move it about 10-20 degrees. Neurological: Alert. Normal strength. No cranial nerve deficit or sensory deficit. Coordination normal. GCS eye subscore is 4. GCS verbal subscore is 5. GCS motor subscore is 6. Skin: Skin is warm. No rash noted. Const: Vital Signs, click to edit/add: Vital Signs - 24 hr 09/04/25 08:17 Temperature 98.2 F Pulse Rate [Pulse Oximeter] 72 Respiratory Rate 16 Blood Pressure [Ri ght Upper Arm] 146/85 H Pulse Oximetry 97 Oxygen Delivery Me thod Room Air Course Vital Signs Vital signs: Initial Vital Signs Temperature 98.2 F 09/04/25 08:17 Temperature Source Temporal Artery Scan 09/04/25 08:17 Pulse Rate 72 09/04/25 08:17 Respiratory Rate 16 09/04/25 08:17 Blood Pressure 146/85 H 09/04/25 08:17 Blood Pressure Mean 105 09/04/25 08:17 Blood Pressure Position Sitting 09/04/25 08:17 Pulse Oximetry 97 09/04/25 08:17 Oxygen Delivery Method Room Air 09/04/25 08:17 Vital Signs Temperature 98.2 F 09/04/25 08:17 Pulse Rate 72 09/04/25 08:17 Respiratory Rate 16 09/04/25 08:17 Blood Pressure 146/85 H 09/04/25 08:17 Pulse Oximetry 97 09/04/25 08:17 Oxygen Delivery Method Room Air 09/04/25 08:17 Temperature 98.2 F 09/04/25 08:17 Pulse Rate 72 09/04/25 08:17 Respiratory Rate 16 09/04/25 08:17 Blood Pressure 146/85 H 09/04/25 08:17 Pulse Oximetry 97 09/04/25 08:17 Oxygen Delivery Method Room Air 09/04/25 08:17 Medications Administered Medications: Discontinued Medications Generic Name Dose Route Start Last Admin Trade Name Uyen PRN Reason Stop Dose Admin Ibuprofen 600 mg 09/04/25 09:45 09/04/25 10:05 Ibuprofen 200 Mg Tablet PO 09/04/25 09:46 600 mg ONCE ONE Administration Medical Decision Making MDM Narrative Medical decision making narrative: Very pleasant 65-year-old female presenting to the ER today with swelling, bruising, pain affecting her right ankle after she had a trip and fall yesterday at about 4:00 p.m. while going to her steps. On clinical exam she has significant swelling and bruising of the ankle over the medial and lateral malleoli and also some pain in the midfoot. X-rays of her foot and ankle were obtained and show evidence for a a nondisplaced fracture through the medial malleolus. She is neurovascularly intact. Pain is controlled with OTC medications. Discussed with our orthopedic team. They recommend that she is safe to go home in a controlled ankle motion boot, nonweightbearing on crutches. Follow up in Ortho Clinic within the next couple of days. Per my discussion with the orthopedic Emily, Alecia, and royer Arnold, they anticipate the patient will likely need surgery because this is an unstable fracture. For her part, the patient referred to try to let the fracture will non operatively. She was contacted while she was here in the ER by Orthopedics to arrange her ER follow- up visit. Precautions for return to the ER reviewed. Questions answered. Imaging Data XR foot: Attestation: I have reviewed the pertinent imaging results. Radiologist's impression: Findings/Impression: Status post 1st tarsometatarsal fixation with screw and plate and screw fixation. Status post either prior fracture or osteotomy with screw fixation of the distal 5th metatarsal. No clear acute foot fracture. Please see ankle report for comments about the acute medial malleolar fracture. Hammertoe deformities of the 2nd through 5th digits noted. Dorsal midfoot osteophytes. Soft tissue swelling at the level of the ankle. XR R ankle: Attestation: I have reviewed the pertinent imaging results. Radiologist's impression: Findings/Impression: Bones: There is an acute oblique medial malleolar fracture without significant displacement on these views. First metatarsal plate and screws, please see foot report for additional comments. Joint spaces: No dislocation. Soft tissues: Diffuse soft tissue swelling. Well-formed enthesopathic spurring at the distal Achilles tendon. Discharge Plan Discharge Clinical Impression: Ankle fracture, right Patient Disposition: Home, Self-Care Condition: Stable Instructions: Ankle Fracture (DC) Additional Instructions: As we discussed, your x-ray show that you have a broken bone in your ankle (the bottom end of your tibia bone on the inside of your ankle). Please wear the ankle boot whenever you are up and around and use crutches to keep weight off of your right foot for the next few days. To manage pain continue to use Tylenol or ibuprofen if needed. Use an ice pack for 20 minutes every 2-3 hours to help reduce swelling. Please follow-up with the [facility] within the next 2-3 days for a recheck. You should receive a phone call from the orthopedic clinic to schedule your ER follow-up. If you do not receive a call, or if you need to reschedule your appointment you can call the Ortho Clinic at [phone] Please come back to the ER right away if you have any symptoms such as worsening or severe uncontrolled pain, new numbness or tingling in your foot, pallor or discoloration of your foot, or any other concerns. Prescriptions: No Action aspirin 325 mg tablet 325 mg PO QDAY multivitamin Tablet 1 tab PO QAM ferrous sulfate [Feosol] 325 mg (65 mg iron) tablet 325 mg PO 2XW gabapentin 100 mg capsule 200 mg PO .HS Qty: 180 3RF levothyroxine 88 mcg tablet 88 mcg PO DAILY Qty: 90 3RF Follow Up/Referrals: Alie Maya MD [Primary Care Provider, Internal Medicine] Stand Alone Forms: [employer] Info Instructions
--- NOTE | 2025-09-04 09:39 | CRLHL7_ITS ---
For Patients: As a result of the Century Cures Act, medical imaging exams and procedure reports are released immediately into your electronic medical record. You may view this report before your referring provider. If you have questions, please contact your health care provider. Indication: Pain after fall Technique: Three views right ankle Comparison: None Findings/Impression: Bones: There is an acute oblique medial malleolar fracture without significant displacement on these views. First metatarsal plate and screws, please see foot report for additional comments. Joint spaces: No dislocation. Soft tissues: Diffuse soft tissue swelling. Well-formed enthesopathic spurring at the distal Achilles tendon. Dictated by Richard Delacruz MD @ 09/04/2025 10:07:48 AM (Electronically Signed)
[2025-09-04] MEDS: IBUPROFEN 200 MG TABLET 600 MG PO (10:05)
== END 2025-09-04 11:28 | disposition home or self-care (01) ==
PROVIDERS: Emergency Provider Emergency Medicine; PCP Internal Medicine
DX: S82.51XA Displaced fracture of medial malleolus of right tibia, initial encounter for closed fracture (principal); W10.9XXA Fall (on) (from) unspecified stairs and steps, initial encounter
CPT/HCPCS: 73610; 73630; 99282; 99283; 99284; A9270

== ENCOUNTER 2025-09-13 06:58 | Day surgery (SDC) | payer BC, SELFPAY ==
[2025-09-13] VITALS (16 sets, daily range): BP systolic 116–158; BP diastolic 62–104; PULSE 50–70; RESP 12–18; TEMP 36–36.7; O2SAT 95–100; BMI 42.0
--- NOTE | 2025-09-13 08:14 | P.ORPRC_ITS ---
Procedure Note Date of procedure: 09/13/25 Procedure: PREOPERATIVE DIAGNOSES: 1. Right medial malleolus ankle fracture, closed, displaced POSTOPERATIVE DIAGNOSES: 1. Right medial malleolus ankle fracture, closed, displaced NAME OF OPERATION: 1. Right medial malleolus ankle fracture open reduction internal fixation SURGEON: Allan Maynard MD SUPERVISOR FUNCTIONAL TESTING: Catalina Figueroa P.A.-C.; An licensed nursing assistant was critical for this case to aid in patient positioning, leg manipulation, tissue retraction, closure, and splint application. ANESTHESIA: Spinal plus adductor canal block. EBL: 5 mL IMPLANTS: 4.0 mm partially-threaded cannulated screws x2 TOURNIQUET: 41 minutes at 250 mmHg INDICATIONS: The patient is a pleasant 65-year-old female who sustained a right ankle injury in the recent past with difficulty bearing weight. Workup included x-rays, which revealed a displaced medial malleolus ankle fracture. Given the displacement of this fracture, surgery was recommended to improve alignment and allow for healing in a more anatomic position. Prior to surgery, the risks and benefits of the procedure were discussed with the patient, all questions were answered, and informed consent was obtained. FINDINGS: Closed, displaced, medial malleolus fracture. Intact syndesmosis. PROCEDURE: Patient seen preoperatively and operative site was marked. A regional nerve block was performed by anesthesia staff. The patient was then brought to the operating room and spinal anesthesia was administered. Patient was then placed into the supine position on the OR table. The operative extremity was prepped and draped in the usual sterile fashion. IV Ancef was administered for prophylaxis. A surgical time-out was performed confirming patient identity, surgical site, and surgical procedure. The operative extremity was exsanguinated, and the tourniquet inflated. A longitudinal incision was made overlying the medial malleolar fracture. Blunt dissection was utilized to dissect through the subcutaneous tissues. Neurovascular structures were identified and protected throughout the course of procedure. The fracture was identified and cleared of interposed periosteum and fracture hematoma. The fracture was reduced and held in place with a pointed reduction clamp. Two guidewires for the 4.0 mm cannulated screws were then drilled in a retrograde fashion across the fracture. Fluoroscopic imaging confirmed anatomic reduction of the fracture and good placement of the guidewire. The guidewires were then overdrilled and partially-threaded 4.0 mm cannulated screws were secured into position. Guidewires were then removed. Fluoroscopic imaging confirmed anatomic reduction with good compression and good placement of the screws. After confirming appropriate reduction and positioning of the screws using fluoroscopic imaging, an external rotation stress was placed on the ankle to test for syndesmosis stability. Syndesmosis was confirmed to be stable with no widening of the syndesmosis or medial clear space. At this stage, the surgical wound was thoroughly irrigated with normal saline, and the tourniquet was released . Total tourniquet time was 41 minutes. Hemostasis was achieved electrocautery. The fascia was closed with #0 Vicryl [id number] interrupted stitches. Skin incision was closed with 2-0 Vicryl inverted interrupted subcutaneous stitches followed by running 2-0 Stratafix subcuticular stitch and Dermabond. Sterile dressings and a well-padded short- leg splint were applied. The patient was awoken from anesthesia and transferred to the PACU in stable condition. PLAN: 1. Ice and elevation of operative extremity for pain and swelling. 2. Tylenol and oxycodone as needed for pain. 3. Toe-touch weight-bearing operative extremity. 4. Keep splint clean and dry. 5. Follow up in Orthopedic Clinic in 10-14 days for wound check and splint removal. 6. Will initiate formal physical therapy in approximately 2 weeks.
--- NOTE | 2025-09-13 08:14 | W.PM.H&PU ---
History & Physical Update History & Physical Update H&P Reviewed and patient assessed: No changes noted
[2025-09-13] MEDS: SODIUM CHLORIDE 0.9 % (FLUSH) 10 ML SYRINGE IVF (08:30)
[2025-09-13] MEDS: LACTATED RINGERS 1000 ML 1,000 ML 100 ML IV (08:30)
[2025-09-13] MEDS: MIDAZOLAM HCL 1 MG/ML inj IVP (08:32)
--- NOTE | 2025-09-13 08:45 | W.PM.NB ---
Nerve Block Nerve Block Time Seen by Provider: 08:30 Date Seen: 09/13/25 Type of block requested by surgeon for post-operative analgesia: adductor canal Side: right Time out performed: Yes Verification of patient name: Yes Verification of date of : Yes Site marking: site marked Name of person performing procedure: Damaris Landry Assistants, if any: Rashel Reaves Continuous monitoring Was continuous monitoring of O2 sat, B/P, conveyor monitor, recorded every 15 minutes?: Yes Procedure Checklist: sterile prep, needles and gloves Ultrasound guided. Images saved: Yes Medications given in 5ml increments after negative aspiration: Ropivicaine %: 0.5 mL: 15 Needle gauge: 20 Patient tolerated procedure well: Yes Block Charges Block Charge (with Pro Fee): Femoral Nerve Use of Ultrasound Machine for Block: Yes- US Guidance/pain block
--- NOTE | 2025-09-13 08:50 | SUR.PREOP ---
TIME?OUT:?0830 PT/RN/MDA?VERIFICATION?OF?SURGICAL?SITE,?PROCEDURE,?AND?CONSENT OBTAINED?PRIOR?TO?INVASIVE?PROCEDURE.
--- NOTE | 2025-09-13 09:00 | CRLHL7_ITS ---
For Patients: As a result of the Century Cures Act, medical imaging exams and procedure reports are released immediately into your electronic medical record. You may view this report before your referring provider. If you have questions, please contact your health care provider. Indication: Right ankle ORIF Technique: Procedural fluoroscopy. Three images saved. Fluoro time: 38 seconds Comparison: None. Findings/Impression: Images show minimally less ORIF. Dictated by Isaac Sen MD @ 09/14/2025 11:32:17 AM (Electronically Signed)
[2025-09-13] MEDS: BUPIVACAINE 0.5 %/EPI 1:200K 30 ML INJECTION (10:10)
--- NOTE | 2025-09-13 10:44 | P.ANES_ITS ---
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
--- NOTE | 2025-09-13 10:44 | W.ANESCHARGE ---
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
== END 2025-09-13 12:55 | disposition home or self-care (01) ==
LOC: OR 06:59
PROVIDERS: PCP Internal Medicine; Visit Provider Orthopaedic Surgery
PROC: (CPT 27766; principal; 2025-09-13 09:00)
DX: S82.51XA Displaced fracture of medial malleolus of right tibia, initial encounter for closed fracture (principal); G89.18 Other acute postprocedural pain
CPT/HCPCS: 27766; 01480; 64447; 73600; 76000; 76942; C1713; J0690; J1100; J1885; J2250; J2405; J2704; J2795; J3010; J3490; J7120

== ENCOUNTER 2025-10-11 14:09 | Outpatient (CLI) | payer BC, SELFPAY ==
--- NOTE | 2025-10-11 15:00 | CRLHL7_ITS ---
For Patients: As a result of the Century Cures Act, medical imaging exams and procedure reports are released immediately into your electronic medical record. You may view this report before your referring provider. If you have questions, please contact your health care provider. INDICATION: BILATERAL SCREENING MAMMOGRAM, ASYMPTOMATIC 65 Y/O FEMALE COMPARISON: 09/23/2024, 09/21/2023, 07/21/2022 TECHNIQUE: Digital mammogram in CC and MLO projections including computer-aided detection (CAD) and tomosynthesis. BREAST COMPOSITION: There are scattered areas of fibroglandular density. FINDINGS: No suspicious findings. ASSESSMENT: BI-RADS 1 Negative RECOMMENDATION: Annual screening mammogram. A lay language report of this examination will be provided to the patient. Dictated by: Stoney Morales MD @ 10/12/2025 09:03:09 (Electronically Signed)
== END 2025-10-11 14:10 | disposition home or self-care (01) ==
LOC: MAMMO 14:10
PROVIDERS: PCP Internal Medicine; Visit Provider Internal Medicine
DX: Z12.31 Encounter for screening mammogram for malignant neoplasm of breast (principal)
CPT/HCPCS: 77063; 77067

== ENCOUNTER 2025-10-31 08:07 | Outpatient (CLI) | payer BC, SELFPAY | END 2025-10-31 08:08 | disposition home or self-care (01) | PROVIDERS: PCP Internal Medicine; Visit Provider Internal Medicine | DX: E03.9 Hypothyroidism, unspecified (principal); E78.5 Hyperlipidemia, unspecified | CPT/HCPCS: 80061; 84443 ==